=== PATIENT | female | born 1960 | race African-American/Black ===

== ENCOUNTER 2017-01-03 23:47 | Emergency (ER) ==
[2017-01-04] VITALS: BP 180/112; TEMP 98; BMI 29.2
[2017-01-04] MEDS ORDERED: LASIX IM STA (00:23)
[2017-01-04 01:04] LABS: BASOPHILS # (AUTO) 0.1 K/uL (0-0.2); EOSINOPHILS # (AUTO) 0.1 K/ul (0.0-0.7); EOSINOPHILS % (AUTO) 1.6 % (0.0-7.0); HEMATOCRIT 34.7 % (37.0-47.0); HEMOGLOBIN 11.3 g/dl (12.0-16.0); IMMATURE GRANULOCYTE % (AUTO) 0.4 % (0.0-5.0); LYMPHOCYTES % (AUTO) 29.3 (10.0-50.0); MEAN CORPUSCULAR HEMOGLOBIN 29.6 pg (27.0-31.0); MEAN CORPUSCULAR HGB CONC 32.6 (31.8-35.4); MEAN CORPUSCULAR VOLUME 90.8 fl (81.0-99.0); MONOCYTES # (AUTO) 0.6 K/uL (0.4-2.0); MONOCYTES % (AUTO) 8.7 (0-10); PLATELET COUNT 369 10^3/uL (140-440); RED BLOOD COUNT 3.82 10^6/ul (4.20-5.40); WHITE BLOOD COUNT 6.82 K/ul (4.6-10.2)
[2017-01-04 01:28] LABS: ALBUMIN 2.6 g/dL (3.4-5.0); ALBUMIN/GLOBULIN RATIO 0.67; ANION GAP 13.2; BILIRUBIN,TOTAL 0.63 mg/dL (0.00-1.20); BUN/CREATININE RATIO 15.83; CALCIUM 8.5 mg/dL (8.2-10.2); CREATININE 1.2 mg/dL (0.60-1.30); POTASSIUM 3.2 mmol/L (3.5-5.10); TOTAL PROTEIN 6.5 g/dL (6.4-8.2)
[2017-01-04] MEDS ORDERED: K-DUR PO STA (02:24)
--- NOTE | 2017-01-04 02:27 | ED.PDOC ---
General ED Provider: Dr. KAIDEN ABDALLA-ER Chief Complaint: Extremity Swelling/Pain Stated Complaint: my legs are swelling and my weight is up--i have not been taking the lasix like i should Time Seen by Physician: 23:50 Mode of Arrival: Walk-In Information Source: Patient Exam Limitations: No limitations Primary Care Provider: KENNY STARR Nursing and Triage Documentation Reviewed and Agree: Yes Cardiovascular Complaint Exam - Hypertension Complaint/Exam Onset/Duration: 24hrs Symptoms Are: Still present Timing: Constant Aggravating: Reports: None Alleviating: Reports: None Associated Signs and Symptoms: Reports: Swelling. Denies: Chest pain, Vision changes, Anxiety, Recent stress, Headache, Numbness, Tingling, Weakness, Dizziness, Short of air Cardiac Risk Factors: Reports: Hypertension Recent Change in Medications: No A/V [place]: No Papilledema Present: No JVD Present: No Carotid Bruit Present: No Femoral Pulses Bounding: Yes Differential Diagnoses: Other Review of Systems - Review Of Systems Constitutional: Reports: No symptoms Eyes: Reports: No symptoms Ears, Nose, Mouth, Throat: Reports: No symptoms Respiratory: Reports: No symptoms Cardiac: Reports: No symptoms, Other (leg swelling) GI: Reports: No symptoms : Reports: No symptoms Musculoskeletal: Reports: No symptoms Skin: Reports: No symptoms Neurological: Reports: Anxiety Endocrine: Reports: No symptoms Hematologic/Lymphatic: Reports: No symptoms All Other Systems: Reviewed and Negative Past Medical History - Past Medical History Previously Healthy: Yes Endocrine: Reports: DM 2 Cardiovascular: Reports: Hypertension, CHF Respiratory: Reports: Bronchitis Hematological: Reports: None Gastrointestinal: Reports: None Genitourinary: Reports: None Neuro/Psych: Reports: None Musculoskeletal: Reports: Arthritis, Other Cancer: Reports: None Last Menstrual Period: 1984 hyst - Surgical History General Surgical History: Reports: Hysterectomy (1984 Hysterectomy), Orthopedic (no repair of left rotator cuff), Unknown - Family History Family History: Reports: Unknown - Social History Smoking Status: Current every day smoker, Heavy tobacco smoker Hx Substance Use: No Alcohol Screening: None Lives: With family - Immunizations Tetanus Shot up to Date: No (unsure) Physical Exam - Physical Exam Appearance: Well-appearing, No pain distress, Well-nourished Eyes: CHOCO, EOMI, Conjunctiva clear ENT: Ears normal, Nose normal, Oropharynx normal Neck: Supple Respiratory: Airway patent, Breath sounds clear, Breath sounds equal, Respirations nonlabored Cardiovascular: RRR GI/: Soft Musculoskeletal: Edema Skin: Warm, Dry, Normal color Neurological: Sensation intact Psychiatric: Affect appropriate, Mood appropriate Re-Evaluation - Re-Evaluation Time of Re-Evaluation: 02:27 Status: Improved (voided several times--noted improved in leg edema) Vital Signs Stable: Yes Pain Level: 0 Appearance: NAD Lungs: Clear Skin: Warm and Dry Neuro: Alert and Oriented X3 CV: RRR Critical Care Note - Critical Care Note Total Time (mins): 0 Course - Course Hematology/Chemistry: 01/04/17 00:45 01/04/17 00:45 Orders, Labs, Meds: Lab Review 01/04/17 01/04/17 00:45 00:45 WBC 6.82 RBC 3.82 L Hgb 11.3 L Hct 34.7 L MCV 90.8 MCH 29.6 MCHC 32.6 RDW Coeff of [place] 15.6 H Plt Count 369 Immature Gran % (Auto) 0.4 Neut % (Auto) 59.0 Lymph % (Auto) 29.3 [place] % (Auto) 8.7 Eos % (Auto) 1.6 Baso % (Auto) 1.0 Immature Gran # (Auto) 0.0 Neut # 4.0 Lymph # 2.0 [place] # 0.6 Eos # 0.1 Baso # 0.1 Sodium 142 Potassium 3.2 L Chloride 106 Carbon Dioxide 26 Anion Gap 13.2 BUN 19 H Creatinine 1.20 Estimated GFR (MDRD) 56.00 BUN/Creatinine Ratio 15.83 Glucose 232 H Calcium 8.5 Total Bilirubin 0.63 AST 18 ALT 22 Alkaline Phosphatase 117 H Total Protein 6.5 Albumin 2.6 L Globulin 3.9 Albumin/Globulin Ratio 0.67 Orders Category Date Time Status I and O [INTAKE & OUTPUT] Q4HR CARE 01/04/17 01:20 Active CBC W/ AUTO DIFF Stat LAB 01/04/17 00:45 Completed CMP [COMPREHENSIVE METABOLIC PANEL] Stat LAB 01/04/17 00:45 Completed Furosemide [Lasix] MEDS 01/04/17 00:23 Discontinued 80 mg IM ONCE STA Potassium Chloride [K-Dur] MEDS 01/04/17 02:24 Stat 40 meq PO ONCE STA Medications Generic Name Dose Route Start Last Admin Trade Name Freq PRN Reason Stop Dose Admin Potassium Chloride 40 meq 01/04/17 02:24 K-Dur PO 01/04/17 02:25 ONCE STA Discontinued Medications Generic Name Dose Route Start Last Admin Trade Name Maame PRN Reason Stop Dose Admin Furosemide 80 mg 01/04/17 00:23 01/04/17 00:35 Lasix IM 01/04/17 00:24 80 mg ONCE STA Administration Vital Signs: Temp Pulse Resp BP Pulse Ox 01/03/17 23:49 98 F 96 H 18 180/112 H 96 FRANCIS Risk Score FRANCIS Risk Score: Risk Score Odds of by 30D 0 0.1 (0.1-0.2) 1 0.3 (0.2-0.3) 2 0.4 (0.3-0.5) 3 0.7 (0.6-0.9) 4 1.2 (1.0-1.5) 5 2.2 (1.9-2.6) 6 3.0 (2.5-3.6) 7 4.8 (3.8-6.1) Departure - Departure Time of Disposition: :28 Disposition: HOME SELF-CARE Discharge Problem: Acute exacerbation of CHF (congestive heart failure) Qualifiers: Congestive heart failure type: unspecified congestive heart failure type Qualified Code(s): I50.9 - Heart failure, unspecified Instructions: Heart Failure (ED) Condition: Good Pt referred to PMD for follow-up: Yes Additional Instructions: take lasix as prescribed--add k-dur 20meq q daily--come to office next week for bmp and magnesium Allergies/Adverse Reactions: Allergies Penicillins Adverse Reaction (Verified 02/04/16 03:25) Possible reaction, reaction unknown sulfamethoxazole [From Bactrim] Adverse Reaction (Verified 02/04/16 03:25) Dizziness trimethoprim [From Bactrim] Adverse Reaction (Verified 02/04/16 03:25) Dizziness Home Medications: Ambulatory Orders Furosemide [Lasix Tab] 20 mg PO BID 12/21/14 Insulin Lispro [Humalog] 5 unit SUBCUT TIDWM 12/21/14 Hydrocodone Bit/Acetaminophen [[place] 5-325] 1 - 2 tab PO Q6HR PRN #12 tablet Albuterol Sulfate [Proair Hfa] 2 puff IH QID #1 puff 02/07/16 Metoprolol Tartrate [Lopressor] 25 mg PO DAILY #1 02/07/16 Tiotropium [place] [Spiriva] 18 mcg IH DAILY #1 cap.w.dev 02/07/16 Disposition Discussed With: Patient
== END 2017-01-04 02:40 | disposition home or self-care (01) ==
LOC: ED 23:47
DX: I50.9 Heart failure, unspecified (principal); I10 Essential (primary) hypertension; E11.9 Type 2 diabetes mellitus without complications; F17.210 Nicotine dependence, cigarettes, uncomplicated; Z79.899 Other long term (current) drug therapy
CPT/HCPCS: 36415; 80053; 85025; 96372; 99283

== ENCOUNTER 2017-01-24 11:01 | Emergency (ER) ==
[2017-01-24 11:08] VITALS: BP 182/79; TEMP 97.1; BMI 28.4
[2017-01-24] MEDS ORDERED: SOLU-MEDROL 125 MG IVP STA (11:21)
[2017-01-24] MEDS ORDERED: DUONEB NEB STA (11:21)
[2017-01-24 11:40] LABS: ABG BASE EXCESS 1 (-2.0-2.0); ABG HCO3 25.9 (22.0-26.0); ABG PCO2 43.1 mmHg (35-45); ABG PH 7.387 (7.35-7.45); ABG TCO2 27 (22.0-28.0)
[2017-01-24 11:47] LABS: BASOPHILS # (AUTO) 0.1 K/uL (0-0.2); BASOPHILS % (AUTO) 0.8 % (0.0-3.0); EOSINOPHILS # (AUTO) 0.1 K/ul (0.0-0.7); EOSINOPHILS % (AUTO) 1.4 % (0.0-7.0); HEMATOCRIT 35.9 % (37.0-47.0); HEMOGLOBIN 11.6 g/dl (12.0-16.0); IMMATURE GRANULOCYTE % (AUTO) 0.5 % (0.0-5.0); LYMPHOCYTES # (AUTO) 1.7 K/uL (0.60-3.4); LYMPHOCYTES % (AUTO) 28.5 (10.0-50.0); MEAN CORPUSCULAR HEMOGLOBIN 29.4 pg (27.0-31.0); MEAN CORPUSCULAR HGB CONC 32.3 (31.8-35.4); MEAN CORPUSCULAR VOLUME 91.1 fl (81.0-99.0); MONOCYTES # (AUTO) 0.5 K/uL (0.4-2.0); MONOCYTES % (AUTO) 8.6 (0-10); NEUTROPHILS # (AUTO) 3.6 K/ul (2.0-6.9); NEUTROPHILS % (AUTO) 60.2; PLATELET COUNT 392 10^3/uL (140-440); RED BLOOD COUNT 3.94 10^6/ul (4.20-5.40)
[2017-01-24 12:06] LABS: FLU INTERNAL QC INTERNAL QC VALID; RAPID FLU A NEGATIVE (NEGATIVE); RAPID FLU B NEGATIVE (NEGATIVE)
[2017-01-24 12:18] LABS: ALBUMIN 2.6 g/dL (3.4-5.0); ALBUMIN/GLOBULIN RATIO 0.74; ANION GAP 10.8; BILIRUBIN,TOTAL 0.81 mg/dL (0.00-1.20); BUN/CREATININE RATIO 17.14; CREATININE 1.05 mg/dL (0.60-1.30); POTASSIUM 3.8 mmol/L (3.5-5.10); TOTAL PROTEIN 6.1 g/dL (6.4-8.2); TROPONIN I 0.037 ng/ml (0.0000-0.4000)
[2017-01-24] MEDS ORDERED: ZITHROMAX PO STA (13:14)
--- NOTE | 2017-01-24 13:19 | ED.PDOC ---
General ED Provider: Dr. TYRELL DANIELS Chief Complaint: Shortness of Air Stated Complaint: shortness of breath Time Seen by Physician: 11:00 Mode of Arrival: Walk-In Information Source: Patient Exam Limitations: No limitations Primary Care Provider: KENNY STARR Nursing and Triage Documentation Reviewed and Agree: Yes (seen with entire nursing staff at all times no dyspnea noted ) Respiratory Complaint Exam - Shortness of Air Complaint/Exam Onset/Duration: 2 days Symptoms Are: Still present Timing: Intermittent Initial Severity: Moderate Current Severity: Moderate Character: Reports: Dyspnea on exertion Aggravating: Reports: None Alleviating: Reports: Bronchodilators, Upright position Associated Signs and Symptoms: Reports: Cough, Wheezing, Chills, Nasal congestion. Denies: Chest pain with cough, Chest pain, Fever, Diaphoresis, Dizziness, Calf pain, Calf swelling, Edema, Rapid breathing, Labored breathing, Decreased intake History of Healthcare-Acquired Pneumonia: No Pulmonary Embolism Risk Factors: Reports: Smoking Cardiac Risk Factors: Reports: Diabetes, Hypertension Pseudomonas Risk Factors: Reports: Chronic Lung Disease Tuberculosis Risk Factors: Reports: None Home Oxygen Use: No Recent Stress Test: No Recent Echo/LV Function: No Respiratory Distress: None Stridor Present: No Tracheal Deviation: No Subcutaneous Emphysema: No Accessory Muscle Use: No Retractions: Not Present Diminished Breath Sounds: Yes Prolonged Expiratory Phase: No Unable to Speak Full Sentences: No Fatigue: No Leg Swelling: No Jean Paul's Sign Present: No Grunting Respirations: No Kussmaul Respirations: No Differential Diagnoses: COPD Exacerbation, Pneumonia Review of Systems - Review Of Systems Constitutional: Reports: No symptoms Eyes: Reports: No symptoms Ears, Nose, Mouth, Throat: Reports: No symptoms Respiratory: Reports: Cough Cardiac: Reports: No symptoms GI: Reports: No symptoms : Reports: No symptoms Musculoskeletal: Reports: No symptoms Skin: Reports: No symptoms Neurological: Reports: No symptoms Endocrine: Reports: No symptoms Hematologic/Lymphatic: Reports: No symptoms All Other Systems: Reviewed and Negative Past Medical History - Past Medical History Previously Healthy: Yes Endocrine: Reports: DM 2 Cardiovascular: Reports: Hypertension, CHF Respiratory: Reports: Bronchitis Hematological: Reports: None Gastrointestinal: Reports: None Genitourinary: Reports: None Neuro/Psych: Reports: None Musculoskeletal: Reports: Arthritis, Other Cancer: Reports: None Last Menstrual Period: hysterectomy - Surgical History General Surgical History: Reports: Hysterectomy (1985 Hysterectomy), Orthopedic (no repair of left rotator cuff), Unknown - Family History Family History: Reports: Unknown - Social History Smoking Status: Current every day smoker, Heavy tobacco smoker Hx Substance Use: No Alcohol Screening: None Physical Exam - Physical Exam Appearance: Well-appearing, No pain distress, Well-nourished Eyes: CHOCO, EOMI, Conjunctiva clear ENT: Ears normal, Nose normal, Oropharynx normal Respiratory: Airway patent, Breath sounds equal, Respirations nonlabored, Rhonchi, Wheezes Cardiovascular: RRR, Pulses normal, No rub, No murmur GI/: Soft, Nontender, No masses, Bowel sounds normal, No Organomegaly Musculoskeletal: Normal strength, ROM intact, No edema, No calf tenderness Skin: Warm, Dry, Normal color Neurological: Sensation intact, Motor intact, Reflexes intact, Cranial nerves intact, Alert, Oriented Psychiatric: Affect appropriate, Mood appropriate Interpretation - Radiology Interpretation Radiology Interpretation By: Radiologist Critical Care Note - Critical Care Note Total Time (mins): 0 Course - Course Hematology/Chemistry: 01/24/17 11:39 01/24/17 11:39 Orders, Labs, Meds: Lab Review 01/24/17 01/24/17 01/24/17 11:22 11:39 11:39 WBC 5.90 RBC 3.94 L Hgb 11.6 L Hct 35.9 L MCV 91.1 MCH 29.4 MCHC 32.3 RDW Coeff of [place] 15.6 H Plt Count 392 Immature Gran % (Auto) 0.5 Neut % (Auto) 60.2 Lymph % (Auto) 28.5 [place] % (Auto) 8.6 Eos % (Auto) 1.4 Baso % (Auto) 0.8 Immature Gran # (Auto) 0.0 Neut # 3.6 Lymph # 1.7 [place] # 0.5 Eos # 0.1 Baso # 0.1 Puncture Site Rrad O2 Saturation 91.0 L ABG pH 7.387 ABG pCO2 43.1 ABG pO2 62.0 L ABG HCO3 25.9 ABG Total CO2 27 ABG Base Excess 1 Ayad Test + FiO2 % 21.0 Sodium 141 Potassium 3.8 Chloride 106 Carbon Dioxide 28 Anion Gap 10.8 BUN 18 Creatinine 1.05 Estimated GFR (MDRD) 65.00 BUN/Creatinine Ratio 17.14 Glucose 258 H Calcium 9.0 Total Bilirubin 0.81 AST 14 L ALT 12 Alkaline Phosphatase 112 H Total Creatine Kinase 64 Troponin I 0.0370 Total Protein 6.1 L Albumin 2.6 L Globulin 3.5 Albumin/Globulin Ratio 0.74 Influenza A (Rapid) Influenza B (Rapid) 01/24/17 11:40 WBC RBC Hgb Hct MCV MCH MCHC RDW Coeff of [place] Plt Count Immature Gran % (Auto) Neut % (Auto) Lymph % (Auto) [place] % (Auto) Eos % (Auto) Baso % (Auto) Immature Gran # (Auto) Neut # Lymph # [place] # Eos # Baso # Puncture Site O2 Saturation ABG pH ABG pCO2 ABG pO2 ABG HCO3 ABG Total CO2 ABG Base Excess Ayad Test FiO2 % Sodium Potassium Chloride Carbon Dioxide Anion Gap BUN Creatinine Estimated GFR (MDRD) BUN/Creatinine Ratio Glucose Calcium Total Bilirubin AST ALT Alkaline Phosphatase Total Creatine Kinase Troponin I Total Protein Albumin Globulin Albumin/Globulin Ratio Influenza A (Rapid) Negative Influenza B (Rapid) Negative Orders Category Date Time Status ABG DRAW REQUEST Stat CARDIO 01/24/17 11:22 Completed EKG-(ED ONLY) Stat CARDIO 01/24/17 11:20 Completed NEBULIZER TREATMENT Stat CARDIO 01/24/17 11:21 Completed NPO REMINDER: IMAGING ONCE CARE 01/24/17 11:21 Completed ED IV/MEDIPORT/POWERPORT .ONCE EMERGENCY 01/24/17 11:20 Active ABG Stat LAB 01/24/17 11:22 Completed CBC W/ AUTO DIFF Stat LAB 01/24/17 11:39 Completed COMPREHENSIVE METABOLIC PANEL Stat LAB 01/24/17 11:39 Completed CREATINE KINASE Stat LAB 01/24/17 11:39 Completed MOLECULAR GROUP A STREP Stat LAB 01/24/17 11:40 Results RAPID FLU A/B Stat LAB 01/24/17 11:40 Completed STREP SCREEN Stat LAB 01/24/17 11:40 Results TROPONIN I Stat LAB 01/24/17 11:39 Completed 0.9 % Sodium Chloride [Saline Flush] MEDS 01/24/17 11:20 Active 1 syr IVF PRN PRN Azithromycin [Zithromax] MEDS 01/24/17 13:14 Stat 1,000 mg PO ONCE STA Ipratropium/Albuterol Neb [Duoneb] MEDS 01/24/17 11:21 Discontinued 1 vial NEB ONCE STA Methylprednisolone Sod Succ/Pf [Solu-Medrol 125 mg] MEDS 01/24/17 11:21 Discontinued [address] CHEST PE PROTOCOL Stat RADS 01/24/17 11:21 Taken Medications Generic Name Dose Route Start Last Admin Trade Name Frenidhi PRN Reason Stop Dose Admin Sodium Chloride 1 syr 01/24/17 11:20 01/24/17 11:56 Saline Flush IVF 1 syr PRN PRN Administration To flush IV Discontinued Medications Generic Name Dose Route Start Last Admin Trade Name Freq PRN Reason Stop Dose Admin Albuterol/Ipratropium 1 vial 01/24/17 11:21 01/24/17 11:31 Duoneb NEB 01/24/17 11:22 1 vial ONCE STA Administration Azithromycin 1,000 mg 01/24/17 13:14 Zithromax PO 01/24/17 13:15 ONCE STA Methylprednisolone Sodium Succinate 125 mg 01/24/17 11:21 01/24/17 11:55 Solu-Medrol 125 Mg IVP 01/24/17 11:22 125 mg ONCE STA Administration Vital Signs: Temp Pulse Resp BP Pulse Ox 01/24/17 11:01 97.1 F L 93 H 20 182/79 H 96 Departure - Departure Time of Disposition: 13:19 Disposition: HOME SELF-CARE Discharge Problem: Bronchitis Instructions: Acute Bronchitis (ED), Bronchospasm (ED), Wheezing (ED), How Your Lungs Work (ED), How to Stop Smoking (ED) Condition: Good Pt referred to PMD for follow-up: Yes Additional Instructions: Please call your Family Physician as soon as possible to schedule a follow-up appointment. Allergies/Adverse Reactions: Allergies Penicillins Adverse Reaction (Verified 01/24/17 11:10) Possible reaction, reaction unknown sulfamethoxazole [From Bactrim] Adverse Reaction (Verified 01/24/17 11:10) Dizziness trimethoprim [From Bactrim] Adverse Reaction (Verified 01/24/17 11:10) Dizziness Home Medications: Ambulatory Orders Furosemide [Lasix Tab] 20 mg PO BID 12/21/14 Insulin Lispro [Humalog] 5 unit SUBCUT TIDWM 12/21/14 Hydrocodone Bit/Acetaminophen [[place] 5-325] 1 - 2 tab PO Q6HR PRN #12 tablet Albuterol Sulfate [Proair Hfa] 2 puff IH QID #1 puff 02/07/16 Metoprolol Tartrate [Lopressor] 25 mg PO DAILY #1 02/07/16 Tiotropium [place] [Spiriva] 18 mcg IH DAILY #1 cap.w.dev 02/07/16 Disposition Discussed With: Patient
--- NOTE | 2017-01-24 13:19 | CT ---
EXAM: CTA CHEST (PE PROTOCOL) HISTORY: Shortness of breath TECHNIQUE: CTA chest with intravenous contrast. Multiplanar images were provided with 3-D reconstru ctions. 100 mL Omnipaque. COMPARISON: 08/03/2014 FINDINGS: No pulmonary arterial defects identified. Minimal thoracic aortic atherosclerosis. Moderate cardiom egaly is present with a small pericardial effusion. There are bilateral pleural effusions, tiny on the left and a small on the right. Lungs reveal pulmo nary vascular congestion with no definite central interstitial edema. There is opacity in the security officer ior right lower lobe which can be consistent with pneumonia and atelectasis. Mild atelectasis is not ed in the left lung base. No pneumothorax. No acute bony abnormality. There is mild reflux of contrast opacified blood into the hepatic veins c onsistent with a degree of right heart strain. IMPRESSION: 1. No pulmonary arterial thromboembolism. 2. Cardiomegaly with mild pulmonary vascular congestion. 3. Bilateral pleural effusions, tiny on the left and small on the right. Cannot exclude basilar pne umonia at least on the right. Coexisting atelectasis is likely.
== END 2017-01-24 13:33 | disposition home or self-care (01) ==
LOC: ED 11:01
DX: J40 Bronchitis, not specified as acute or chronic (principal); I10 Essential (primary) hypertension; E11.9 Type 2 diabetes mellitus without complications; F17.210 Nicotine dependence, cigarettes, uncomplicated; Z79.899 Other long term (current) drug therapy; R06.02 Shortness of breath
CPT/HCPCS: 36415; 80053; 82550; 82803; 84484; 85025; 87651; 87804; 87880; 93005; 93010; 94640; 96374; 99283

== ENCOUNTER 2017-02-17 20:11 | Emergency (ER) ==
[2017-02-17 20:19] VITALS: BP 187/123; TEMP 98.6; BMI 27.6
[2017-02-17] MEDS ORDERED: TETANUS DIPHTHERIA TOXOIDS IM ONE (20:19)
--- NOTE | 2017-02-17 20:26 | ED.PDOC ---
General ED Provider: Dr. KAIDEN ABDALLA-ER Chief Complaint: Knee Pain/Injury Stated Complaint: i fell and hurt my knee Time Seen by Physician: 20:15 Mode of Arrival: Walk-In Information Source: Patient Exam Limitations: No limitations Primary Care Provider: KENNY STARR Nursing and Triage Documentation Reviewed and Agree: No (she says nothing else hurts but her knee) Musculoskeletal Complaint Exam - Knee Pain Complaint/Exam Mechanism of Injury: Reports: Trauma Onset/Duration: today Symptoms Are: Still present Onset of Pain: Reports: Immediate Initial Severity: Mild Current Severity: Mild Location: Reports: Discrete (right knee) Character: Reports: Dull, Aching Aggravating: Reports: Movement, Weight bearing, Prolonged standing Associated Signs and Symptoms: Reports: Swelling, Bruising, Tingling. Denies: Redness, Fever, Weakness, Numbness Able to Bear Weight: Yes Knee Findings: Present: Swelling, Ecchymosis, Tenderness, Limited range of motion Differential Diagnoses: Contusion, Abrasion, Sprain, Strain Review of Systems - Review Of Systems Constitutional: Reports: No symptoms Eyes: Reports: No symptoms Ears, Nose, Mouth, Throat: Reports: No symptoms Respiratory: Reports: No symptoms Cardiac: Reports: No symptoms GI: Reports: No symptoms : Reports: No symptoms Musculoskeletal: Reports: Joint pain Skin: Reports: No symptoms Neurological: Reports: No symptoms Endocrine: Reports: No symptoms Hematologic/Lymphatic: Reports: No symptoms All Other Systems: Reviewed and Negative Past Medical History - Past Medical History Previously Healthy: Yes Endocrine: Reports: DM 2 Cardiovascular: Reports: Hypertension, CHF Respiratory: Reports: Bronchitis Hematological: Reports: None Gastrointestinal: Reports: None Genitourinary: Reports: None Neuro/Psych: Reports: None Musculoskeletal: Reports: Arthritis, Other Cancer: Reports: None Last Menstrual Period: hysterectomy - Surgical History General Surgical History: Reports: Hysterectomy (1985 Hysterectomy), Orthopedic (no repair of left rotator cuff), Unknown - Family History Family History: Reports: Unknown - Social History Smoking Status: Current every day smoker, Heavy tobacco smoker Hx Substance Use: No Alcohol Screening: None Lives: With family - Immunizations Tetanus Shot up to Date: No Physical Exam - Physical Exam Appearance: Well-appearing, No pain distress, Well-nourished Pain Distress: Mild Eyes: CHOCO, EOMI, Conjunctiva clear ENT: Ears normal, Nose normal, Oropharynx normal Neck: Supple Respiratory: Airway patent, Breath sounds clear, Breath sounds equal, Respirations nonlabored Cardiovascular: RRR, Pulses normal, No rub, No murmur GI/: Soft, Nontender, No masses, Bowel sounds normal, No Organomegaly Musculoskeletal: Limited ROM Skin: Warm, Dry, Normal color Neurological: Sensation intact, Motor intact, Reflexes intact, Cranial nerves intact, Alert, Oriented Psychiatric: Affect appropriate, Mood appropriate Interpretation - Radiology Interpretation Radiology Interpretation By: ED Physician Radiology Results: Negative Critical Care Note - Critical Care Note Total Time (mins): 0 Course - Course Orders, Labs, Meds: Orders Category Date Time Status Tetanus, Diphtheria Tox,Adult [Tetanus Diphtheria MEDS 02/17/17 20:19 Discontinued Toxoids] 0.5 ml IM .ONCE ONE KNEE, RIGHT 4 VIEWS Stat RADS 02/17/17 20:18 Taken Medications Discontinued Medications Generic Name Dose Route Start Last Admin Trade Name Freq PRN Reason Stop Dose Admin Tetanus/Diphtheria Toxoids 0.5 ml 02/17/17 20:19 02/17/17 20:30 Tetanus Diphtheria Toxoids IM 02/17/17 20:20 0.5 ml .ONCE ONE Administration Vital Signs: Temp Pulse Resp BP Pulse Ox 02/17/17 20:13 98.6 F 97 H 20 187/123 H 96 Departure - Departure Time of Disposition: 20:36 Disposition: HOME SELF-CARE Discharge Problem: Injury of knee Instructions: Knee Pain (ED) Condition: Good Pt referred to PMD for follow-up: Yes Additional Instructions: tylenol for pain--wash wound with soap and water and cover with triple antbx ointment till healed Allergies/Adverse Reactions: Allergies Penicillins Adverse Reaction (Verified 02/17/17 20:19) Possible reaction, reaction unknown sulfamethoxazole [From Bactrim] Adverse Reaction (Verified 02/17/17 20:19) Dizziness trimethoprim [From Bactrim] Adverse Reaction (Verified 02/17/17 20:19) Dizziness Home Medications: Ambulatory Orders Furosemide [Lasix Tab] 20 mg PO BID 12/21/14 Insulin Lispro [Humalog] 5 unit SUBCUT TIDWM 12/21/14 Albuterol Sulfate [Proair Hfa] 2 puff IH QID #1 puff 02/07/16 Metoprolol Tartrate [Lopressor] 25 mg PO DAILY #1 02/07/16 Tiotropium [place] [Spiriva] 18 mcg IH DAILY #1 cap.w.dev 02/07/16 Disposition Discussed With: Patient
[2017-02-17] MEDS ORDERED: NORCO 7.5-325 PO STA (20:37)
--- NOTE | 2017-02-18 07:46 | DI ---
EXAM: Four views of the right knee. History: Right knee trauma. Findings: No acute fracture or dislocation. Vascular calcifications. Joint spaces are relatively p reserved. Minimal superior patellar enthesiopathy Impression: No acute osseous abnormality
== END 2017-02-17 20:53 | disposition home or self-care (01) ==
LOC: ED 20:11
DX: S80.01XA Contusion of right knee, initial encounter (principal); F17.210 Nicotine dependence, cigarettes, uncomplicated; W19.XXXA Unspecified fall, initial encounter
CPT/HCPCS: 90471; 90714; 99283

== ENCOUNTER 2017-02-28 18:27 | Emergency (ER) ==
[2017-02-28 18:31] VITALS: BP 183/101; TEMP 101.6; BMI 27.4
[2017-02-28] MEDS ORDERED: LASIX IVP STA ×2 (18:46→19:57)
[2017-02-28 19:00] LABS: ABG BASE EXCESS 0 (-2.0-2.0); ABG HCO3 21.8 (22.0-26.0); ABG PCO2 23.3 mmHg (35-45); ABG PH 7.579 (7.35-7.45); ABG TCO2 23 (22.0-28.0)
[2017-02-28] MEDS ORDERED: URO-JET MUCOUSMEMB STA (19:06)
[2017-02-28] MEDS ORDERED: AZACTAM 1 GM in SODIUM CHLORIDE 50 ML IV STA (19:06)
[2017-02-28] MEDS ORDERED: AZACTAM ONE (19:08)
[2017-02-28] MEDS ORDERED: SODIUM CHLORIDE 1,000 ML IV STA (19:12)
[2017-02-28 19:21] LABS: BASOPHILS % (AUTO) 0.5 % (0.0-3.0); HEMATOCRIT 40.5 % (37.0-47.0); HEMOGLOBIN 13.3 g/dl (12.0-16.0); IMMATURE GRANULOCYTE % (AUTO) 0.9 % (0.0-5.0); LYMPHOCYTES # (AUTO) 0.5 K/uL (0.60-3.4); LYMPHOCYTES % (AUTO) 6.4 (10.0-50.0); MEAN CORPUSCULAR HEMOGLOBIN 29.2 pg (27.0-31.0); MEAN CORPUSCULAR HGB CONC 32.8 (31.8-35.4); MONOCYTES # (AUTO) 0.5 K/uL (0.4-2.0); MONOCYTES % (AUTO) 6.5 (0-10); NEUTROPHILS # (AUTO) 6.6 K/ul (2.0-6.9); NEUTROPHILS % (AUTO) 85.7; PLATELET COUNT 349 10^3/uL (140-440); RED BLOOD COUNT 4.55 10^6/ul (4.20-5.40); WHITE BLOOD COUNT 7.71 K/ul (4.6-10.2)
[2017-02-28 19:31] LABS: ALBUMIN 2.6 g/dL (3.4-5.0); ALBUMIN/GLOBULIN RATIO 0.55; ANION GAP 21.7; BILIRUBIN,TOTAL 1.28 mg/dL (0.00-1.20); BUN/CREATININE RATIO 15.94; CALCIUM 9.2 mg/dL (8.2-10.2); CREATININE 1.38 mg/dL (0.60-1.30); POTASSIUM 3.7 mmol/L (3.5-5.10); TOTAL PROTEIN 7.3 g/dL (6.4-8.2)
[2017-02-28 19:47] LABS: TROPONIN I 0.118 ng/ml (0.0000-0.4000)
[2017-02-28 19:48] LABS: CREATINE KINASE MB 0.3 ng/ml (0.0-3.6)
[2017-02-28 19:52] LABS: BILIRUBIN,URINE 2+ (NEGATIVE); KETONES,URINE 1+ (NEGATIVE); LEUKOCYTE ESTERASE ,URINE Negative (NEGATIVE); NITRITE,URINE Negative (NEGATIVE); PH,URINE 5.5 (5-9); PROTEIN,URINE 3+ (NEGATIVE); URINE, BLOOD 3+ (NEGATIVE)
--- NOTE | 2017-02-28 19:52 | CT ---
EXAM: CT chest without contrast. HISTORY: Dyspnea. Congestive heart failure. Comparison: CTA chest from 01/24/2017. Technique: CT chest was performed without contrast. Axial, coronal and sagittal reconstructions wer e obtained. Findings: Lung window evaluation demonstrates patchy ground-glass opacities throughout the bilateral lower lung s. There is moderate right pleural effusion and a mild left pleural effusion seen.. Thoracic soft tissue evaluation demonstrates no definite pathologically enlarged axillary lymphadenop athy identified. There is an enlarged anterior paratracheal mediastinal lymph node present measuring 2.1 x 1.6 cm in diameter at axial image number 24. There is a enlarge subcarinal mediastinal lymph node present measuring 1.6 x 2.1 cm in diameter at axial image number 32.. Hilar lymphadenopathy is not well assessed in the absence of IV contrast; however, soft tissue prominence of the bilateral hil ar regions may represent an element of hilar lymphadenopathy.. There is cardiomegaly present. Athero sclerotic arterial vascular calcifications are present including within the coronary artery distribut ion Bone window evaluation demonstrates thoracic spine degenerative changes. Impression: 1. Cardiomegaly and bilateral pleural effusions which suggest heart failure. 2. Ground-glass opacities at the bilateral lower lungs which can be seen with dependent pulmonary ed gera or lower lung pneumonia infiltrates. 3. Mediastinal lymphadenopathy. Recommend clinical evaluation for the cause of the patient's lympha denopathy. Soft tissue prominence at the bilateral melchor may represent hilar lymphadenopathy but is no t well assessed on noncontrast CT. 4. Atherosclerotic arterial vascular calcifications present including within the coronary artery dis tribution.
[2017-02-28 19:55] LABS: ADD URINE MICROSCOPIC YES
[2017-02-28] MEDS ORDERED: LEVAQUIN 500 MG in PREMIX 100 ML D5W 1 BAG IV STA (19:56)
[2017-02-28 19:57] LABS: FLU INTERNAL QC INTERNAL QC VALID; RAPID FLU A NEGATIVE (NEGATIVE); RAPID FLU B NEGATIVE (NEGATIVE)
--- NOTE | 2017-02-28 20:01 | CT ---
EXAM: Noncontrast CT head. HISTORY: Mental status changes COMPARISON: None available at the time of dictation. TECHNIQUE: Noncontrast CT head was performed with axial, coronal and sagittal reconstructions. Findings: There is preservation of the garcia-white differential without evidence of definitive large vessel acut e cortical infarct identified. No acute intracranial hemorrhage is identified. No midline shift is i dentified. No definitive intracranial mass lesion is identified within technical limitations of nonco ntrast CT. The basal cisterns are patent. The ventricles are normal in size and configuration. There is trace periventricular white matter hypodensity present. Limited evaluation of the skull demonstra tiffany no visualized lucent skull acute fractures or destructive osseous lesions identified within the v isualized portions of the skull. Partially visualized paranasal sinuses and mastoid air cells appear relatively clear in the visualized regions. Impression: 1. No acute intracranial hemorrhage or definitive large vessel acute cortical infarct identified. 2. Trace periventricular white matter hypodensity which is not specific but can be seen with chronic microvascular ischemic disease
--- NOTE | 2017-02-28 20:03 | ED.PDOC ---
General ED Provider: Dr. KAIDEN ABDALLA-ER Chief Complaint: Shortness of Air Stated Complaint: im sob with cough and congestion Time Seen by Physician: 18:30 Mode of Arrival: Wheelchair Information Source: Patient, Family Exam Limitations: No limitations Primary Care Provider: KENNY STARR Nursing and Triage Documentation Reviewed and Agree: Yes Respiratory Complaint Exam - Shortness of Air Complaint/Exam Onset/Duration: 2 days Symptoms Are: Still present Timing: Intermittent Initial Severity: Mild Current Severity: Moderate Character: Reports: Dyspnea at rest Aggravating: Reports: None Associated Signs and Symptoms: Reports: Cough, Fever, Chills, Decreased intake. Denies: Wheezing, Chest pain with cough, Chest pain, Diaphoresis, Nasal congestion, Dizziness, Calf pain, Calf swelling, Edema, Rapid breathing, Labored breathing History of Healthcare-Acquired Pneumonia: No Pulmonary Embolism Risk Factors: Reports: None Cardiac Risk Factors: Reports: CAD, Hypertension, CHF Home Oxygen Use: No Recent Stress Test: No Recent Echo/LV Function: Yes Stridor Present: No Tracheal Deviation: No Subcutaneous Emphysema: No Accessory Muscle Use: No Retractions: Not Present Diminished Breath Sounds: No Prolonged Expiratory Phase: No Unable to Speak Full Sentences: No Fatigue: No Leg Swelling: No Jean Paul's Sign Present: No Grunting Respirations: No Kussmaul Respirations: No Differential Diagnoses: CHF, Pulmonary Edema, Pneumonia Quality Indicator For Non-Traumatic Chest Pain/Syncope: EKG Performed Review of Systems - Review Of Systems Constitutional: Reports: Chills, Fever, Weakness Eyes: Reports: No symptoms Ears, Nose, Mouth, Throat: Reports: No symptoms Respiratory: Reports: Cough, Short of air Cardiac: Reports: No symptoms GI: Reports: No symptoms : Reports: No symptoms Musculoskeletal: Reports: No symptoms Skin: Reports: No symptoms Neurological: Reports: No symptoms Endocrine: Reports: No symptoms Hematologic/Lymphatic: Reports: No symptoms All Other Systems: Reviewed and Negative Past Medical History - Past Medical History Previously Healthy: Yes Endocrine: Reports: DM 2 Cardiovascular: Reports: Hypertension, CHF Respiratory: Reports: Bronchitis Hematological: Reports: None Gastrointestinal: Reports: None Genitourinary: Reports: None Neuro/Psych: Reports: None Musculoskeletal: Reports: Arthritis, Other Cancer: Reports: None Last Menstrual Period: none - Surgical History General Surgical History: Reports: Hysterectomy (1985 Hysterectomy), Orthopedic (no repair of left rotator cuff), Unknown - Family History Family History: Reports: Unknown - Social History Smoking Status: Current every day smoker, Heavy tobacco smoker Hx Substance Use: No Alcohol Screening: None Physical Exam - Physical Exam Appearance: Well-appearing, No pain distress, Well-nourished Eyes: CHOCO ENT: Ears normal, Nose normal, Oropharynx normal Neck: Supple Respiratory: Crackles, Rhonchi Cardiovascular: RRR, Pulses normal, No rub, No murmur GI/: Soft, Nontender, No masses, Bowel sounds normal, No Organomegaly Musculoskeletal: Normal strength, ROM intact, No edema, No calf tenderness Skin: Warm, Dry, Normal color Neurological: Sensation intact, Motor intact, Reflexes intact, Cranial nerves intact, Alert, Oriented Psychiatric: Affect appropriate, Mood appropriate Interpretation - Radiology Interpretation Radiology Interpretation By: Radiologist Radiology Results: Positive Exam Interpreted: CT Scan Critical Care Note - Critical Care Note Total Time (mins): 15 Course - Course Hematology/Chemistry: 02/28/17 19:06 02/28/17 19:06 Orders, Labs, Meds: Lab Review 02/28/17 02/28/17 02/28/17 18:44 19:06 19:06 WBC 7.71 RBC 4.55 Hgb 13.3 Hct 40.5 MCV 89.0 MCH 29.2 MCHC 32.8 RDW Coeff of Hol[place] 15.6 H Plt Count 349 Immature Gran % (Auto) 0.9 Neut % (Auto) 85.7 Lymph % (Auto) 6.4 L [place] % (Auto) 6.5 Eos % (Auto) 0.0 Baso % (Auto) 0.5 Immature Gran # (Auto) 0.1 Neut # 6.6 Lymph # 0.5 L [place] # 0.5 Eos # 0.0 Baso # 0.0 Puncture Site L brachial O2 Saturation 96.0 ABG pH 7.579 H* ABG pCO2 23.3 L ABG pO2 64.0 L ABG HCO3 21.8 L ABG Total CO2 23 ABG Base Excess 0 Ayad Test + FiO2 % 21.0 Sodium 143 Potassium 3.7 Chloride 103 Carbon Dioxide 22 Anion Gap 21.7 BUN 22 H Creatinine 1.38 H Estimated GFR (MDRD) 48.00 BUN/Creatinine Ratio 15.94 Glucose 234 H Lactic Acid Calcium 9.2 Total Bilirubin 1.28 H AST 27 ALT 14 Alkaline Phosphatase 124 H Total Creatine Kinase CK-MB (CK-2) CK-MB (CK-2) % Troponin I B-Natriuretic Peptide Total Protein 7.3 Albumin 2.6 L Globulin 4.7 Albumin/Globulin Ratio 0.55 Procalcitonin TSH Urine Color Urine Clarity Urine pH Ur Specific Ucon Urine Protein Urine Glucose (UA) Urine Ketones Urine Blood Urine Nitrite Urine Bilirubin Urine Urobilinogen Ur Leukocyte Esterase Urine Microscopic RBC Ur Squamous Epith Cells Amorphous Sediment Influenza A (Rapid) Influenza B (Rapid) 02/28/17 02/28/17 02/28/17 19:06 19:06 19:06 WBC RBC Hgb Hct MCV MCH MCHC RDW Coeff of [place] Plt Count Immature Gran % (Auto) Neut % (Auto) Lymph % (Auto) [place] % (Auto) Eos % (Auto) Baso % (Auto) Immature Gran # (Auto) Neut # Lymph # [place] # Eos # Baso # Puncture Site O2 Saturation ABG pH ABG pCO2 ABG pO2 ABG HCO3 ABG Total CO2 ABG Base Excess Ayad Test FiO2 % Sodium Potassium Chloride Carbon Dioxide Anion Gap BUN Creatinine Estimated GFR (MDRD) BUN/Creatinine Ratio Glucose Lactic Acid 26.0 H Calcium Total Bilirubin AST ALT Alkaline Phosphatase Total Creatine Kinase 155 CK-MB (CK-2) 0.3 CK-MB (CK-2) % 0.24246 Troponin I 0.1180 B-Natriuretic Peptide 3436 H Total Protein Albumin Globulin Albumin/Globulin Ratio Procalcitonin TSH Urine Color Urine Clarity Urine pH Ur Specific Ucon Urine Protein Urine Glucose (UA) Urine Ketones Urine Blood Urine Nitrite Urine Bilirubin Urine Urobilinogen Ur Leukocyte Esterase Urine Microscopic RBC Ur Squamous Epith Cells Amorphous Sediment Influenza A (Rapid) Influenza B (Rapid) 02/28/17 02/28/17 02/28/17 19:06 19:06 19:30 WBC RBC Hgb Hct MCV MCH MCHC RDW Coeff of [place] Plt Count Immature Gran % (Auto) Neut % (Auto) Lymph % (Auto) [place] % (Auto) Eos % (Auto) Baso % (Auto) Immature Gran # (Auto) Neut # Lymph # [place] # Eos # Baso # Puncture Site O2 Saturation ABG pH ABG pCO2 ABG pO2 ABG HCO3 ABG Total CO2 ABG Base Excess Ayad Test FiO2 % Sodium Potassium Chloride Carbon Dioxide Anion Gap BUN Creatinine Estimated GFR (MDRD) BUN/Creatinine Ratio Glucose Lactic Acid Calcium Total Bilirubin AST ALT Alkaline Phosphatase Total Creatine Kinase CK-MB (CK-2) CK-MB (CK-2) % Troponin I B-Natriuretic Peptide Total Protein Albumin Globulin Albumin/Globulin Ratio Procalcitonin 0.08 TSH 1.333 Urine Color Yellow Urine Clarity Slightly Urine pH 5.5 Ur Specific Ucon 1.020 Urine Protein 3+ Urine Glucose (UA) Trace Urine Ketones 1+ Urine Blood 3+ Urine Nitrite Negative Urine Bilirubin 2+ Urine Urobilinogen 2.0 Ur Leukocyte Esterase Negative Urine Microscopic RBC 5-10 Ur Squamous Epith Cells 2-5 Amorphous Sediment 1+ Influenza A (Rapid) Influenza B (Rapid) 02/28/17 19:30 WBC RBC Hgb Hct MCV MCH MCHC RDW Coeff of [place] Plt Count Immature Gran % (Auto) Neut % (Auto) Lymph % (Auto) [place] % (Auto) Eos % (Auto) Baso % (Auto) Immature Gran # (Auto) Neut # Lymph # [place] # Eos # Baso # Puncture Site O2 Saturation ABG pH ABG pCO2 ABG pO2 ABG HCO3 ABG Total CO2 ABG Base Excess Ayad Test FiO2 % Sodium Potassium Chloride Carbon Dioxide Anion Gap BUN Creatinine Estimated GFR (MDRD) BUN/Creatinine Ratio Glucose Lactic Acid Calcium Total Bilirubin AST ALT Alkaline Phosphatase Total Creatine Kinase CK-MB (CK-2) CK-MB (CK-2) % Troponin I B-Natriuretic Peptide Total Protein Albumin Globulin Albumin/Globulin Ratio Procalcitonin TSH Urine Color Urine Clarity Urine pH Ur Specific Ucon Urine Protein Urine Glucose (UA) Urine Ketones Urine Blood Urine Nitrite Urine Bilirubin Urine Urobilinogen Ur Leukocyte Esterase Urine Microscopic RBC Ur Squamous Epith Cells Amorphous Sediment Influenza A (Rapid) Negative Influenza B (Rapid) Negative Orders Category Date Time Status ABG DRAW REQUEST Stat CARDIO 02/28/17 18:44 Completed EKG-(ED ONLY) Stat CARDIO 02/28/17 18:44 Completed Line Up Machine Operator [ED WEB PRESS OPERATOR APPLIED] .ONCE EMERGENCY 02/28/17 18:45 Active Catheter [ED CATHETER INSERTION AND CARE] .ONCE EMERGENCY 02/28/17 19:06 Active IV [ED IV/MEDIPORT/POWERPORT] .ONCE EMERGENCY 02/28/17 18:45 Active OXYGEN [ED APPLY O2] .ONCE EMERGENCY 02/28/17 20:04 Active ABG Stat LAB 02/28/17 18:44 Completed BLOOD CULTURE (ED ONLY) Stat LAB 02/28/17 19:06 Received BNP [B-TYPE NATRIURETIC PEPTIDE] Stat LAB 02/28/17 19:06 Completed CBC W/ AUTO DIFF Stat LAB 02/28/17 19:06 Completed COMPREHENSIVE METABOLIC PANEL Stat LAB 02/28/17 19:06 Completed CREATINE KINASE Stat LAB 02/28/17 19:06 Completed LACTIC ACID Stat LAB 02/28/17 19:06 Completed MOLECULAR GROUP A STREP Stat LAB 02/28/17 19:30 Results PROCALCITONIN Stat LAB 02/28/17 19:06 Completed RAPID FLU A/B Stat LAB 02/28/17 19:30 Completed STREP SCREEN Stat LAB 02/28/17 19:30 Results TROPONIN I Stat LAB 02/28/17 19:06 Completed TSH [THYROID STIMULATING HORMONE] Stat LAB 02/28/17 19:06 Completed URINALYSIS C & S IF INDICATED Stat LAB 02/28/17 19:30 Completed 0.9 % Sodium Chloride [Saline Flush] MEDS 02/28/17 18:45 Ordered 1 syr IVF PRN PRN Aztreonam [Azactam] MEDS 02/28/17 19:08 Discontinued 1 gm .ROUTE .STK-MED ONE Aztreonam [Azactam] 1 gm MEDS 02/28/17 19:06 Discontinued 0.9 % Sodium Chloride [Sodium Chloride] 50 ml IV ONCE Furosemide [Lasix] MEDS 02/28/17 19:57 Discontinued 40 mg IVP ONCE STA Levofloxacin/D5w [Levaquin] 500 mg MEDS 02/28/17 19:56 Active Premix 100 ml D5w 1 bag IV ONCE Lidocaine HCl [Uro-Jet] MEDS 02/28/17 19:06 Discontinued 10 ml [id number] ONCE STA Sodium Chloride 0.9% [Sodium Chloride] 1,000 ml MEDS 02/28/17 19:12 Active IV 30 mls/hr CT CHEST W/O CONTRAST Stat RADS 02/28/17 18:[address] HEAD W/O CONTRAST Stat RADS 02/28/17 19:05 Completed Medications Generic Name Dose Route Start Last Admin Trade Name Freq PRN Reason Stop Dose Admin Sodium Chloride 1,000 mls @ 30 mls/hr 02/28/17 19:12 02/28/17 19:36 Sodium Chloride IV 03/02/17 04:31 30 mls/hr .[id number] STA Administration Levofloxacin/Dextrose 500 mg/ 100 mls @ 100 mls/hr 02/28/17 19:56 Dextrose IV 02/28/17 20:55 ONCE STA Sodium Chloride 1 syr 02/28/17 18:45 02/28/17 20:07 Saline Flush IVF 1 syr PRN PRN Administration To flush IV Discontinued Medications Generic Name Dose Route Start Last Admin Trade Name Freq PRN Reason Stop Dose Admin Furosemide 40 mg 02/28/17 19:57 02/28/17 20:08 Lasix IVP 02/28/17 19:58 40 mg ONCE STA Administration Aztreonam 1 gm/ Sodium 50 mls @ 75 mls/hr 02/28/17 19:06 02/28/17 19:36 Chloride IV 02/28/17 19:45 75 mls/hr ONCE STA Administration Lidocaine HCl 10 ml 02/28/17 19:06 02/28/17 19:40 Uro-Jet [id number] 02/28/17 19:07 Not Given ONCE STA Vital Signs: Temp Pulse Resp BP Pulse Ox 02/28/17 18:27 101.6 F H 112 H 24 183/101 H 90 L Departure - Departure Time of Disposition: 20:10 Disposition: TSF SHORT-TRM HOSP Discharge Problem: Acute exacerbation of CHF (congestive heart failure) Qualifiers: Congestive heart failure type: unspecified congestive heart failure type Qualified Code(s): I50.9 - Heart failure, unspecified Pneumonia Qualifiers: Pneumonia type: due to unspecified organism Laterality: bilateral Lung location : unspecified part of lung Qualified Code(s): J18.9 - Pneumonia, unspecified organism Condition: Stable Pt referred to PMD for follow-up: Yes Allergies/Adverse Reactions: Allergies Penicillins Adverse Reaction (Verified 02/28/17 18:32) Possible reaction, reaction unknown sulfamethoxazole [From Bactrim] Adverse Reaction (Verified 02/28/17 18:32) Dizziness trimethoprim [From Bactrim] Adverse Reaction (Verified 02/28/17 18:32) Dizziness Home Medications: Ambulatory Orders Furosemide [Lasix Tab] 20 mg PO BID 12/21/14 Insulin Lispro [Humalog] 5 unit SUBCUT TIDWM 12/21/14 Albuterol Sulfate [Proair Hfa] 2 puff IH QID #1 puff 11/23/16 Metoprolol Tartrate [Lopressor] 25 mg PO DAILY #1 02/07/16 Tiotropium Adolphus [Spiriva] 18 mcg IH DAILY #1 cap.w.dev 02/07/16 Transfer Form Completed: Yes Disposition Discussed With: Patient, Family
== END 2017-02-28 20:35 | disposition short-term general hospital (02) ==
LOC: ED 18:27
DX: I50.9 Heart failure, unspecified (principal); J18.9 Pneumonia, unspecified organism; I25.10 Atherosclerotic heart disease of native coronary artery without angina pectoris; I10 Essential (primary) hypertension; E11.9 Type 2 diabetes mellitus without complications; F17.210 Nicotine dependence, cigarettes, uncomplicated; Z79.899 Other long term (current) drug therapy
CPT/HCPCS: 36415; 80053; 81001; 82550; 82553; 82803; 83605; 83880; 84145; 84443; 84484; 85025; 87040; 87651; 87804; 87880; 93005; 93010; 96365; 96375; 99285

== ENCOUNTER 2017-04-06 21:58 | Emergency (ER) ==
[2017-04-06 22:20] VITALS: TEMP 98; BMI 28.0
[2017-04-06] MEDS ORDERED: COZAAR PO STA (22:22)
[2017-04-06] MEDS ORDERED: COZAAR ONE ×2 (22:30→22:39)
--- NOTE | 2017-04-06 22:33 | ED.PDOC ---
General ED Provider: Dr. KAIDEN ABDALLA-ER Chief Complaint: Hypertension Stated Complaint: my bp is up--i am not taking my cozaar(patient somewhat mixed up with what meds she is supposed to be taking) Time Seen by Physician: 22:10 Mode of Arrival: Walk-In Information Source: Patient Exam Limitations: No limitations Primary Care Provider: KENNY STARR Nursing and Triage Documentation Reviewed and Agree: Yes Reviewed sepsis parameters & appropriate labs ordered?: Yes System Inflammatory Response Syndrome: Not Applicable Sepsis Protocol: For patient's 13 years and over: Temp is 96.8 and below OR 101 and greater Pulse >90 BPM Resp >20/minute Acutely Altered Mental Status Are patient's symptoms suggestive of a new infection, such as: -Pneumonia -Skin, Soft Tissue -Endocarditis -UTI -Bone, Joint Infection -Implantable Device -Acute Abdominal Infection -Wound Infection -Meningitis -Blood Stream Catheter Infection -Unknown Cardiovascular Complaint Exam - Hypertension Complaint/Exam Onset/Duration: today Symptoms Are: Still present Timing: Constant Reported B/P Prior to Arrival: 170/90 Aggravating: Reports: None Alleviating: Reports: None Associated Signs and Symptoms: Denies: Chest pain, Vision changes, Anxiety, Recent stress, Headache, Numbness, Tingling, Weakness, Dizziness, Short of air, Swelling Related History: Reports: Current ARBs, Current Beta Eddi Related Surgical History: Reports: Cardiac Cath Cardiac Risk Factors: Reports: Hypertension Recent Change in Medications: Yes A/V [place]: No Papilledema Present: No JVD Present: No Carotid Bruit Present: No Differential Diagnoses: Hypertension Review of Systems - Review Of Systems Constitutional: Reports: No symptoms Eyes: Reports: No symptoms Ears, Nose, Mouth, Throat: Reports: No symptoms Respiratory: Reports: No symptoms Cardiac: Reports: No symptoms GI: Reports: No symptoms : Reports: No symptoms Musculoskeletal: Reports: No symptoms Skin: Reports: No symptoms Neurological: Reports: No symptoms Endocrine: Reports: No symptoms Hematologic/Lymphatic: Reports: No symptoms All Other Systems: Reviewed and Negative Past Medical History - Past Medical History Previously Healthy: Yes Endocrine: Reports: DM 2 Cardiovascular: Reports: Hypertension, CHF Respiratory: Reports: Bronchitis Hematological: Reports: None Gastrointestinal: Reports: None Genitourinary: Reports: None Neuro/Psych: Reports: None Musculoskeletal: Reports: Arthritis, Other Cancer: Reports: None Last Menstrual Period: 1984 hyst - Surgical History General Surgical History: Reports: Hysterectomy (1985 Hysterectomy), Orthopedic (no repair of left rotator cuff), Unknown - Family History Family History: Reports: Unknown - Social History Smoking Status: Current every day smoker, Light tobacco smoker Hx Substance Use: No Alcohol Screening: None - Immunizations Tetanus Shot up to Date: Yes Physical Exam - Physical Exam Appearance: Well-appearing, No pain distress, Well-nourished Eyes: CHOCO, EOMI, Conjunctiva clear ENT: Ears normal, Nose normal, Oropharynx normal Neck: Supple Respiratory: Airway patent Cardiovascular: RRR, Pulses normal, No rub, No murmur GI/: Soft, Nontender, No masses, Bowel sounds normal, No Organomegaly Musculoskeletal: Normal strength, ROM intact, No edema, No calf tenderness Skin: Warm, Dry, Normal color Neurological: Sensation intact, Motor intact, Reflexes intact, Cranial nerves intact, Alert, Oriented Psychiatric: Affect appropriate, Mood appropriate Re-Evaluation - Re-Evaluation Time of Re-Evaluation: 23:19 Status: Improved (bp 140/90) Vital Signs Stable: Yes Pain Level: 0 Appearance: NAD Lungs: Clear Skin: Warm and Dry Neuro: Alert and Oriented X3 CV: RRR Critical Care Note - Critical Care Note Total Time (mins): 0 Course - Course Hematology/Chemistry: 04/06/17 22:40 Orders, Labs, Meds: Lab Review 04/06/17 22:40 Sodium 142 Potassium 3.7 Chloride 104 Carbon Dioxide 27 Anion Gap 14.7 BUN 19 H Creatinine 1.08 Estimated GFR (MDRD) 63.00 BUN/Creatinine Ratio 17.59 Glucose 285 H Calcium 9.3 Orders Category Date Time Status BMP [BASIC METABOLIC PANEL] Stat LAB 04/06/17 22:40 Completed Losartan Potassium [Cozaar] MEDS 04/06/17 22:30 Discontinued 50 mg .ROUTE .STK-MED ONE Losartan Potassium [Cozaar] MEDS 04/06/17 22:39 Discontinued 50 mg .ROUTE .STK-MED ONE Losartan Potassium [Cozaar] MEDS 04/06/17 22:22 Discontinued 50 mg PO ONCE STA Medications Discontinued Medications Generic Name Dose Route Start Last Admin Trade Name Freq PRN Reason Stop Dose Admin Losartan Potassium 50 mg 04/06/17 22:22 04/06/17 22:30 Cozaar PO 04/06/17 22:23 50 mg ONCE STA Administration Vital Signs: Temp Pulse Resp BP Pulse Ox 04/06/17 23:18 140/82 04/06/17 22:05 98 F 81 20 175/99 H 94 L FRANCIS Risk Score FRANCIS Risk Score: Risk Score Odds of by 30D 0 0.1 (0.1-0.2) 1 0.3 (0.2-0.3) 2 0.4 (0.3-0.5) 3 0.7 (0.6-0.9) 4 1.2 (1.0-1.5) 5 2.2 (1.9-2.6) 6 3.0 (2.5-3.6) 7 4.8 (3.8-6.1) Departure - Departure Time of Disposition: 23:20 Disposition: HOME SELF-CARE Discharge Problem: HTN (hypertension) Qualifiers: Hypertension type: unspecified Qualified Code(s): I10 - Essential (primary) hypertension Instructions: Chronic Hypertension (ED) Condition: Good Pt referred to PMD for follow-up: Yes IPMP verified?: No Additional Instructions: restart the losartan ---come to dr ley office tomorrow for bp check Allergies/Adverse Reactions: Allergies Penicillins Adverse Reaction (Verified 02/28/17 18:32) Possible reaction, reaction unknown sulfamethoxazole [From Bactrim] Adverse Reaction (Verified 02/28/17 18:32) Dizziness trimethoprim [From Bactrim] Adverse Reaction (Verified 02/28/17 18:32) Dizziness Home Medications: Ambulatory Orders Furosemide [Lasix Tab] 20 mg PO TID 12/21/14 Insulin Lispro [Humalog] 5 unit SUBCUT TIDWM 12/21/14 Albuterol Sulfate [Proair Hfa] 2 puff IH QID #1 puff 02/07/16 Tiotropium [place] [Spiriva] 18 mcg IH DAILY #1 cap.w.dev 02/07/16 Carvedilol [Coreg] 3.125 mg PO BID 04/06/17 Losartan Potassium [Cozaar] 25 mg PO DAILY 04/06/17 Disposition Discussed With: Patient
[2017-04-06 23:18] VITALS: BP 140/82
== END 2017-04-06 23:20 | disposition home or self-care (01) ==
LOC: ED 21:58
DX: I10 Essential (primary) hypertension (principal); F17.210 Nicotine dependence, cigarettes, uncomplicated; Z79.899 Other long term (current) drug therapy
CPT/HCPCS: 36415; 80048; 99283

== ENCOUNTER 2017-12-29 18:24 | Emergency (ER) | payer OTHER ==
[2017-12-29 18:38] VITALS: BP 191/107; TEMP 96.9; BMI 29.6
[2017-12-29] MEDS ORDERED: LASIX IVP STA (18:44)
--- NOTE | 2017-12-29 19:29 | CT ---
EXAM: Noncontrast CT of the chest HISTORY: Dyspnea COMPARISON: None available. TECHNIQUE: Axial noncontrast CT of the chest with sagittal and coronal reformats. FINDINGS: There is stable-appearing enlargement of the cardiac silhouette. Atherosclerotic calcifications are present including coronary arteries. There is an aberrant right subclavian artery. A 1.6 cm pretrache al lymph node is seen, unchanged. There is limited evaluation the melchor without IV contrast. There are small bilateral pleural effusions, right greater than left. Mild bilateral interlobular sep willard thickening is seen. No focal consolidation or pneumothorax is identified. Lumbar dextrocurvature is noted. IMPRESSION: Cardiomegaly. Small right greater than left pleural effusions. Mild interstitial prominence suggesting interstitial edema. Stable enlarged mediastinal lymph node. Atherosclerosis including coronary arteries.
--- NOTE | 2017-12-29 19:35 | ED.PDOC ---
General ED Provider: Dr. KAIDEN ABDALLA-ER Chief Complaint: Shortness of Air Stated Complaint: im holding fluid--im gaining weight and my legs are swollen Time Seen by Physician: 18:30 Mode of Arrival: Walk-In Information Source: Patient Exam Limitations: No limitations Primary Care Provider: KENNY STARR Nursing and Triage Documentation Reviewed and Agree: Yes Does patient meet sepsis criteria?: No System Inflammatory Response Syndrome: Not Applicable Sepsis Protocol: For patient's 13 years and over: Temp is 96.8 and below OR 101 and greater Pulse >90 BPM Resp >20/minute Acutely Altered Mental Status Are patient's symptoms suggestive of a new infection, such as: -Pneumonia -Skin, Soft Tissue -Endocarditis -UTI -Bone, Joint Infection -Implantable Device -Acute Abdominal Infection -Wound Infection -Meningitis -Blood Stream Catheter Infection -Unknown Respiratory Complaint Exam - Shortness of Air Complaint/Exam Onset/Duration: 4 days Symptoms Are: Still present Initial Severity: Mild Current Severity: Mild Character: Reports: Dyspnea at rest, Dyspnea on exertion, Orthopnea Associated Signs and Symptoms: Reports: Calf swelling, Edema Related History: Reports: Similar episode History of Healthcare-Acquired Pneumonia: No Cardiac Risk Factors: Reports: CAD, Diabetes, Hypertension Tuberculosis Risk Factors: Reports: Diabetes Home Oxygen Use: No Recent Stress Test: No Recent Echo/LV Function: No Respiratory Distress: None Stridor Present: No Tracheal Deviation: No Subcutaneous Emphysema: No Accessory Muscle Use: No Retractions: Not Present Diminished Breath Sounds: No Prolonged Expiratory Phase: No Unable to Speak Full Sentences: No Fatigue: Yes Leg Swelling: Yes Jean Paul's Sign Present: No Grunting Respirations: No Kussmaul Respirations: No Differential Diagnoses: CHF, Pulmonary Edema Quality Indicator For Non-Traumatic Chest Pain/Syncope: EKG Performed Review of Systems - Review Of Systems Constitutional: Reports: No symptoms Eyes: Reports: No symptoms Ears, Nose, Mouth, Throat: Reports: No symptoms Respiratory: Reports: Orthopnea, Short of air Cardiac: Reports: Edema GI: Reports: No symptoms : Reports: No symptoms Musculoskeletal: Reports: No symptoms Skin: Reports: No symptoms Neurological: Reports: No symptoms Endocrine: Reports: No symptoms Hematologic/Lymphatic: Reports: No symptoms All Other Systems: Reviewed and Negative Past Medical History - Past Medical History Previously Healthy: Yes Endocrine: Reports: DM 2 Cardiovascular: Reports: Hypertension, CHF Respiratory: Reports: Bronchitis Hematological: Reports: None Gastrointestinal: Reports: None Genitourinary: Reports: None Neuro/Psych: Reports: None Musculoskeletal: Reports: Arthritis, Other Cancer: Reports: None Last Menstrual Period: unknown - Surgical History General Surgical History: Reports: Hysterectomy (1985 Hysterectomy), Orthopedic (no repair of left rotator cuff), Unknown - Family History Family History: Reports: Unknown - Social History Smoking Status: Current every day smoker, Light tobacco smoker Hx Substance Use: No Alcohol Screening: None Lives: With family - Immunizations Tetanus Shot up to Date: Yes (2016) Physical Exam - Physical Exam Appearance: Well-appearing, No pain distress, Well-nourished Eyes: CHOCO, EOMI, Conjunctiva clear ENT: Ears normal, Nose normal, Oropharynx normal Neck: Supple Respiratory: Crackles Cardiovascular: RRR, Pulses normal, No rub, No murmur GI/: Soft, Nontender, No masses, Bowel sounds normal, No Organomegaly Musculoskeletal: Normal strength, ROM intact, No edema, No calf tenderness Skin: Warm, Dry, Normal color Neurological: Sensation intact, Motor intact, Reflexes intact, Cranial nerves intact, Alert, Oriented Psychiatric: Affect appropriate, Mood appropriate Interpretation - Radiology Interpretation Radiology Interpretation By: Radiologist Radiology Results: Positive Exam Interpreted: CT Scan - EKG Interpretation Time of EKG #1: 19:37 Rate: Normal Rhythm: Sinus Ectopy: None [place]: NL ST Segment: Normal Interpretation: nsr Critical Care Note - Critical Care Note Total Time (mins): 0 Course - Course Hematology/Chemistry: 12/29/17 18:59 12/29/17 18:59 Orders, Labs, Meds: Lab Review 12/29/17 12/29/17 12/29/17 18:43 18:59 18:59 WBC 6.41 RBC 3.98 L Hgb 12.4 Hct 38.2 MCV 96.0 MCH 31.2 H MCHC 32.5 RDW Coeff of Holley 14.3 Plt Count 348 Immature Gran % (Auto) 0.3 Neut % (Auto) 57.3 Lymph % (Auto) 30.4 [place] % (Auto) 10.3 H Eos % (Auto) 1.1 Baso % (Auto) 0.6 Immature Gran # (Auto) 0.0 Neut # (Auto) 3.7 Lymph # (Auto) 2.0 [place] # (Auto) 0.7 Eos # (Auto) 0.1 Baso # (Auto) 0.0 Puncture Site Rrad O2 Saturation 93.0 L ABG pH 7.412 ABG pCO2 36.4 ABG pO2 65.0 L ABG HCO3 23.2 ABG Total CO2 24 ABG Base Excess -1 Ayad Test + FiO2 % 21.0 Sodium 137.7 Potassium 3.55 Chloride 106.6 Carbon Dioxide 29.2 Anion Gap 5.45 BUN 18.0 H Creatinine 1.11 Estimated GFR (MDRD) 61.00 BUN/Creatinine Ratio 16.21 Glucose 235.4 H Calcium 8.64 Total Bilirubin 0.99 AST 22.0 ALT 14.7 Alkaline Phosphatase 122.7 NT-Pro-B Natriuret Pep Total Protein 6.81 Albumin 3.35 L Globulin 3.46 Albumin/Globulin Ratio 0.96 12/29/17 18:59 WBC RBC Hgb Hct MCV MCH MCHC RDW Coeff of Holley Plt Count Immature Gran % (Auto) Neut % (Auto) Lymph % (Auto) [place] % (Auto) Eos % (Auto) Baso % (Auto) Immature Gran # (Auto) Neut # (Auto) Lymph # (Auto) [place] # (Auto) Eos # (Auto) Baso # (Auto) Puncture Site O2 Saturation ABG pH ABG pCO2 ABG pO2 ABG HCO3 ABG Total CO2 ABG Base Excess Ayad Test FiO2 % Sodium Potassium Chloride Carbon Dioxide Anion Gap BUN Creatinine Estimated GFR (MDRD) BUN/Creatinine Ratio Glucose Calcium Total Bilirubin AST ALT Alkaline Phosphatase NT-Pro-B Natriuret Pep 32421.000 H Total Protein Albumin Globulin Albumin/Globulin Ratio Orders Category Date Time Status ABG DRAW REQUEST Stat CARDIO 12/29/17 18:43 Completed EKG-(ED ONLY) Stat CARDIO 12/29/17 18:43 Completed Copyright Manager [ED REPLANTING MACHINE CREWMAN APPLIED] .ONCE EMERGENCY 12/29/17 18:44 Active ED IV/MEDIPORT/POWERPORT .ONCE EMERGENCY 12/29/17 18:44 Active ABG Stat LAB 12/29/17 18:43 Completed CBC W/ AUTO DIFF Stat LAB 12/29/17 18:59 Completed COMPREHENSIVE METABOLIC PANEL Stat LAB 12/29/17 18:59 Completed PRO-BNP [NT-PROBNP] Stat LAB 12/29/17 18:59 Completed 0.9 % Sodium Chloride [Saline Flush] MEDS 12/29/17 18:44 Ordered 1 syr IVF PRN PRN Furosemide [Lasix] MEDS 12/29/17 18:44 Discontinued 80 mg IVP ONCE STA CT CHEST W/O CONTRAST Stat RADS 12/29/17 18:44 Completed Medications Generic Name Dose Route Start Last Admin Trade Name Freq PRN Reason Stop Dose Admin Sodium Chloride 1 syr 12/29/17 18:44 12/29/17 19:24 Saline Flush IVF 1 syr PRN PRN Administration To flush IV Discontinued Medications Generic Name Dose Route Start Last Admin Trade Name Freq PRN Reason Stop Dose Admin Furosemide 80 mg 12/29/17 18:44 12/29/17 19:25 Lasix IVP 12/29/17 18:45 80 mg ONCE STA Administration Vital Signs: Temp Pulse Resp BP Pulse Ox 12/29/17 18:28 96.9 F L 95 H 20 191/107 H 92 L Departure - Departure Time of Disposition: 20:29 Disposition: TSF SHORT-TRM HOSP Discharge Problem: Acute exacerbation of CHF (congestive heart failure) Qualifiers: Heart failure type: unspecified Qualified Code(s): I50.9 - Heart failure, unspecified Instructions: Heart Failure (ED), Pulmonary Edema (ED) Condition: Fair Pt referred to PMD for follow-up: Yes IPMP verified?: No Allergies/Adverse Reactions: Allergies Penicillins Adverse Reaction (Verified 11/18/17 15:43) Possible reaction, reaction unknown sulfamethoxazole [From Bactrim] Adverse Reaction (Verified 11/18/17 15:43) Dizziness trimethoprim [From Bactrim] Adverse Reaction (Verified 11/18/17 15:43) Dizziness Home Medications: Ambulatory Orders Furosemide [Lasix Tab] 20 mg PO BID 12/21/14 Insulin Lispro [Humalog] 5 unit SUBCUT TIDWM 12/21/14 Tiotropium [place] [Spiriva] 18 mcg IH DAILY #1 cap.w.dev 02/07/16 Carvedilol [Coreg] 3.125 mg PO BID 04/06/17 Potassium Chloride [K-Dur] 20 meq PO DAILY 11/18/17 Albuterol Sulfate [Proair Hfa] 2 puff IH QID PRN 12/29/17 Transfer Form Completed: Yes Disposition Discussed With: Patient, Family
== END 2017-12-29 21:03 | disposition short-term general hospital (02) ==
LOC: ED 18:24
DX: I50.9 Heart failure, unspecified (principal); R06.02 Shortness of breath; I25.810 Atherosclerosis of coronary artery bypass graft(s) without angina pectoris; E11.9 Type 2 diabetes mellitus without complications; I10 Essential (primary) hypertension; R60.9 Edema, unspecified; F17.210 Nicotine dependence, cigarettes, uncomplicated; Z79.899 Other long term (current) drug therapy; Z79.4 Long term (current) use of insulin; R63.5 Abnormal weight gain; Z91.14 Patient's other noncompliance with medication regimen; I49.3 Ventricular premature depolarization
CPT/HCPCS: 36415; 80053; 82803; 83880; 85025; 93005; 93010; 96375; 99285

== ENCOUNTER 2018-05-12 08:50 | Outpatient (CLI) | payer OTHER | END 2018-05-12 09:10 | disposition short-term general hospital (02) | LOC: AMBL 08:50 | PROVIDERS: ATTEND Emergency Medicine | DX: R53.1 Weakness (principal); R29.810 Facial weakness; R47.81 Slurred speech; M54.5 Low back pain; R73.9 Hyperglycemia, unspecified ==

== ENCOUNTER 2018-09-08 22:51 | Emergency (ER) ==
[2018-09-08 23:02] VITALS: TEMP 98.1
[2018-09-08] MEDS ORDERED: CATAPRES PO STA (23:19)
[2018-09-08] MEDS ORDERED: NORVASC PO STA (23:19)
[2018-09-08] MEDS ORDERED: MORPHINE 2 MG/ML SYRINGE IM STA (23:20)
[2018-09-08] MEDS ORDERED: TRANDATE IVP STA (23:57)
[2018-09-08] MEDS ORDERED: VASOTEC IV IVP STA (23:57)
[2018-09-09] MEDS ORDERED: TRANDATE ONE (00:25)
--- NOTE | 2018-09-09 02:14 | ED.PDOC ---
General ED Provider: Dr. KAIDEN ABDALLA-ER Chief Complaint: Nosebleed Stated Complaint: my bp is up and my nose is bleeding Time Seen by Physician: 22:55 Mode of Arrival: Walk-In Information Source: Patient Exam Limitations: No limitations Primary Care Provider: KENNY STARR Nursing and Triage Documentation Reviewed and Agree: Yes Does patient meet sepsis criteria?: No System Inflammatory Response Syndrome: Not Applicable Sepsis Protocol: For patient's 13 years and over: Temp is 96.8 and below OR 101 and greater Pulse >90 BPM Resp >20/minute Acutely Altered Mental Status Are patient's symptoms suggestive of a new infection, such as: -Pneumonia -Skin, Soft Tissue -Endocarditis -UTI -Bone, Joint Infection -Implantable Device -Acute Abdominal Infection -Wound Infection -Meningitis -Blood Stream Catheter Infection -Unknown EENT Complaint Exam - Nasal Complaint/Exam Onset/Duration: tonight Symptoms Are: Still present Timing: Constant Initial Severity: Mild Current Severity: Mild Location: Left Character: Light bleeding Aggravating: Reports: Hypertension Alleviating: Reports: Pressure Associated Signs and Symptoms: Denies: Nasal congestion, Bruising, Hematuria, Hematochezia, Sinus pain, Nasal discharge, Foreign body, Abnormal coags Related History: Reports: Aspirin, Platelet inhibitors Bleeding Present At: Left nostril Foreign Body Present: No Oropharynx Findings: Active bleeding Septal Hematoma: No Differential Diagnoses: Epistaxis, Hypertension Review of Systems - Review Of Systems Constitutional: Reports: No symptoms Eyes: Reports: No symptoms Ears, Nose, Mouth, Throat: Reports: Epistaxis Respiratory: Reports: No symptoms Cardiac: Reports: No symptoms GI: Reports: No symptoms : Reports: No symptoms Musculoskeletal: Reports: No symptoms Skin: Reports: No symptoms Neurological: Reports: No symptoms Endocrine: Reports: No symptoms Hematologic/Lymphatic: Reports: No symptoms All Other Systems: Reviewed and Negative Past Medical History - Past Medical History Previously Healthy: Yes Endocrine: Reports: DM 2 Cardiovascular: Reports: Hypertension, CHF Respiratory: Reports: Bronchitis Hematological: Reports: None Gastrointestinal: Reports: None Genitourinary: Reports: None Neuro/Psych: Reports: None Musculoskeletal: Reports: Arthritis, Other Cancer: Reports: None Last Menstrual Period: PT HAS HAD A HYSTERECTOMY - Surgical History General Surgical History: Reports: Hysterectomy (1985 Hysterectomy), Orthopedic (no repair of left rotator cuff), Unknown - Family History Family History: Reports: Unknown - Social History Smoking Status: Former smoker Hx Substance Use: No Alcohol Screening: None Physical Exam - Physical Exam Appearance: Well-appearing Eyes: CHOCO ENT: Epistaxis Neck: Supple Respiratory: Airway patent Cardiovascular: RRR GI/: Soft Musculoskeletal: Normal strength Skin: Warm, Dry, Normal color Neurological: Sensation intact, Motor intact, Reflexes intact, Cranial nerves intact, Alert, Oriented Psychiatric: Affect appropriate, Mood appropriate, Anxious Re-Evaluation - Re-Evaluation Time of Re-Evaluation: 02:14 Status: Improved Vital Signs Stable: Yes (bp 126/70--no epistaxis) Pain Level: 0 Appearance: NAD Lungs: Clear Skin: Warm and Dry Neuro: Alert and Oriented X3 CV: RRR Critical Care Note - Critical Care Note Total Time (mins): 30 Course - Course Orders, Labs, Meds: Orders Category Date Time Status Mushroom Growing Supervisor [ED STABILIZER OPERATOR APPLIED] .ONCE EMERGENCY 09/08/18 23:40 Active ED IV/MEDIPORT/POWERPORT .ONCE EMERGENCY 09/08/18 23:57 Active 0.9 % Sodium Chloride [Saline Flush] MEDS 09/08/18 23:57 Ordered 1 syr IVF PRN PRN Amlodipine Besylate [Norvasc] MEDS 09/08/18 23:19 Discontinued 5 mg PO ONCE STA Clonidine HCl [Catapres] MEDS 09/08/18 23:19 Discontinued 0.1 mg PO ONCE STA Enalaprilat Dihydrate [Vasotec IV] MEDS 09/08/18 23:57 Discontinued 5 mg IVP ONCE STA Labetalol HCl [Trandate] MEDS 09/08/18 23:57 Discontinued 20 mg IVP ONCE STA Labetalol HCl [Trandate] MEDS 09/09/18 00:25 Discontinued 5 mg .ROUTE .STK-MED ONE Morphine Sulfate [Morphine 2 mg/ml Syringe] MEDS 09/08/18 23:20 Discontinued 2 mg IM ONCE STA Medications Generic Name Dose Route Start Last Admin Trade Name Freq PRN Reason Stop Dose Admin Sodium Chloride 1 syr 09/08/18 23:57 09/09/18 00:37 Saline Flush IVF 1 syr PRN PRN Administration To flush IV Discontinued Medications Generic Name Dose Route Start Last Admin Trade Name Freq PRN Reason Stop Dose Admin Amlodipine Besylate 5 mg 09/08/18 23:19 09/08/18 23:35 Norvasc PO 09/08/18 23:20 5 mg ONCE STA Administration Clonidine 0.1 mg 09/08/18 23:19 09/08/18 23:34 Catapres PO 09/08/18 23:20 0.1 mg ONCE STA Administration Enalaprilat 5 mg 09/08/18 23:57 09/09/18 00:41 Vasotec Iv IVP 09/08/18 23:58 5 mg ONCE STA Administration Labetalol HCl 20 mg 09/08/18 23:57 09/09/18 00:46 Trandate IVP 09/08/18 23:58 Not Given ONCE STA Morphine Sulfate 2 mg 09/08/18 23:20 09/08/18 23:45 Morphine 2 Mg/Ml Syringe IM 09/08/18 23:21 2 mg ONCE STA Administration Vital Signs: Temp Pulse Resp BP Pulse Ox 09/08/18 22:51 98.1 F 90 18 176/84 H 98 Departure - Departure Time of Disposition: 02:14 Disposition: HOME SELF-CARE Discharge Problem: Epistaxis Hypertension Qualifiers: Hypertension type: essential hypertension Qualified Code(s): I10 - Essential ( primary) hypertension Instructions: Chronic Hypertension (ED) Condition: Good Pt referred to PMD for follow-up: Yes IPMP verified?: No Additional Instructions: increase norvasc to 5mg daily --monitor bp and f/u with pcp Allergies/Adverse Reactions: Allergies Penicillins Adverse Reaction (Verified 09/08/18 23:02) Possible reaction, reaction unknown sulfamethoxazole [From Bactrim] Adverse Reaction (Verified 09/08/18 23:02) Dizziness trimethoprim [From Bactrim] Adverse Reaction (Verified 09/08/18 23:02) Dizziness Home Medications: Ambulatory Orders Furosemide [Lasix Tab] 20 mg PO DAILY 12/21/14 Insulin Lispro [Humalog] 5 unit SUBCUT TIDWM 12/21/14 Tiotropium [place] [Spiriva] 18 mcg IH DAILY #1 cap.w.dev 02/07/16 Carvedilol [Coreg] 3.125 mg PO BID 04/06/17 Albuterol Sulfate [Proair Hfa] 2 puff IH QID PRN 12/29/17 Amlodipine Besylate [Norvasc] 2.5 mg PO DAILY 09/08/18 Aspirin [Aspirin EC] 81 mg PO DAILY 09/08/18 Clonidine HCl 0.1 mg PO TID 09/08/18 Clopidogrel Bisulfate [Plavix] 75 mg PO DAILY 09/08/18 Cyanocobalamin (Vitamin B-12) [Vitamin B-12] 1,000 mcg PO DAILY 09/08/18 Losartan Potassium [Cozaar] 25 mg PO DAILY 09/08/18 Spironolactone [Aldactone] 25 mg PO DAILY PRN 09/08/18 Disposition Discussed With: Patient
[2018-09-09 02:35] VITALS: BP 125/71
== END 2018-09-09 02:27 | disposition home or self-care (01) ==
LOC: ED 22:51
DX: R04.0 Epistaxis (principal); I10 Essential (primary) hypertension; Z79.899 Other long term (current) drug therapy
CPT/HCPCS: 96372; 96374; 96375; 99283

== ENCOUNTER 2021-05-31 01:51 | Inpatient (IN) ==
[2021-05-31] MEDS ORDERED: SOLU-MEDROL 125 MG IVP STA ×2 (01:53→02:04)
[2021-05-31] MEDS ORDERED: LASIX ONE (01:54)
[2021-05-31] MEDS ORDERED: URO-JET MUCOUSMEMB STA (02:04)
[2021-05-31] MEDS ORDERED: LASIX IVP ONE ×2 (02:04→02:42)
[2021-05-31] MEDS ORDERED: DUONEB NEB STA (02:04)
[2021-05-31 02:24] LABS: BORDETELLA PARAPERTUSSIS (PCR) NOT DETECTED (NOT DETECT); BORDETELLA PERTUSSIS (PCR) NOT DETECTED (NOT DETECT); CHLAMYDIA PNEUMONIAE (PCR) NOT DETECTED (NOT DETECT); CORONAVIRUS 229E (PCR) NOT DETECTED (NOT DETECT); CORONAVIRUS HKU1 (PCR) NOT DETECTED (NOT DETECT); CORONAVIRUS NL63 (PCR) NOT DETECTED (NOT DETECT); CORONAVIRUS OC43 (PCR) NOT DETECTED (NOT DETECT); HUMAN METAPNEUMOVIRUS (PCR) NOT DETECTED (NOT DETECT); HUMAN RHINOVIRUS/ENTEROV (PCR) NOT DETECTED (NOT DETECT); INFLUENZA B (PCR) NOT DETECTED (NOT DETECT); MYCOPLASMA PNEUMONIAE (PCR) NOT DETECTED (NOT DETECT); PARAINFLUENZA VIRUS 1 (PCR) NOT DETECTED (NOT DETECT); PARAINFLUENZA VIRUS 2 (PCR) NOT DETECTED (NOT DETECT); PARAINFLUENZA VIRUS 3 (PCR) NOT DETECTED (NOT DETECT); PARAINFLUENZA VIRUS 4 (PCR) NOT DETECTED (NOT DETECT); RESPIRATORY SYNCYTIAL V (PCR) NOT DETECTED (NOT DETECT)
--- NOTE | 2021-05-31 02:26 | ED.PDOC ---
General ED Provider: Dr. DEDRA WILKERSON Chief Complaint: Respiratory Complaint Stated Complaint: Patient woke up short of breath called EMS. when EMS got there she was talking but wheezing. Then she became apneic and needed to be bagged while in the ambulance . She was started on a breathing treatment en route. She then started waking up and feeling better. Time Seen by Provider: 05/31/21 02:03 Mode of Arrival: Ambulance Information Source: Patient and EMT Primary Care Provider: KENNY LINDER Nursing and Triage Documentation Reviewed and Agree: Yes Does patient meet sepsis criteria?: No System Inflammatory Response Syndrome: Pulse >90 BPM Sepsis Protocol: For patient's 13 years and over: Temp is 96.8 and below OR 101 and greater Pulse >90 BPM Resp >20/minute Acutely Altered Mental Status Are patient's symptoms suggestive of a new infection, such as: -Pneumonia -Skin, Soft Tissue -Endocarditis -UTI -Bone, Joint Infection -Implantable Device -Acute Abdominal Infection -Wound Infection -Meningitis -Blood Stream Catheter Infection -Unknown Review of Systems Review Of Systems Constitutional: Reports No symptoms Eyes: Reports No symptoms Ears, Nose, Mouth, Throat: Reports No symptoms Respiratory: Reports Cough, Short of air and Wheezing Cardiac: Reports Edema; Denies Chest pain GI: Reports No symptoms : Reports No symptoms Musculoskeletal: Reports No symptoms Skin: Reports No symptoms Neurological: Reports Anxiety Endocrine: Reports No symptoms Hematologic/Lymphatic: Reports No symptoms All Other Systems: Reviewed and Negative [facility] Medical History (Updated 05/31/21 @ 03:36 by DEDRA WILKERSON MD) Chronic renal failure, stage 4 (severe) Diabetes mellitus Family History Mother Type 1 diabetes mellitus, Onset Age: 50 Social History Smoking and tobacco status: Current every day smoker Surgical History History of section Status post hysterectomy Female Reproductive History Menstrual Hx Hysterectomy: Yes Hx Tubal Ligation: No Physical Exam Physical Exam Appearance: Reports Ill-appearing Ill-appearing: Severe Pain Distress: None Eyes: Reports Conjunctiva clear ENT: Reports Nose normal and Oropharynx normal Neck: Supple Respiratory: Reports Airway patent, Rhonchi, Wheezes and Retractions Cardiovascular: Reports RRR and Pulses normal GI/: Reports Soft Musculoskeletal: Reports Normal strength and ROM intact Skin: Reports Warm and Dry Neurological: Reports Motor intact, Alert and Oriented Psychiatric: Reports Anxious Interpretation Radiology Interpretation Radiology Interpretation By: Radiologist (Bilateral infiltrates consistent with infection versus edema. 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 Time of Notification: 03:03 (no telemetery bed available, No ICU either.) Admit To: Inpatient Comments: Call Dr Linder back as the patient would not want to be transported anywhere else. Dr Linder states patient to be admitted to Hospitalist. Critical Care Note Critical Care Note Total Critical Care Time (mins): 55 Course Course Hematology/Chemistry: 05/31/21 02:22 03 02:22 Orders, Labs, Meds: Lab Review 05/31/21 05/31/21 05/31/21 02:04 02:22 02:22 WBC 14.04 H RBC 3.59 L Hgb 10.4 L Hct 33.3 L MCV 92.8 MCH 29.0 MCHC 31.2 L RDW Coeff of Holley 13.6 Plt Count 437 Immature Gran % (Auto) 1.2 Neut % (Auto) 38.2 L Lymph % (Auto) 48.1 [place] % (Auto) 9.9 Eos % (Auto) 1.7 Baso % (Auto) 0.9 Neut # (Auto) 5.4 Lymph # (Auto) 6.8 H [place] # (Auto) 1.4 Eos # (Auto) 0.2 Baso # (Auto) 0.1 Immature Gran # (Auto) 0.2 Puncture Site Lbrach Base Excess -4.8 L O2 Saturation 85.7 L ABG pH 7.33 L ABG pCO2 40.0 ABG pO2 55.0 L* ABG HCO3 21.1 ABG Total CO2 22.3 Ayad Test + Hemoglobin 1.5 Oxyhemoglobin 85.3 L Carboxyhemoglobin 1.8 H Total Hemoglobin 10.5 L O2 Delivery Device nc Oxygen Liter Flow 4.50 Sodium Potassium Chloride Carbon Dioxide Anion Gap BUN Creatinine Estimated GFR (MDRD) BUN/Creatinine Ratio Glucose Lactic Acid Calcium Total Bilirubin AST ALT Alkaline Phosphatase Total Creatine Kinase Troponin I NT-Pro-B Natriuret Pep Total Protein Albumin Globulin Albumin/Globulin Ratio Procalcitonin Adenovirus (PCR) Not detected B. pertussis DNA (PCR) Not detected B.parapertussis DNA PCR Not detected C. pneumoniae DNA (PCR) Not detected Coronavirus OC43 (PCR) Not detected Coronavirus HKU1 (PCR) Not detected Coronavirus 229E (PCR) Not detected Coronavirus NL63 (PCR) Not detected Human Metapneumovir PCR Not detected Influenza Type A (PCR) Not detected Influenza B (RT-PCR) Not detected M. pneumoniae (PCR) Not detected Parainfluenza 1 (PCR) Not detected Parainfluenza 2 (PCR) Not detected Parainfluenza 3 (PCR) Not detected Parainfluenza 4 (PCR) Not detected RSV (PCR) Not detected Entero/Rhino (PCR) Not detected SARS-CoV-2 (PCR) Detected H 05/31/21 05/31/21 05/31/21 02:22 02:22 02:22 WBC RBC Hgb Hct MCV MCH MCHC RDW Coeff of Holley Plt Count Immature Gran % (Auto) Neut % (Auto) Lymph % (Auto) [place] % (Auto) Eos % (Auto) Baso % (Auto) Neut # (Auto) Lymph # (Auto) [place] # (Auto) Eos # (Auto) Baso # (Auto) Immature Gran # (Auto) Puncture Site Base Excess O2 Saturation ABG pH ABG pCO2 ABG pO2 ABG HCO3 ABG Total CO2 Ayad Test Hemoglobin Oxyhemoglobin Carboxyhemoglobin Total Hemoglobin O2 Delivery Device Oxygen Liter Flow Sodium 136.6 Potassium 3.63 Chloride 106.2 Carbon Dioxide 19.5 L Anion Gap 14.53 BUN 43.5 H Creatinine 3.08 H Estimated GFR (MDRD) 19.00 BUN/Creatinine Ratio 14.12 Glucose 499.3 H Lactic Acid 2.62 H Calcium 8.69 Total Bilirubin 0.60 AST 26.6 ALT 16.2 Alkaline Phosphatase 110.0 Total Creatine Kinase 73.4 Troponin I 0.027 NT-Pro-B Natriuret Pep Total Protein 7.48 Albumin 4.08 Globulin 3.40 Albumin/Globulin Ratio 1.20 Procalcitonin < 0.05 Adenovirus (PCR) B. pertussis DNA (PCR) B.parapertussis DNA PCR C. pneumoniae DNA (PCR) Coronavirus OC43 (PCR) Coronavirus HKU1 (PCR) Coronavirus 229E (PCR) Coronavirus NL63 (PCR) Human Metapneumovir PCR Influenza Type A (PCR) Influenza B (RT-PCR) M. pneumoniae (PCR) Parainfluenza 1 (PCR) Parainfluenza 2 (PCR) Parainfluenza 3 (PCR) Parainfluenza 4 (PCR) RSV (PCR) Entero/Rhino (PCR) SARS-CoV-2 (PCR) 05/31/21 02:22 WBC RBC Hgb Hct MCV MCH MCHC RDW Coeff of Holley Plt Count Immature Gran % (Auto) Neut % (Auto) Lymph % (Auto) [place] % (Auto) Eos % (Auto) Baso % (Auto) Neut # (Auto) Lymph # (Auto) [place] # (Auto) Eos # (Auto) Baso # (Auto) Immature Gran # (Auto) Puncture Site Base Excess O2 Saturation ABG pH ABG pCO2 ABG pO2 ABG HCO3 ABG Total CO2 Ayad Test Hemoglobin Oxyhemoglobin Carboxyhemoglobin Total Hemoglobin O2 Delivery Device Oxygen Liter Flow Sodium Potassium Chloride Carbon Dioxide Anion Gap BUN Creatinine Estimated GFR (MDRD) BUN/Creatinine Ratio Glucose Lactic Acid Calcium Total Bilirubin AST ALT Alkaline Phosphatase Total Creatine Kinase Troponin I NT-Pro-B Natriuret Pep 4330.000 H Total Protein Albumin Globulin Albumin/Globulin Ratio Procalcitonin Adenovirus (PCR) B. pertussis DNA (PCR) B.parapertussis DNA PCR C. pneumoniae DNA (PCR) Coronavirus OC43 (PCR) Coronavirus HKU1 (PCR) Coronavirus 229E (PCR) Coronavirus NL63 (PCR) Human Metapneumovir PCR Influenza Type A (PCR) Influenza B (RT-PCR) M. pneumoniae (PCR) Parainfluenza 1 (PCR) Parainfluenza 2 (PCR) Parainfluenza 3 (PCR) Parainfluenza 4 (PCR) RSV (PCR) Entero/Rhino (PCR) SARS-CoV-2 (PCR) Orders Category Date Time Status ABG DRAW REQUEST Stat CARDIO 05/31/21 02:04 Completed EKG-(ED ONLY) Stat CARDIO 05/31/21 02:04 Completed NEBULIZER TREATMENT Stat CARDIO 05/31/21 02:05 Completed ACTIVITY .Up in Chair CARE 05/31/21 03:11 Active BLOOD GLUCOSE MONITORING (MED/SURG) 0630,1100,1700,2100 CARE 05/31/21 03:16 Active GIVE HS SNACK 2100 CARE 05/31/21 03:14 Active INTAKE & OUTPUT Q8HR CARE 05/31/21 03:12 Active VITAL SIGNS Q4HR CARE 05/31/21 03:14 Active 2 GRAM SODIUM DIET DIETARY 05/31/21 Breakfast Ordered ADA 1800 LOWELL. DIET DIETARY 05/31/21 Breakfast Ordered HS SNACK DIETARY 05/31/21 Dinner Ordered ED DATA SERVICES DEVELOPER APPLIED .ONCE EMERGENCY 05/31/21 02:04 Active ED IV/MEDIPORT/POWERPORT .ONCE EMERGENCY 05/31/21 02:04 Active Pederson [ED CATHETER INSERTION AND CARE] .ONCE EMERGENCY 05/31/21 02:04 Active ABG COOX Stat LAB 05/31/21 02:04 Completed BASIC METABOLIC PANEL DAILY@0600 LAB 05/31/21 06:00 Ordered BASIC METABOLIC PANEL DAILY@0600 LAB 06/01/21 06:00 Ordered BLOOD CULTURE (ED ONLY) Stat LAB 05/31/21 Ordered BNP [NT-PROBNP] Stat LAB 05/31/21 02:22 Completed CBC W/ AUTO DIFF DAILY@0600 LAB 05/31/21 06:00 Ordered CBC W/ AUTO DIFF DAILY@0600 LAB 06/01/21 06:00 Ordered CBC W/ AUTO DIFF Stat LAB 05/31/21 02:22 Completed COMPREHENSIVE METABOLIC PANEL Stat LAB 05/31/21 02:22 Completed CREATINE KINASE Q8H LAB 05/31/21 09:15 Ordered CREATINE KINASE Q8H LAB 05/31/21 17:15 Ordered CREATINE KINASE Stat LAB 05/31/21 02:22 Completed LACTIC ACID Stat LAB 05/31/21 02:22 Completed PROCALCITONIN Stat LAB 05/31/21 02:22 Completed RESPIRATORY PANEL 2.1 (PCR) Stat LAB 05/31/21 02:22 Completed TROPONIN I Q8H LAB 05/31/21 09:15 Ordered TROPONIN I Q8H LAB 05/31/21 17:15 Ordered TROPONIN I Stat LAB 05/31/21 02:22 Completed 0.9 % Sodium Chloride [Saline Flush] MEDS 05/31/21 02:04 Active 1 syr IVF PRN PRN Azithromycin [Zithromax] MEDS 05/31/21 03:17 Discontinued 500 mg PO ONCE STA Ceftriaxone/D5w 1 gm Premix [Rocephin 1 gm/50 ml D5w] MEDS 05/31/21 09:00 Ordered 1 gm in 50 ml IV DAILY Ceftriaxone/D5w 1 gm Premix [Rocephin 1 gm/50 ml D5w] MEDS 05/31/21 02:42 Discontinued 1 gm in 50 ml IV ONCE Furosemide [Lasix] MEDS 05/31/21 01:54 Discontinued 20 mg .ROUTE .STK-MED ONE Furosemide [Lasix] MEDS 05/31/21 02:04 Discontinued 20 mg IVP ONCE ONE Furosemide [Lasix] MEDS 05/31/21 02:42 Discontinued 20 mg IVP ONCE ONE Insulin Regular, Human [Humulin R] MEDS 05/31/21 02:36 Discontinued 10 unit SUBCUT ONCE STA Ipratropium/Albuterol Neb [Duoneb] MEDS 05/31/21 02:04 Discontinued 3 ml NEB ONCE STA Ipratropium/Albuterol Neb [Duoneb] MEDS 05/31/21 06:00 Ordered 3 ml NEB RTQID Lidocaine (Uro-Jet) [Uro-Jet] MEDS 05/31/21 02:04 Discontinued 10 ml MUCOUSMEMB ONCE STA Methylprednisolone Sod Succ/Pf [Solu-Medrol 125 mg] MEDS 05/31/21 01:53 Discontinued 125 mg IVP ONCE STA Ondansetron HCl/Pf [Zofran 4 mg/2 ml] MEDS 05/31/21 03:11 Ordered 4 mg IVP Q6H PRN RESUSCITATION STATUS Routine OTHERS 05/31/21 03:11 Ordered CHEST, 1V AP ONLY Stat RADS 05/31/21 02:03 Completed Medications Generic Name Dose Route Start Last Admin Trade Name Freq PRN Reason Stop Dose Admin Hydrocodone Bitart/Acetaminophen 1 tab 05/31/21 03:20 Hydrocodone Bit/Acetaminophen 5/325 Mg Tablet PO Q6H PRN Severe Pain Albuterol/Ipratropium 3 ml 05/31/21 06:00 Ipratropium/Albuterol Vial.Neb NEB RTQID [facility] Amlodipine Besylate 2.5 mg 05/31/21 09:00 Amlodipine Besylate 5 Mg Tablet PO DAILY [facility] Apixaban 5 mg 05/31/21 09:00 Apixaban 5 Mg Tab PO BID [facility] Aspirin 81 mg 05/31/21 09:00 Aspirin 81 Mg Tablet.Dr PO DAILY [facility] Carvedilol 3.125 mg 05/31/21 09:00 Carvedilol 3.125 Mg Tablet PO BID [facility] Cholecalciferol unit 05/31/21 09:00 Cholecalciferol (Vitamin D3) 1,000 Unit (25 Mcg) Tablet PO DAILY [facility] Clonidine 0.1 mg 05/31/21 09:00 Clonidine Hcl 0.1 Mg Tablet PO BID [facility] Furosemide 20 mg 05/31/21 06:30 Furosemide Inj 20 Mg/2 Ml Vial IVP BIDAC [facility] CEFTRIAXONE/D5W 1 GM PREMIX 1 gm in 50 mls @ 75 mls/hr 05/31/21 09:00 Rocephin 1 Gm/50 Ml D5w IV 06/03/21 08:59 DAILY [facility] Insulin Glargine 24 unit 05/31/21 09:00 Insulin Glargine,Hum.Rec.Anlog 100 Units/Ml SUBCUT DAILY [facility] Insulin Human Lispro 1 unit 05/31/21 08:30 Insulin Lispro 100 Unit/Ml (3 Ml) Vial SUBCUT TIDWM [facility] Insulin Human Regular 0 unit 05/31/21 03:25 Insulin Regular, Human 100 Unit/Ml (3ml) Vial SUBCUT PRN PRN Hyperglycemia Protocol Linagliptin 5 mg 05/31/21 09:00 Linagliptin 5 Mg Tablet PO DAILY [facility] Losartan Potassium 25 mg 05/31/21 09:00 Losartan Potassium 25 Mg Tablet PO DAILY [facility] Ondansetron HCl 4 mg 05/31/21 03:11 Ondansetron Hcl/Pf 4 Mg/2 Ml Sdv IVP Q6H PRN Nausea / Vomiting Pravastatin Sodium 10 mg 05/31/21 09:00 Pravastatin Sodium 20 Mg Tablet PO DAILY [facility] Sodium Chloride 1 syr 05/31/21 02:04 0.9% Sodium Chloride 10 Ml Disp.Syrin IVF PRN PRN To flush IV Discontinued Medications Generic Name Dose Route Start Last Admin Trade Name Freq PRN Reason Stop Dose Admin Albuterol/Ipratropium 3 ml 05/31/21 02:04 05/31/21 02:00 Ipratropium/Albuterol Vial.Neb NEB 05/31/21 02:05 3 ml ONCE STA Administration Azithromycin 500 mg 05/31/21 03:17 Azithromycin 250 Mg Tablet PO 05/31/21 03:18 ONCE STA Furosemide 20 mg 05/31/21 02:04 05/31/21 02:08 Furosemide Inj 20 Mg/2 Ml Vial IVP 05/31/21 02:05 Not Given ONCE ONE Furosemide 20 mg 05/31/21 02:42 05/31/21 02:55 Furosemide Inj 20 Mg/2 Ml Vial IVP 05/31/21 02:43 20 mg ONCE ONE Administration CEFTRIAXONE/D5W 1 GM PREMIX 1 gm in 50 mls @ 75 mls/hr 05/31/21 02:42 05/31/21 03:12 Rocephin 1 Gm/50 Ml D5w IV 05/31/21 03:21 75 mls/hr ONCE STA Administration Insulin Human Regular 10 unit 05/31/21 02:36 05/31/21 02:42 Insulin Regular, Human 100 Unit/Ml (3ml) Vial SUBCUT 05/31/21 02:37 10 unit ONCE STA Administration Lidocaine HCl 10 ml 05/31/21 02:04 05/31/21 02:08 Lidocaine 10 Ml Jel.Pf.Janette (Urojet) MUCOUSMEMB 05/31/21 02:05 Not Given ONCE STA Methylprednisolone Sodium Succinate 125 mg 05/31/21 01:53 05/31/21 01:53 Methylprednisolone Sod Succ/Pf 125 Mg/2 Ml Vial IVP 05/31/21 01:54 125 mg ONCE STA Administration Vital Signs: Temp Pulse Resp BP Pulse Ox 05/31/21 01:50 98.0 F 96 H 28 H 215/100 H 93 L Discharge Plan Discharge Patient Disposition: TSF SHORT-TRM HOSP Discharge Problem: Acute exacerbation of CHF (congestive heart failure), Hypoxemia, Chronic progressive renal failure, stage 4 (severe), Community acquired bacterial pneumonia ED Provider: DEDRA WILKERSON Condition: Fair Physician Progress Note: []
[2021-05-31 02:28] LABS: ALANINE AMINOTRANSFERASE 16.2 U/L (0-35); ALBUMIN 4.08 g/dL (3.5-5.0); ASPARTATE AMINO TRANSFERASE 26.6 U/L (14-36); BILIRUBIN,TOTAL 0.6 mg/dL (0.2-1.3); BLOOD UREA NITROGEN 43.5 mg/dL (7-17); CALCIUM 8.69 mg/dL (8.4-10.2); CARBON DIOXIDE 19.5 mmol/L (22-30.0); CHLORIDE 106.2 mmol/L (98-107); CREATINE KINASE 73.4 U/L (30-135); CREATININE 3.08 mg/dL (0.60-1.30); GLUCOSE 499.3 mg/dL (74-106); POTASSIUM 3.63 mmol/L (3.5-5.1); SODIUM 136.6 mmol/L (134.5-145); TOTAL PROTEIN 7.48 g/dL (6.3-8.2)
--- NOTE | 2021-05-31 02:31 | DI ---
EXAM: AP chest. HISTORY: Shortness of breath. FINDINGS: Comparison made with Chest x-ray of 12/05/2018. The bones are unremarkable. The cardiac s ilhouette is enlarged. There are bilateral infiltrates. There is minimal right lower lobe consolida tion. There is skin fold artifact projecting over the lung bases. Impression: Bilateral infiltrates consistent with infection versus edema. Minimal right lower lobe consolidation consistent with atelectasis and/or pneumonia. Cardiomegaly.
[2021-05-31] MEDS ORDERED: HUMULIN R SUBCUT STA (02:36)
[2021-05-31 02:39] LABS: BASOPHILS # (AUTO) 0.1 K/uL (0-0.2); BASOPHILS % (AUTO) 0.9 % (0.0-3.0); EOSINOPHILS # (AUTO) 0.2 K/ul (0.0-0.7); EOSINOPHILS % (AUTO) 1.7 % (0.0-7.0); HEMATOCRIT 33.3 % (37.0-47.0); HEMOGLOBIN 10.4 g/dl (12.0-16.0); IMMATURE GRANULOCYTE # (AUTO) 0.2 (0.0-1.0); IMMATURE GRANULOCYTE % (AUTO) 1.2 % (0.0-5.0); LYMPHOCYTES # (AUTO) 6.8 K/uL (0.60-3.4); LYMPHOCYTES % (AUTO) 48.1 (10.0-50.0); MEAN CORPUSCULAR HGB CONC 31.2 (31.8-35.4); MEAN CORPUSCULAR VOLUME 92.8 fl (81.0-99.0); MONOCYTES # (AUTO) 1.4 K/uL (0.4-2.0); MONOCYTES % (AUTO) 9.9 (0-10); NEUTROPHILS # (AUTO) 5.4 K/ul (2.0-6.9); NEUTROPHILS % (AUTO) 38.2 % (42.2-75.2); PLATELET COUNT 437 10^3/uL (140-440); RDW COEFFICIENT OF VARIATION 13.6 % (11.6-14.8); RED BLOOD COUNT 3.59 10^6/ul (4.20-5.40); WHITE BLOOD COUNT 14.04 K/ul (4.6-10.2)
[2021-05-31 02:40] LABS: TROPONIN I 0.027 ng/ml (0.0000-0.120)
[2021-05-31] MEDS ORDERED: ROCEPHIN 1 GM/50 ML D5W 1 GM/50 ML BAG IV STA (02:42)
[2021-05-31 03:02] LABS: ADENOVIRUS (PCR) NOT DETECTED (NOT DETECT); SARS_COV_2 (PCR) DETECTED (NOT DETECT)
[2021-05-31 03:10] LABS: ABG PH 7.33 (7.35-7.45)
[2021-05-31 03:11] LABS: BEecf -4.8 (-2.0-3.0); COHb 1.8 (0.5-1.5); HCO3 21.1 (21-28); MetHb 1.5 (0-1.5); TCO2 22.3 (19-24); sO2 85.7 % (94-98)
[2021-05-31] MEDS ORDERED: ZOFRAN 4 MG/2 ML IVP PRN (03:11)
[2021-05-31 03:12] LABS: ABG O2 HGB 85.3 % (95-100); tHb 10.5 g/dl (11.7-17.4)
[2021-05-31] MEDS ORDERED: ZITHROMAX PO STA (03:17)
[2021-05-31] MEDS ORDERED: NORCO 5-325 PO PRN (03:20)
[2021-05-31 04:11] VITALS: BMI 31.5
[2021-05-31 05:37] LABS: BASOPHILS # (AUTO) 0.1 K/uL (0-0.2); BASOPHILS % (AUTO) 0.4 % (0.0-3.0); EOSINOPHILS % (AUTO) 0.1 % (0.0-7.0); HEMATOCRIT 32.7 % (37.0-47.0); HEMOGLOBIN 10.4 g/dl (12.0-16.0); IMMATURE GRANULOCYTE # (AUTO) 0.1 (0.0-1.0); IMMATURE GRANULOCYTE % (AUTO) 0.9 % (0.0-5.0); LYMPHOCYTES # (AUTO) 0.9 K/uL (0.60-3.4); LYMPHOCYTES % (AUTO) 7.6 (10.0-50.0); MEAN CORPUSCULAR HGB CONC 31.8 (31.8-35.4); MEAN CORPUSCULAR VOLUME 91.1 fl (81.0-99.0); MONOCYTES # (AUTO) 0.2 K/uL (0.4-2.0); MONOCYTES % (AUTO) 1.5 (0-10); NEUTROPHILS # (AUTO) 10.4 K/ul (2.0-6.9); NEUTROPHILS % (AUTO) 89.5 % (42.2-75.2); PLATELET COUNT 380 10^3/uL (140-440); RDW COEFFICIENT OF VARIATION 13.4 % (11.6-14.8); RED BLOOD COUNT 3.59 10^6/ul (4.20-5.40); WHITE BLOOD COUNT 11.63 K/ul (4.6-10.2)
[2021-05-31] MEDS: DUONEB NEB SCH ×4 (05:40→20:10)
[2021-05-31] MEDS: LASIX IVP SCH ×2 (05:50→16:30)
[2021-05-31 06:01] LABS: BLOOD UREA NITROGEN 44.9 mg/dL (7-17); CALCIUM 8.73 mg/dL (8.4-10.2); CARBON DIOXIDE 21.4 mmol/L (22-30.0); CHLORIDE 104.1 mmol/L (98-107); CREATININE 3.05 mg/dL (0.60-1.30); GLUCOSE 439.2 mg/dL (74-106); POTASSIUM 4.18 mmol/L (3.5-5.1); SODIUM 136.4 mmol/L (134.5-145)
[2021-05-31] MEDS: HUMULIN R SUBCUT PRN ×3 (06:26→18:16)
[2021-05-31] MEDS: NORVASC PO SCH (08:13)
[2021-05-31] MEDS: VITAMIN D PO SCH (08:13)
[2021-05-31] MEDS: CATAPRES PO SCH ×2 (08:13→20:48)
[2021-05-31] MEDS: COZAAR PO SCH (08:13)
[2021-05-31] MEDS: TRADJENTA PO SCH (08:13)
[2021-05-31] MEDS: PRAVACHOL PO SCH (08:14)
[2021-05-31] MEDS: ELIQUIS PO SCH ×2 (08:16→20:46)
[2021-05-31] MEDS: LANTUS SUBCUT SCH ×3 (08:18→20:44)
[2021-05-31] MEDS ORDERED: HUMALOG SUBCUT SCH (08:30)
[2021-05-31] MEDS ORDERED: COREG PO SCH (09:00)
[2021-05-31] MEDS ORDERED: ASPIRIN EC PO SCH (09:00)
[2021-05-31 09:45] LABS: TROPONIN I 0.099 ng/ml (0.0000-0.120)
[2021-05-31] MEDS: HUMALOG SUBCUT SCH ×2 (11:53→18:17)
[2021-05-31] MEDS: COREG PO SCH ×2 (16:30→16:47)
[2021-05-31 17:14] LABS: CREATINE KINASE 52.8 U/L (30-135)
[2021-05-31 17:27] LABS: TROPONIN I 0.105 ng/ml (0.0000-0.120)
--- NOTE | 2021-05-31 20:41 | PCM.PROG ---
Date Seen by Provider: 05/31/21 Time Seen by Provider: 09:00 Subjective: Date of admit - 05/30/21 She is better, still with some YOUNG, no pain. Objective: Vitals: T=98.4 F, P=74, R=22, JF=779/84, SPO2=96 HEENT: [wnl] Neck: [wnl] Lungs: [clear] CVS: [RRR] Abdomen: [soft] Extremities: [intact] Neurological: [intact] Skin: []wnl Lab/Tests/Diagnostic Imaging: [charted] (1) Community acquired bacterial pneumonia: Status: Acute Code(s): J15.9 - Unspecified bacterial pneumonia SNOMED Code(s): 276303099 Assessment: Minor, on abx, low dose O2 (2) Chronic progressive renal failure, stage 4 (severe): Status: Acute Code(s): N18.4 - Chronic kidney disease, stage 4 (severe) SNOMED Code(s): 890146623 Assessment: Minor change from baseline. (3) Acute exacerbation of CHF (congestive heart failure): Status: Acute Code(s): I50.9 - Heart failure, unspecified SNOMED Code(s): 828242455 Assessment: Improved with lasix. Plan: Continue same tx, try and wean off O2.
[2021-05-31] MEDS: ROCEPHIN 1 GM/50 ML D5W 1 GM/50 ML BAG IV SCH (20:44)
[2021-06-01] MEDS: DUONEB NEB SCH ×4 (04:57→20:09)
[2021-06-01 05:44] LABS: BASOPHILS % (AUTO) 0.1 % (0.0-3.0); EOSINOPHILS % (AUTO) 0.1 % (0.0-7.0); HEMATOCRIT 28.9 % (37.0-47.0); HEMOGLOBIN 9.1 g/dl (12.0-16.0); IMMATURE GRANULOCYTE # (AUTO) 0.2 (0.0-1.0); IMMATURE GRANULOCYTE % (AUTO) 1.1 % (0.0-5.0); LYMPHOCYTES # (AUTO) 2.1 K/uL (0.60-3.4); LYMPHOCYTES % (AUTO) 15.4 (10.0-50.0); MEAN CORPUSCULAR HEMOGLOBIN 28.8 pg (27.0-31.0); MEAN CORPUSCULAR HGB CONC 31.5 (31.8-35.4); MEAN CORPUSCULAR VOLUME 91.5 fl (81.0-99.0); MONOCYTES # (AUTO) 1.1 K/uL (0.4-2.0); MONOCYTES % (AUTO) 8.2 (0-10); NEUTROPHILS % (AUTO) 75.1 % (42.2-75.2); PLATELET COUNT 359 10^3/uL (140-440); RDW COEFFICIENT OF VARIATION 13.5 % (11.6-14.8); RED BLOOD COUNT 3.16 10^6/ul (4.20-5.40); WHITE BLOOD COUNT 13.36 K/ul (4.6-10.2)
[2021-06-01 05:58] LABS: BLOOD UREA NITROGEN 57.7 mg/dL (7-17); CALCIUM 8.55 mg/dL (8.4-10.2); CARBON DIOXIDE 23.8 mmol/L (22-30.0); CHLORIDE 106.6 mmol/L (98-107); CREATININE 2.71 mg/dL (0.60-1.30); POTASSIUM 4.01 mmol/L (3.5-5.1); SODIUM 136.3 mmol/L (134.5-145)
[2021-06-01] MEDS: HUMULIN R SUBCUT PRN (06:12)
[2021-06-01] MEDS: LASIX IVP SCH ×2 (08:54→17:24)
[2021-06-01] MEDS: HUMALOG SUBCUT SCH ×3 (09:31→17:21)
[2021-06-01] MEDS: ELIQUIS PO SCH ×2 (09:32→20:38)
[2021-06-01] MEDS: PRAVACHOL PO SCH (09:38)
[2021-06-01] MEDS: VITAMIN D PO SCH (09:38)
[2021-06-01] MEDS: TRADJENTA PO SCH (09:38)
[2021-06-01] MEDS: ZITHROMAX PO SCH (09:38)
[2021-06-01] MEDS: ASPIRIN EC PO SCH (09:38)
[2021-06-01] MEDS: CATAPRES PO SCH (09:39)
[2021-06-01] MEDS: NORVASC PO SCH (09:39)
[2021-06-01] MEDS: COREG PO SCH (09:40)
[2021-06-01] MEDS: COZAAR PO SCH (09:40)
[2021-06-01] MEDS: TOPROL XL PO SCH ×2 (14:07→20:38)
[2021-06-01 14:29] LABS: TROPONIN I 0.079 ng/ml (0.0000-0.120)
[2021-06-01] MEDS: LANTUS SUBCUT SCH (20:38)
[2021-06-01] MEDS: ROCEPHIN 1 GM/50 ML D5W 1 GM/50 ML BAG IV SCH (20:41)
--- NOTE | 2021-06-01 23:17 | PCM.PROG ---
Date Seen by Provider: 06/01/21 Time Seen by Provider: 15:00 Subjective: Feels better, less SOA, would like to stay one more day. Objective: Vitals: T=98.2 F, P=81, R=16, GF=558/78, SPO2=96 HEENT: [WNL] Neck: [supple] Lungs: [decreased breath sounds] CVS: [rrr, no m] Abdomen: [soft] Extremities: [intact] Neurological: [intact] Skin: [wnl] Lab/Tests/Diagnostic Imaging: see chart[] (1) Community acquired bacterial pneumonia: Status: Acute Code(s): J15.9 - Unspecified bacterial pneumonia SNOMED Code(s): 893974484 Assessment: A mild pneumonia, clinically improving, on rocephin and zithromax. Sat. OK, titrating to room air. (2) Chronic progressive renal failure, stage 4 (severe): Status: Acute Code(s): N18.4 - Chronic kidney disease, stage 4 (severe) SNOMED Code(s): 883969067 Assessment: CKD without sig change, stable (3) Acute exacerbation of CHF (congestive heart failure): Status: Acute Code(s): I50.9 - Heart failure, unspecified SNOMED Code(s): 279443334 Assessment: Mild CHF, gentle diuresis due to underlying CKD, probably can cut back on lasix. Plan: Considering d/c, patient had a brief spell of sinus tach without chest pain, she has not been getting her beta lindsey here, restarted, can probably go tomorrow, will need to complete abx, perhaps levaquin at 250 mg daily due to CKD. Will need to decide on diuretic dose, currently on bumex. Will follow-up with PCP after d/c.
[2021-06-02] MEDS: DUONEB NEB SCH ×4 (04:45→20:15)
[2021-06-02] MEDS: LASIX IVP SCH ×2 (05:38→16:57)
[2021-06-02] MEDS ORDERED: CATAPRES PO ONE (06:30)
[2021-06-02] MEDS ORDERED: CATAPRES ONE (06:35)
[2021-06-02] MEDS: ZITHROMAX PO SCH (09:26)
[2021-06-02] MEDS: VITAMIN D PO SCH (09:27)
[2021-06-02] MEDS: TRADJENTA PO SCH (09:27)
[2021-06-02] MEDS: ASPIRIN EC PO SCH (09:27)
[2021-06-02] MEDS: NORVASC PO SCH (09:27)
[2021-06-02] MEDS: TOPROL XL PO SCH ×2 (09:27→20:37)
[2021-06-02] MEDS: PRAVACHOL PO SCH (09:28)
[2021-06-02] MEDS: ELIQUIS PO SCH ×2 (09:28→20:37)
[2021-06-02] MEDS: COZAAR PO SCH (09:28)
[2021-06-02] MEDS: HUMALOG SUBCUT SCH ×3 (09:28→17:29)
[2021-06-02] MEDS ORDERED: MILK OF MAGNESIA PO ONE (10:52)
[2021-06-02] MEDS ORDERED: SODIUM CHLORIDE 500 ML IV STA (12:04)
[2021-06-02] MEDS ORDERED: SODIUM CHLORIDE 1,000 ML IV SCH (12:30)
--- NOTE | 2021-06-02 13:30 | PCM.PROG ---
Date Seen by Provider: 06/02/21 Time Seen by Provider: 11:30 Subjective: no acute chest pain, SOB or fever today. Objective: Vitals: T=97.3 F, P=76, R=20, OA=931/86, SPO2=99 HEENT: []wnl Neck: []supple Lungs: []minimal occ rhonchi generalized CVS: []rrr Abdomen: []benign Extremities: []no acute abnormality Neurological: []non-focal Skin: []wnl Lab/Tests/Diagnostic Imaging: [] (1) Community acquired bacterial pneumonia: Status: Acute Code(s): J15.9 - Unspecified bacterial pneumonia SNOMED Code(s): 376935001 (2) Chronic progressive renal failure, stage 4 (severe): Status: Acute Code(s): N18.4 - Chronic kidney disease, stage 4 (severe) SNOMED Code(s): 981081775 (3) Acute exacerbation of CHF (congestive heart failure): Status: Acute Code(s): I50.9 - Heart failure, unspecified SNOMED Code(s): 675148967 Plan: 1. Pt to sit out of bed. 2. Add Milk of Mag. and anti-hypertensive Rx. 3. Consider discharge on 06/03/2021.
[2021-06-02] MEDS: CATAPRES PO SCH (20:37)
[2021-06-02] MEDS: HUMULIN R SUBCUT PRN (20:39)
[2021-06-02] MEDS: LANTUS SUBCUT SCH (20:40)
[2021-06-02] MEDS: ROCEPHIN 1 GM/50 ML D5W 1 GM/50 ML BAG IV SCH (20:42)
[2021-06-02] MEDS ORDERED: MILK OF MAGNESIA PO SCH (21:00)
[2021-06-03] MEDS: DUONEB NEB SCH ×3 (04:45→14:00)
[2021-06-03] MEDS: LASIX IVP SCH (05:58)
[2021-06-03 05:59] LABS: BASOPHILS # (AUTO) 0.1 K/uL (0-0.2); BASOPHILS % (AUTO) 1.1 % (0.0-3.0); EOSINOPHILS # (AUTO) 0.4 K/ul (0.0-0.7); EOSINOPHILS % (AUTO) 5.2 % (0.0-7.0); HEMATOCRIT 28.4 % (37.0-47.0); HEMOGLOBIN 8.9 g/dl (12.0-16.0); IMMATURE GRANULOCYTE % (AUTO) 0.6 % (0.0-5.0); LYMPHOCYTES # (AUTO) 2.4 K/uL (0.60-3.4); LYMPHOCYTES % (AUTO) 33.8 (10.0-50.0); MEAN CORPUSCULAR HEMOGLOBIN 29.3 pg (27.0-31.0); MEAN CORPUSCULAR HGB CONC 31.3 (31.8-35.4); MEAN CORPUSCULAR VOLUME 93.4 fl (81.0-99.0); MONOCYTES # (AUTO) 0.7 K/uL (0.4-2.0); MONOCYTES % (AUTO) 10.3 (0-10); NEUTROPHILS # (AUTO) 3.5 K/ul (2.0-6.9); PLATELET COUNT 347 10^3/uL (140-440); RDW COEFFICIENT OF VARIATION 13.9 % (11.6-14.8); RED BLOOD COUNT 3.04 10^6/ul (4.20-5.40); WHITE BLOOD COUNT 7.18 K/ul (4.6-10.2)
[2021-06-03 06:17] LABS: ALANINE AMINOTRANSFERASE 10.5 U/L (0-35); ALBUMIN 3.25 g/dL (3.5-5.0); ALKALINE PHOSPHATASE 63.7 U/L (53-141); BILIRUBIN,TOTAL 0.36 mg/dL (0.2-1.3); BLOOD UREA NITROGEN 56.2 mg/dL (7-17); CALCIUM 8.2 mg/dL (8.4-10.2); CARBON DIOXIDE 26.9 mmol/L (22-30.0); CHLORIDE 108.9 mmol/L (98-107); CREATININE 2.41 mg/dL (0.60-1.30); GLUCOSE 102.6 mg/dL (74-106); POTASSIUM 4.1 mmol/L (3.5-5.1); SODIUM 138.3 mmol/L (134.5-145); TOTAL PROTEIN 6.26 g/dL (6.3-8.2)
[2021-06-03] MEDS: ASPIRIN EC PO SCH (09:19)
[2021-06-03] MEDS: CATAPRES PO SCH (09:20)
[2021-06-03] MEDS: NORVASC PO SCH (09:20)
[2021-06-03] MEDS: PRAVACHOL PO SCH (09:20)
[2021-06-03] MEDS: TRADJENTA PO SCH (09:20)
[2021-06-03] MEDS: ZITHROMAX PO SCH (09:21)
[2021-06-03] MEDS: TOPROL XL PO SCH (09:21)
[2021-06-03] MEDS: COZAAR PO SCH (09:21)
[2021-06-03] MEDS: VITAMIN D PO SCH (09:21)
[2021-06-03] MEDS: ELIQUIS PO SCH (09:22)
[2021-06-03] MEDS: HUMALOG SUBCUT SCH ×2 (09:24→12:07)
--- NOTE | 2021-06-03 09:28 | DI ---
EXAM: Single, portable AP view(s) chest. HISTORY: Improving pneumonia. COMPARISON: 05/31/2021 TECHNIQUE: Single, portable AP view(s) of the chest. FINDINGS: Lungs: The lung voulmes are normal.Minimal airspace opacities in the right base are significantly imp roved in comparison to the prior study. The left lung base is clear. Interstitial prominence is dec reased. There are no suspicious nodules. There is no pneumothorax. Cardiovascular: The heart is enlarged. The pulmonary vasculature is within normal limits.. The aort a is unremarkable. Bella/Mediastinum: Normal. Osseous structures. Normal for age. IMPRESSION: 1. Minimal residual airspace disease in the right base has appearance of a new resolving pneumonia. 2. Improved interstitial prominence. 3. Cardiomegaly.
[2021-06-03 15:20] VITALS: BP 135/70; TEMP 96.8
--- NOTE | 2021-06-03 16:22 | PCM.DC ---
Final Diagnosis: 1. Pneumonia. 2. Uncontrolled HTN. 3. Chronic renal failure. Physical Exam Appearance: Well-appearing, No pain distress and Well-nourished Eyes: CHOCO, EOMI and Conjunctiva clear ENT: Ears normal, Nose normal and Oropharynx normal Neck: Supple Respiratory: Airway patent and Breath sounds clear Cardiovascular: RRR and Pulses normal GI/: Soft, Nontender, No masses and Bowel sounds normal Musculoskeletal: Normal strength, ROM intact, No edema and No calf tenderness Skin: Warm, Dry and Normal color Neurological: Sensation intact, Motor intact, Reflexes intact, Cranial nerves intact and Alert Psychiatric: Affect appropriate (1) Community acquired bacterial pneumonia: Status: Acute Code(s): J15.9 - Unspecified bacterial pneumonia SNOMED Code(s): 943683441 (2) Chronic progressive renal failure, stage 4 (severe): Status: Acute Code(s): N18.4 - Chronic kidney disease, stage 4 (severe) SNOMED Code(s): 781066353 (3) Acute exacerbation of CHF (congestive heart failure): Status: Acute Code(s): I50.9 - Heart failure, unspecified SNOMED Code(s): 638922231 Qualifiers: Heart failure type: unspecified Qualified Code(s): I50.9 - Heart failure, unspecified Reason for Hospitalization: Increased SOB and fever Prognosis/Condition at Discharge: Good. Medications at Discharge: Ambulatory Orders Medication Instructions Recorded insulin lispro 100 unit/mL 5 - 8 unit SUBCUT TIDWM 12/21/14 subcutaneous solution (Humalog U-100 Insulin) aspirin 81 mg tablet,delayed 81 mg PO DAILY 09/08/18 release cholecalciferol (vitamin D3) 25 25 mcg PO DAILY 01/28/19 mcg (1,000 unit) tablet (Vitamin D3) insulin glargine 100 unit/mL (3 25 unit SUBCUT BEDTIME 12/26/20 mL) subcutaneous pen (Lantus Solostar U-100 Insulin) linagliptin 5 mg tablet (Tradjenta) 5 mg PO DAILY 12/26/20 apixaban 2.5 mg tablet (Eliquis) 5 mg PO Q12HR 05/31/21 bumetanide 1 mg tablet 1 mg PO DAILY 05/31/21 nitroglycerin 0.4 mg sublingual 0.4 mg SUBLINGUAL Q5M PRN 05/31/21 tablet pravastatin 40 mg tablet 10 mg PO BEDTIME 05/31/21 acetaminophen 325 mg tablet 650 mg PO Q6HR PRN 06/01/21 metoprolol tartrate 50 mg tablet 50 mg PO Q12HR 06/01/21 azithromycin 500 mg tablet 500 mg PO DAILY 2 Days #2 tab 06/03/21 (Zithromax) cephalexin 500 mg capsule 500 mg PO QID #28 cap 06/03/21 clonidine HCl 0.1 mg tablet 0.1 mg PO BID tab 06/03/21 dextromethorphan-guaifenesin 30 1 tab PO Q12H PRN #20 tab 06/03/21 mg-600 mg tablet extended doocxyw14 hr (Mucinex DM) magnesium hydroxide 400 mg/5 mL 10 ml PO BID 5 Days #100 ml 06/03/21 oral suspension (Milk of Magnesia) Lab/Diagnostics: See report. Education Provided to Patient and Family: See discharge instructions. Follow-ups: PMD in 1-2 days. Discharge Disposition: Home Hospital Course: Pt was stable and ambulatory by 3rd day. She wanted to go home. Plan: Continue home meds. PMD in 1-2 days. May RTC prn.
--- NOTE | 2021-06-03 16:29 | PCM.PROG ---
Date Seen by Provider: 06/03/21 Time Seen by Provider: 15:32 Subjective: Pt is comfortable and wants to go home. Objective: Vitals: T=96.8 F, P=70, R=16, DW=117/70, SPO2=99 HEENT: []wnl Neck: []supple. Lungs: []chest was clear CVS: []rrr Abdomen: []benign Extremities: []wnl Neurological: []non-focal Skin: []wnl Lab/Tests/Diagnostic Imaging: []See the reports. (1) Community acquired bacterial pneumonia: Status: Acute Code(s): J15.9 - Unspecified bacterial pneumonia SNOMED Code(s): 359180014 (2) Chronic progressive renal failure, stage 4 (severe): Status: Acute Code(s): N18.4 - Chronic kidney disease, stage 4 (severe) SNOMED Code(s): 152999073 (3) Acute exacerbation of CHF (congestive heart failure): Status: Acute Code(s): I50.9 - Heart failure, unspecified SNOMED Code(s): 703715844 Plan: For home today. See discharge summary.
== END 2021-06-03 16:55 | disposition home or self-care (01) | DRG 194 ==
LOC: ED 01:51 → MEDSURG A 03:17
PROVIDERS: ADMIT Internal Medicine Geriatric Medicine; ATTEND Emergency Medicine
DX: Z79.899 Other long term (current) drug therapy; Z20.822 Contact with and (suspected) exposure to COVID-19; N18.4 Chronic kidney disease, stage 4 (severe); J15.9 Unspecified bacterial pneumonia; R09.02 Hypoxemia; Z51.81 Encounter for therapeutic drug level monitoring; Z79.4 Long term (current) use of insulin; R06.02 Shortness of breath; I10 Essential (primary) hypertension; R50.9 Fever, unspecified; I50.9 Heart failure, unspecified; E11.9 Type 2 diabetes mellitus without complications

== ENCOUNTER 2021-09-17 18:20 | Observation (INO) ==
[2021-09-17] MEDS ORDERED: CATAPRES PO ONE (18:45)
[2021-09-17] MEDS ORDERED: TYLENOL PO STA (18:45)
--- NOTE | 2021-09-17 18:45 | ED.PDOC ---
General <BUNNY JIMENEZ MD - Last Filed: 09/17/21 18:45> ED Provider: Dr. BUNNY JIMENEZ MD Chief Complaint: Hypertension Stated Complaint: mod elevated blood pressure today with right side headache and right eye visual blurring, no injury, no emesis, +life stressors (her brother today), pt hx htn tia dm, recently changed coreg dosing to qday for bid, hx eliquis, hx carotid surgery Time Seen by Provider: 09/17/21 18:26 Mode of Arrival: Walk-In Information Source: Patient Primary Care Provider: KENNY STARR Sepsis Protocol: For patient's 13 years and over: Temp is 96.8 and below OR 101 and greater Pulse >90 BPM Resp >20/minute Acutely Altered Mental Status Are patient's symptoms suggestive of a new infection, such as: -Pneumonia -Skin, Soft Tissue -Endocarditis -UTI -Bone, Joint Infection -Implantable Device -Acute Abdominal Infection -Wound Infection -Meningitis -Blood Stream Catheter Infection -Unknown <PAYAM LYON - Last Filed: 09/18/21 02:10> Nursing and Triage Documentation Reviewed and Agree: Yes Does patient meet sepsis criteria?: No System Inflammatory Response Syndrome: Not Applicable Review of Systems <BUNNY JIMENEZ MD - Last Filed: 09/17/21 18:45> Review Of Systems Constitutional: Denies Fever Eyes: Reports Blurred vision Ears, Nose, Mouth, Throat: Denies Throat pain Respiratory: Denies Short of air Cardiac: Denies Chest pain GI: Denies Abdominal pain : Denies Dysuria Musculoskeletal: Denies Neck pain Skin: Denies Cyanosis Neurological: Denies Cognitive dysfunction All Other Systems: Other PFSH <BUNNY JIMENEZ MD - Last Filed: 09/17/21 18:45> Medical History Chronic renal failure, stage 4 (severe) Diabetes mellitus Family History Mother Type 1 diabetes mellitus, Onset Age: 50 Social History Smoking and tobacco status: Current every day smoker Surgical History History of section Status post hysterectomy Female Reproductive History Menstrual Hx Hysterectomy: Yes Hx Tubal Ligation: No Physical Exam <BUNNY JIMENEZ MD - Last Filed: 09/17/21 18:45> Physical Exam Appearance: Denies Ill-appearing Ill-appearing: None Pain Distress: Mild Eyes: Reports CHOCO, EOMI and Conjunctiva clear ENT: Reports Oropharynx normal Neck: Supple Respiratory: Reports Airway patent, Breath sounds clear and Breath sounds equal Cardiovascular: Reports RRR GI/: Reports Soft and Nontender Musculoskeletal: Reports ROM intact (auto damage trainee equal) Skin: Reports Warm and Dry Neurological: Reports Alert, Oriented and Other (gcs 15) Psychiatric: Reports Depressed <PAYAM LYON - Last Filed: 09/18/21 02:10> Radiology Interpretation Radiology Interpretation By: Radiologist Radiology Results: No acute changes Exam Interpreted: Portable CXR EKG Interpretation Time of EKG #1: 19:11 Rate: Normal Rhythm: Sinus [place]: Left Interpretation: LVH / <PAYAM LYON - Last Filed: 09/18/21 02:10> Critical Care Note Total Critical Care Time (mins): 20 Comments: medication review, charts review / detailed bedside history, bedside reassessments , medication administration Course <BUNNY JIMENEZ MD - Last Filed: 09/17/21 18:45> Course Hematology/Chemistry: 09/17/21 19:02 09/17/21 19:02 Orders, Labs, Meds: Lab Review 09/17/21 09/17/21 09/17/21 19:02 19:02 19:02 WBC 7.31 RBC 3.24 L Hgb 9.4 L Hct 29.3 L MCV 90.4 MCH 29.0 MCHC 32.1 RDW Coeff of [place] 14.9 H Plt Count 369 Immature Gran % (Auto) 0.4 Neut % (Auto) 60.0 Lymph % (Auto) 27.5 [place] % (Auto) 8.9 Eos % (Auto) 2.5 Baso % (Auto) 0.7 Neut # (Auto) 4.4 Lymph # (Auto) 2.0 [place] # (Auto) 0.7 Eos # (Auto) 0.2 Baso # (Auto) 0.1 Immature Gran # (Auto) 0.0 ESR 72 H PT 9.9 INR 0.95 Sodium 139.6 Potassium 4.10 Chloride 109.6 H Carbon Dioxide 19.4 L Anion Gap 14.70 BUN 52.0 H Creatinine 3.05 H Estimated GFR (MDRD) 19.00 BUN/Creatinine Ratio 17.04 Glucose 223.1 H Hemoglobin A1c Calcium 8.85 Phosphorus Magnesium Total Bilirubin 0.20 AST 21.9 ALT 10.6 Alkaline Phosphatase 82.1 Troponin I 0.023 Total Protein 7.64 Albumin 3.89 Globulin 3.75 Albumin/Globulin Ratio 1.03 SARS CoV-2 RNA Rapid ALICJA 09/17/21 09/17/21 09/17/21 19:02 19:02 20:30 WBC RBC Hgb Hct MCV MCH MCHC RDW Coeff of [place] Plt Count Immature Gran % (Auto) Neut % (Auto) Lymph % (Auto) [place] % (Auto) Eos % (Auto) Baso % (Auto) Neut # (Auto) Lymph # (Auto) [place] # (Auto) Eos # (Auto) Baso # (Auto) Immature Gran # (Auto) ESR PT INR Sodium Potassium Chloride Carbon Dioxide Anion Gap BUN Creatinine Estimated GFR (MDRD) BUN/Creatinine Ratio Glucose Hemoglobin A1c 9.10 H D Calcium Phosphorus 4.50 Magnesium 2.22 Total Bilirubin AST ALT Alkaline Phosphatase Troponin I Total Protein Albumin Globulin Albumin/Globulin Ratio SARS CoV-2 RNA Rapid ALICJA Negative Orders Category Date Time Status EKG-(ED ONLY) Stat CARDIO 09/17/21 18:45 Completed EKG-(IP & OP ONLY) Routine CARDIO 09/18/21 07:00 Ordered ACTIVITY .BR with BRP CARE 09/17/21 20:43 Active BLOOD GLUCOSE MONITORING (MED/SURG) 0630,1100,1700,2100 CARE 09/17/21 21:01 Active GIVE HS SNACK 2100 CARE 09/17/21 20:48 Active INTAKE & OUTPUT Q8HR CARE 09/17/21 20:44 Active IP: INSERT SALINE LOCK ONCE CARE 09/17/21 20:44 Active REMINDER: Call Provider if K < 3.3 meq/L PRN CARE 09/17/21 21:01 Active REMINDER: Give Insulin if Needed 0630,1100,1700,2100 CARE 09/17/21 20:48 Active TELEMETRY MONITORING TELE CARE 09/17/21 21:01 Active TREATMENT ORDER:NURSING ONCE CARE 09/17/21 18:45 Active VITAL SIGNS Q4HR CARE 09/17/21 20:46 Active ADA 1800 LOWELL. DIET DIETARY 09/17/21 Breakfast Ordered CBC W/ AUTO DIFF Routine LAB 09/18/21 06:00 Ordered CBC W/ AUTO DIFF Stat LAB 09/17/21 19:02 Completed CMP [COMPREHENSIVE METABOLIC PANEL] Stat LAB 09/17/21 19:02 Completed COMPREHENSIVE METABOLIC PANEL Stat LAB 09/18/21 06:00 Ordered COVID [SARS COV-2 RNA RAPID ALICJA] Stat LAB 09/17/21 20:30 Completed DRUG SCREEN, URINE, RAPID Stat LAB 09/17/21 22:06 Completed ESR Stat LAB 09/17/21 19:02 Completed HEMOGLOBIN A1C Stat LAB 09/17/21 19:02 Completed MAGNESIUM Stat LAB 09/17/21 19:02 Completed PHOSPHORUS Stat LAB 09/17/21 19:02 Completed PT WITH INR Stat LAB 09/17/21 19:02 Completed TROPONIN I Stat LAB 09/17/21 19:02 Completed URINALYSIS C & S IF INDICATED Stat LAB 09/17/21 22:06 Completed Acetaminophen [Tylenol] MEDS 09/17/21 18:45 Discontinued 650 mg PO ONCE STA Acetaminophen [Tylenol] MEDS 09/17/21 21:16 Active 650 mg PO Q6HR PRN Apixaban [Eliquis] MEDS 09/17/21 21:30 Active 5 mg PO Q12HR Aspirin [Aspirin EC] MEDS 09/18/21 09:00 Active 81 mg PO DAILY Carvedilol [Coreg] MEDS 09/18/21 09:00 Active 25 mg PO BID Clonidine HCl [Catapres] MEDS 09/17/21 18:45 Discontinued 0.2 mg PO ONCE ONE Dextrose 50 % in Water [Dextrose 50%-Water Abboject] MEDS 09/17/21 20:48 Active 50 ml IVP ONCE PRN Furosemide [Lasix Tab] MEDS 09/18/21 09:00 Active 40 mg PO DAILY Insulin Glargine,Hum.rec.anlog [Lantus] MEDS 09/17/21 21:30 Active 25 unit SUBCUT BEDTIME Insulin Regular, Human [Humulin R] MEDS 09/17/21 21:00 Active See Protocol SUBCUT PRN PRN Isosorbide Mononitrate [Imdur] MEDS 09/18/21 09:00 Active 30 mg PO DAILY Losartan Potassium [Cozaar] MEDS 09/18/21 09:00 Active 50 mg PO BID Nitroglycerin [Nitrostat] MEDS 09/17/21 21:16 Active 0.4 mg SL Q5M PRN Sodium Chloride 0.9% [Sodium Chloride] 1,000 ml MEDS 09/17/21 21:00 Active IV 50 mls/hr RESUSCITATION STATUS Routine OTHERS 09/17/21 20:43 Ordered CHEST, 1V AP ONLY Stat RADS 09/17/21 18:[address] HEAD W/O CONTRAST Stat RADS 09/17/21 18:45 Completed Medications Generic Name Dose Route Start Last Admin Trade Name Maame PRN Reason Stop Dose Admin Acetaminophen 650 mg 09/17/21 21:16 Acetaminophen 325 Mg Tablet PO Q6HR PRN Pain Apixaban 5 mg 09/17/21 21:30 09/17/21 22:53 Apixaban 5 Mg Tab PO 5 mg Q12HR DWAYNE Administration Aspirin 81 mg 09/18/21 09:00 Aspirin 81 Mg Tablet.Dr PO DAILY [facility] Carvedilol 25 mg 09/18/21 09:00 Carvedilol 12.5 Mg Tablet PO BID [facility] Dextrose 50 ml 09/17/21 20:48 Dextrose 50 % In Water 50 Ml Disp.Syrin IVP ONCE PRN Unconscious Hypoglycemia , Protocol Furosemide 40 mg 09/18/21 09:00 Furosemide 40 Mg Tablet PO DAILY [facility] Hydroxyzine Pamoate 25 mg 09/17/21 21:50 Hydroxyzine Pamoate 25 Mg Capsule PO 09/18/21 21:49 ONCE PRN Insomnia Sodium Chloride 1,000 mls @ 50 mls/hr 09/17/21 21:00 09/17/21 22:06 Sodium Chloride IV 50 mls/hr .Q20H DWAYNE Administration Insulin Glargine 25 unit 09/17/21 21:30 09/17/21 22:53 Insulin Glargine,Hum.Rec.Anlog 100 Units/Ml SUBCUT 25 unit BEDTIME DWAYNE Administration Insulin Human Regular 0 unit 09/17/21 21:00 Insulin Regular, Human 100 Unit/Ml (3ml) Vial SUBCUT PRN PRN Hyperglycemia Protocol Isosorbide Mononitrate 30 mg 09/18/21 09:00 Isosorbide Mononitrate 30 Mg Tab.Er.24h PO DAILY [facility] Losartan Potassium 50 mg 09/18/21 09:00 Losartan Potassium 25 Mg Tablet PO BID [facility] Nitroglycerin 0.4 mg 09/17/21 21:16 Nitroglycerin 0.4 Mg Tab.Subl SL Q5M PRN Chest Pain Discontinued Medications Generic Name Dose Route Start Last Admin Trade Name Maame PRN Reason Stop Dose Admin Acetaminophen 650 mg 09/17/21 18:45 09/17/21 18:59 Acetaminophen 325 Mg Tablet PO 09/17/21 18:46 650 mg ONCE STA Administration Clonidine 0.2 mg 09/17/21 18:45 09/17/21 18:59 Clonidine Hcl 0.1 Mg Tablet PO 09/17/21 18:46 0.2 mg ONCE ONE Administration Vital Signs: Temp Pulse Resp BP Pulse Ox 09/17/21 20:29 184/108 H 09/17/21 18:20 98.6 F 91 H 18 210/95 H 95 <PAYAM LYON - Last Filed: 09/18/21 02:10> Course Orders, Labs, Meds: Lab Review 09/17/21 09/17/21 09/17/21 19:02 19:02 19:02 WBC 7.31 RBC 3.24 L Hgb 9.4 L Hct 29.3 L MCV 90.4 MCH 29.0 MCHC 32.1 RDW Coeff of [place] 14.9 H Plt Count 369 Immature Gran % (Auto) 0.4 Neut % (Auto) 60.0 Lymph % (Auto) 27.5 [place] % (Auto) 8.9 Eos % (Auto) 2.5 Baso % (Auto) 0.7 Neut # (Auto) 4.4 Lymph # (Auto) 2.0 [place] # (Auto) 0.7 Eos # (Auto) 0.2 Baso # (Auto) 0.1 Immature Gran # (Auto) 0.0 ESR 72 H PT 9.9 INR 0.95 Sodium 139.6 Potassium 4.10 Chloride 109.6 H Carbon Dioxide 19.4 L Anion Gap 14.70 BUN 52.0 H Creatinine 3.05 H Estimated GFR (MDRD) 19.00 BUN/Creatinine Ratio 17.04 Glucose 223.1 H Hemoglobin A1c Calcium 8.85 Phosphorus Magnesium Total Bilirubin 0.20 AST 21.9 ALT 10.6 Alkaline Phosphatase 82.1 Troponin I 0.023 Total Protein 7.64 Albumin 3.89 Globulin 3.75 Albumin/Globulin Ratio 1.03 SARS CoV-2 RNA Rapid ALICJA 09/17/21 09/17/21 09/17/21 19:02 19:02 20:30 WBC RBC Hgb Hct MCV MCH MCHC RDW Coeff of [place] Plt Count Immature Gran % (Auto) Neut % (Auto) Lymph % (Auto) [place] % (Auto) Eos % (Auto) Baso % (Auto) Neut # (Auto) Lymph # (Auto) [place] # (Auto) Eos # (Auto) Baso # (Auto) Immature Gran # (Auto) ESR PT INR Sodium Potassium Chloride Carbon Dioxide Anion Gap BUN Creatinine Estimated GFR (MDRD) BUN/Creatinine Ratio Glucose Hemoglobin A1c 9.10 H D Calcium Phosphorus 4.50 Magnesium 2.22 Total Bilirubin AST ALT Alkaline Phosphatase Troponin I Total Protein Albumin Globulin Albumin/Globulin Ratio SARS CoV-2 RNA Rapid ALICJA Negative Orders Category Date Time Status EKG-(ED ONLY) Stat CARDIO 09/17/21 18:45 Completed EKG-(IP & OP ONLY) Routine CARDIO 09/18/21 07:00 Ordered ACTIVITY .BR with BRP CARE 09/17/21 20:43 Active BLOOD GLUCOSE MONITORING (MED/SURG) 0630,1100,1700,2100 CARE 09/17/21 21:01 Active GIVE HS SNACK 2100 CARE 09/17/21 20:48 Active INTAKE & OUTPUT Q8HR CARE 09/17/21 20:44 Active IP: INSERT SALINE LOCK ONCE CARE 09/17/21 20:44 Active REMINDER: Call Provider if K < 3.3 meq/L PRN CARE 09/17/21 21:01 Active REMINDER: Give Insulin if Needed 0630,1100,1700,2100 CARE 09/17/21 20:48 Active TELEMETRY MONITORING TELE CARE 09/17/21 21:01 Active TREATMENT ORDER:NURSING ONCE CARE 09/17/21 18:45 Active VITAL SIGNS Q4HR CARE 09/17/21 20:46 Active ADA 1800 LOWELL. DIET DIETARY 09/17/21 Breakfast Ordered CBC W/ AUTO DIFF Routine LAB 09/18/21 06:00 Ordered CBC W/ AUTO DIFF Stat LAB 09/17/21 19:02 Completed CMP [COMPREHENSIVE METABOLIC PANEL] Stat LAB 09/17/21 19:02 Completed COMPREHENSIVE METABOLIC PANEL Stat LAB 09/18/21 06:00 Ordered COVID [SARS COV-2 RNA RAPID ALICJA] Stat LAB 09/17/21 20:30 Completed DRUG SCREEN, URINE, RAPID Stat LAB 09/17/21 22:06 Completed ESR Stat LAB 09/17/21 19:02 Completed HEMOGLOBIN A1C Stat LAB 09/17/21 19:02 Completed MAGNESIUM Stat LAB 09/17/21 19:02 Completed PHOSPHORUS Stat LAB 09/17/21 19:02 Completed PT WITH INR Stat LAB 09/17/21 19:02 Completed TROPONIN I Stat LAB 09/17/21 19:02 Completed URINALYSIS C & S IF INDICATED Stat LAB 09/17/21 22:06 Completed Acetaminophen [Tylenol] MEDS 09/17/21 18:45 Discontinued 650 mg PO ONCE STA Acetaminophen [Tylenol] MEDS 09/17/21 21:16 Active 650 mg PO Q6HR PRN Apixaban [Eliquis] MEDS 09/17/21 21:30 Active 5 mg PO Q12HR Aspirin [Aspirin EC] MEDS 09/18/21 09:00 Active 81 mg PO DAILY Carvedilol [Coreg] MEDS 09/18/21 09:00 Active 25 mg PO BID Clonidine HCl [Catapres] MEDS 09/17/21 18:45 Discontinued 0.2 mg PO ONCE ONE Dextrose 50 % in Water [Dextrose 50%-Water Abboject] MEDS 09/17/21 20:48 Active 50 ml IVP ONCE PRN Furosemide [Lasix Tab] MEDS 09/18/21 09:00 Active 40 mg PO DAILY Insulin Glargine,Hum.rec.anlog [Lantus] MEDS 09/17/21 21:30 Active 25 unit SUBCUT BEDTIME Insulin Regular, Human [Humulin R] MEDS 09/17/21 21:00 Active See Protocol SUBCUT PRN PRN Isosorbide Mononitrate [Imdur] MEDS 09/18/21 09:00 Active 30 mg PO DAILY Losartan Potassium [Cozaar] MEDS 09/18/21 09:00 Active 50 mg PO BID Nitroglycerin [Nitrostat] MEDS 09/17/21 21:16 Active 0.4 mg SL Q5M PRN Sodium Chloride 0.9% [Sodium Chloride] 1,000 ml MEDS 09/17/21 21:00 Active IV 50 mls/hr RESUSCITATION STATUS Routine OTHERS 09/17/21 20:43 Ordered CHEST, 1V AP ONLY Stat RADS 09/17/21 18:[address] HEAD W/O CONTRAST Stat RADS 09/17/21 18:45 Completed Medications Generic Name Dose Route Start Last Admin Trade Name Maame PRN Reason Stop Dose Admin Acetaminophen 650 mg 09/17/21 21:16 Acetaminophen 325 Mg Tablet PO Q6HR PRN Pain Apixaban 5 mg 09/17/21 21:30 09/17/21 22:53 Apixaban 5 Mg Tab PO 5 mg Q12HR DWAYNE Administration Aspirin 81 mg 09/18/21 09:00 Aspirin 81 Mg Tablet.Dr PO DAILY [facility] Carvedilol 25 mg 09/18/21 09:00 Carvedilol 12.5 Mg Tablet PO BID [facility] Dextrose 50 ml 09/17/21 20:48 Dextrose 50 % In Water 50 Ml Disp.Syrin IVP ONCE PRN Unconscious Hypoglycemia , Protocol Furosemide 40 mg 09/18/21 09:00 Furosemide 40 Mg Tablet PO DAILY [facility] Hydroxyzine Pamoate 25 mg 09/17/21 21:50 Hydroxyzine Pamoate 25 Mg Capsule PO 09/18/21 21:49 ONCE PRN Insomnia Sodium Chloride 1,000 mls @ 50 mls/hr 09/17/21 21:00 09/17/21 22:06 Sodium Chloride IV 50 mls/hr .Q20H DWAYNE Administration Insulin Glargine 25 unit 09/17/21 21:30 09/17/21 22:53 Insulin Glargine,Hum.Rec.Anlog 100 Units/Ml SUBCUT 25 unit BEDTIME DWAYNE Administration Insulin Human Regular 0 unit 09/17/21 21:00 Insulin Regular, Human 100 Unit/Ml (3ml) Vial SUBCUT PRN PRN Hyperglycemia Protocol Isosorbide Mononitrate 30 mg 09/18/21 09:00 Isosorbide Mononitrate 30 Mg Tab.Er.24h PO DAILY [facility] Losartan Potassium 50 mg 09/18/21 09:00 Losartan Potassium 25 Mg Tablet PO BID DWAYNE Nitroglycerin 0.4 mg 09/17/21 21:16 Nitroglycerin 0.4 Mg Tab.Subl SL Q5M PRN Chest Pain Discontinued Medications Generic Name Dose Route Start Last Admin Trade Name Maame PRN Reason Stop Dose Admin Acetaminophen 650 mg 09/17/21 18:45 09/17/21 18:59 Acetaminophen 325 Mg Tablet PO 09/17/21 18:46 650 mg ONCE STA Administration Clonidine 0.2 mg 09/17/21 18:45 09/17/21 18:59 Clonidine Hcl 0.1 Mg Tablet PO 09/17/21 18:46 0.2 mg ONCE ONE Administration Vital Signs: Temp Pulse Resp BP Pulse Ox 09/17/21 20:29 184/108 H 09/17/21 18:20 98.6 F 91 H 18 210/95 H [address] Jimenez at shift change Pt chart reviewed, pt interviewed and examined . Evening meds resumed Losartan 50 mg , P t states she was admitted in [facility] last Feb for covid and her meds were adjusted. Since that time she has not had normal BP readings . Hoever , she stopped taking her trajenta 5 mg , imdur She did not take any regular insulin today / didn t eat evening meal She has had intermittent decreased / blurred vision right eye since having covid. She has a cataract right eye no corrective lenses here vision is a baseline for her She said her pressures were better while taking hydralazine q 8 hrs and clonidine - she is off those He brother passed today in [place]. Her granddaughter is at home taking care of pts son who has a heart condition. Pt drove self to ED 1999 hrs - I discussed a 23 hr observation . Since she has been off some meds for some time we need to get her back on schedule and lower by 20-30% using IV hydralazine. She may not agree to staying . She has a nephrology appt tomorrow am which if her pressures are better she needs to keep due to both her pressures and Creatinine clearance 2031 pt bp 184/ 108. She checked with family - she will stay - Nephro appt 10:45 am tomorrow so she will need plenty of time to arrive if medically improved Add rolf FRANCIS Risk Score <BUNNY JIMENEZ MD - Last Filed: 09/17/21 18:45> FRANCIS Risk Score: Risk Score Odds of by 30D 0 0.1 (0.1-0.2) 1 0.3 (0.2-0.3) 2 0.4 (0.3-0.5) 3 0.7 (0.6-0.9) 4 1.2 (1.0-1.5) 5 2.2 (1.9-2.6) 6 3.0 (2.5-3.6) 7 4.8 (3.8-6.1) Discharge Plan Discharge Patient Disposition: PLACED OBSERVATION Discharge Problem: Hypertensive urgency, Chronic progressive renal failure, stage 4 (severe), Personal history of noncompliance with medical treatment and regimen Did you review [place] 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
[2021-09-17 19:10] LABS: BASOPHILS # (AUTO) 0.1 K/uL (0-0.2); BASOPHILS % (AUTO) 0.7 % (0.0-3.0); EOSINOPHILS # (AUTO) 0.2 K/ul (0.0-0.7); EOSINOPHILS % (AUTO) 2.5 % (0.0-7.0); HEMATOCRIT 29.3 % (37.0-47.0); HEMOGLOBIN 9.4 g/dl (12.0-16.0); IMMATURE GRANULOCYTE % (AUTO) 0.4 % (0.0-5.0); LYMPHOCYTES % (AUTO) 27.5 (10.0-50.0); MEAN CORPUSCULAR HGB CONC 32.1 (31.8-35.4); MEAN CORPUSCULAR VOLUME 90.4 fl (81.0-99.0); MONOCYTES # (AUTO) 0.7 K/uL (0.4-2.0); MONOCYTES % (AUTO) 8.9 (0-10); NEUTROPHILS # (AUTO) 4.4 K/ul (2.0-6.9); PLATELET COUNT 369 10^3/uL (140-440); RDW COEFFICIENT OF VARIATION 14.9 % (11.6-14.8); RED BLOOD COUNT 3.24 10^6/ul (4.20-5.40); WHITE BLOOD COUNT 7.31 K/ul (4.6-10.2)
--- NOTE | 2021-09-17 19:12 | DI ---
EXAMINATION: AP chest radiograph. HISTORY: Dizziness COMPARISON: 06/03/2021 FINDINGS: There is stable enlargement of the cardiac silhouette. The central pulmonary vasculature is prominen t.No consolidation, pleural effusion or pneumothorax is seen. Minimal right basilar atelectasis. IMPRESSION: Cardiomegaly and possible pulmonary vascular congestion.
--- NOTE | 2021-09-17 19:16 | CT ---
EXAM: CT scan brain without contrast HISTORY: Headache, blurred vision COMPARISON: CT scan brain 06/18/2020 FINDINGS: Contiguous axial images obtained from skull base to the convexities without contrast utili zing 5-mm collimation. Sagittal and coronal reconstructions were imaged and reviewed. The ventricles and CSF spaces are prominent compatible with age appropriate atrophy. There is mild periventricular hypodensity noted compatible with chronic microvascular disease. There is no acute intracranial fin dings. Atherosclerotic changes are seen involving cavernous internal carotid arteries. The visualiz ed paranasal sinuses and mastoid air cells are clear. The calvarium is intact. IMPRESSION: No acute intracranial findings. All CT scans are performed using dose optimization techniques as appropriate to the performed exam an d include at least one of the following: Automated exposure control, adjustment of the mA and/or kV according t o size, and the use of iterative reconstruction technique.
[2021-09-17 19:20] LABS: PROTHROMBIN TIME 9.9 SEC (9.3-11.0)
[2021-09-17 19:22] LABS: ALANINE AMINOTRANSFERASE 10.6 U/L (0-35); ALBUMIN 3.89 g/dL (3.5-5.0); ALKALINE PHOSPHATASE 82.1 U/L (53-141); ASPARTATE AMINO TRANSFERASE 21.9 U/L (14-36); BILIRUBIN,TOTAL 0.2 mg/dL (0.2-1.3); CALCIUM 8.85 mg/dL (8.4-10.2); CARBON DIOXIDE 19.4 mmol/L (22-30.0); CHLORIDE 109.6 mmol/L (98-107); CREATININE 3.05 mg/dL (0.60-1.30); GLUCOSE 223.1 mg/dL (74-106); POTASSIUM 4.1 mmol/L (3.5-5.1); SODIUM 139.6 mmol/L (134.5-145); TOTAL PROTEIN 7.64 g/dL (6.3-8.2)
[2021-09-17 19:33] LABS: TROPONIN I 0.023 ng/ml (0.0000-0.120)
[2021-09-17 19:47] LABS: ERYTHROCYTE SEDIMENTATION RATE 72 mm/hr (0-20)
[2021-09-17] MEDS ORDERED: DEXTROSE 50%-WATER ABBOJECT IVP PRN (20:48)
[2021-09-17] MEDS ORDERED: SODIUM CHLORIDE 1,000 ML IV SCH (21:00)
[2021-09-17] MEDS ORDERED: NITROSTAT SL PRN (21:16)
[2021-09-17] MEDS ORDERED: TYLENOL PO PRN (21:16)
[2021-09-17 21:34] LABS: MAGNESIUM 2.22 mg/dL (1.6-2.3); PHOSPHORUS 4.5 mg/dL (2.5-4.5)
[2021-09-17] MEDS ORDERED: VISTARIL PO PRN (21:50)
[2021-09-17 22:17] VITALS: BMI 31.3
[2021-09-17 22:27] LABS: BILIRUBIN,URINE Negative (NEGATIVE); CLARITY,URINE Clear (CLEAR); COLOR,URINE Yellow (YELLOW); GLUCOSE, URINE (UA) Trace (NEGATIVE); KETONES,URINE Negative (NEGATIVE); LEUKOCYTE ESTERASE ,URINE Negative (NEGATIVE); NITRITE,URINE Negative (NEGATIVE); PROTEIN,URINE 2+ (NEGATIVE); URINE, BLOOD Negative (NEGATIVE); UROBILINOGEN,URINE 0.2 (0.2)
[2021-09-17 22:31] LABS: MUCUS,URINE 2+ (NOT PRESENT); URINE RBC, MICROSCOPIC 0-2 (0-2); URINE WBC, MICROSCOPIC 20-30 (0-2)
[2021-09-17 22:35] LABS: AMPHETAMINE SCREEN,URINE NEGATIVE (NEGATIVE); BARBITURATE SCREEN,URINE NEGATIVE (NEGATIVE); BENZODIAZEPINES SCREEN,URINE NEGATIVE (NEGATIVE); CANNABINOID SCREEN,URINE NEGATIVE (NEGATIVE); COCAIN SCREEN,URINE NEGATIVE (NEGATIVE); METHADONE URINE SCREEN NEGATIVE (NEGATIVE); METHAMPHETAMINES SCREEN,URINE NEGATIVE (NEGATIVE); OPIATE SCREEN,URINE NEGATIVE (NEGATIVE); OXYCODONE URINE SCREEN NEGATIVE (NEGATIVE); PHENCYCLIDINE SCREEN,URINE NEGATIVE (NEGATIVE); PROPOXYPHENE URINE SCREEN NEGATIVE (NEGATIVE); TRICYCLIC ANTIDEPRESSANTS URIN NEGATIVE (NEGATIVE)
[2021-09-17] MEDS: LANTUS SUBCUT SCH (22:53)
[2021-09-17] MEDS: ELIQUIS PO SCH (22:53)
--- NOTE | 2021-09-18 02:09 | PCM ---
Chief Complaint Chief Complaint: elevated blood pressure History of Present Illness History of Present Illness: she quit taking some of her bp meds. He brother today. On evaluation her creatinine was elevated to 3 and her Cr Cl was lowered at 22. She has CKD and diabetes. She also quit taking her oral diabetic med. Review of Systems Constitutional: Reports No symptoms Eyes: Reports Blurred vision (hx of same OD , possible cataract , also exacerbation with BP elevations ) Ears: Reports No symptoms Nose: Reports No symptoms Throat: Reports No symptoms Mouth: Reports No symptoms Respiratory: Reports No symptoms Cardiovascular: Reports No symptoms Gastrointestinal: Reports No symptoms Genitourinary: Reports No symptoms Neurological: Reports Headache (not worse ever ) Musculoskeletal: Reports No symptoms Skin: Reports No symptoms Immunology: Reports No symptoms Hematology: Reports No symptoms Endocrine: Reports No symptoms Psychiatric: Reports No symptoms Habits: Denies Tobacco use, Substance use, Alcohol use or Other Allergies Allergies Allergy/AdvReac Type Severity Reaction Status Date / Time Penicillins AdvReac Unknown Verified 09/17/21 18:24 sulfamethoxazole AdvReac Dizziness Verified 09/17/21 18:24 [From Bactrim] trimethoprim [From Bactrim] AdvReac Dizziness Verified 09/17/21 18:24 PFSH Medical History Chronic renal failure, stage 4 (severe) Diabetes mellitus Surgical History History of section Status post hysterectomy Family History Mother Type 1 diabetes mellitus, Onset Age: 50 Social History Smoking and tobacco status: Current every day smoker Medications Medications: Medications Generic Name Dose Route Start Last Admin Trade Name Freq PRN Reason Stop Dose Admin Acetaminophen 650 mg 09/17/21 21:16 Acetaminophen 325 Mg Tablet PO Q6HR PRN Pain Apixaban 5 mg 09/17/21 21:30 09/17/21 22:53 Apixaban 5 Mg Tab PO 5 mg Q12HR DWAYNE Administration Aspirin 81 mg 09/18/21 09:00 Aspirin 81 Mg Tablet. PO DAILY [facility] Carvedilol 25 mg 09/18/21 09:00 Carvedilol 12.5 Mg Tablet PO BID DWAYNE Dextrose 50 ml 09/17/21 20:48 Dextrose 50 % In Water 50 Ml Disp.Syrin IVP ONCE PRN Unconscious Hypoglycemia , Protocol Furosemide 40 mg 09/18/21 09:00 Furosemide 40 Mg Tablet PO DAILY DWAYNE Hydroxyzine Pamoate 25 mg 09/17/21 21:50 Hydroxyzine Pamoate 25 Mg Capsule PO 09/18/21 21:49 ONCE PRN Insomnia Sodium Chloride 1,000 mls @ 50 mls/hr 09/17/21 21:00 09/17/21 22:06 Sodium Chloride IV 50 mls/hr .Q20H DWAYNE Administration Insulin Glargine 25 unit 09/17/21 21:30 09/17/21 22:53 Insulin Glargine,Hum.Rec.Anlog 100 Units/Ml SUBCUT 25 unit BEDTIME DWAYNE Administration Insulin Human Regular 0 unit 09/17/21 21:00 Insulin Regular, Human 100 Unit/Ml (3ml) Vial SUBCUT PRN PRN Hyperglycemia Protocol Isosorbide Mononitrate 30 mg 09/18/21 09:00 Isosorbide Mononitrate 30 Mg Tab.Er.24h PO DAILY [facility] Losartan Potassium 50 mg 09/18/21 09:00 Losartan Potassium 25 Mg Tablet PO BID DWAYNE Nitroglycerin 0.4 mg 09/17/21 21:16 Nitroglycerin 0.4 Mg Tab.Subl SL Q5M PRN Chest Pain Body Composition Height: 5 ft 3 in Weight: 177 lb Body Mass Index (BMI): 31.3 Vital Signs Temperature: 98.2 F Pulse Rate: 74 Respiratory Rate: 16 Blood Pressure: 148/78 O2 Sat by Pulse Oximetry: 99 Physical Examination Appearance: Reports Well-appearing Ill-appearing: None Pain Distress: None Eyes: Reports CHOCO, EOMI and Conjunctiva clear ENT: Reports Ears normal, Nose normal and Oropharynx normal Neck: Supple Respiratory: Reports Airway patent and Breath sounds clear Cardiovascular: Reports RRR, Pulses normal and No murmur GI/: Reports Soft and Nontender Musculoskeletal: Reports Normal strength and ROM intact Skin: Reports Warm, Dry and Normal color Neurological: Reports Sensation intact, Motor intact, Reflexes intact, Alert and Oriented Psychiatric: Reports Affect appropriate Lab/Tests/Diagnostic Imaging Lab/Tests/Diagnostic Imaging: Lab Review 09/17/21 09/17/21 09/17/21 19:02 19:02 19:02 WBC 7.31 RBC 3.24 L Hgb 9.4 L Hct 29.3 L MCV 90.4 MCH 29.0 MCHC 32.1 RDW Coeff of [place] 14.9 H Plt Count 369 Immature Gran % (Auto) 0.4 Neut % (Auto) 60.0 Lymph % (Auto) 27.5 [place] % (Auto) 8.9 Eos % (Auto) 2.5 Baso % (Auto) 0.7 Neut # (Auto) 4.4 Lymph # (Auto) 2.0 [place] # (Auto) 0.7 Eos # (Auto) 0.2 Baso # (Auto) 0.1 Immature Gran # (Auto) 0.0 ESR 72 H PT 9.9 INR 0.95 Sodium 139.6 Potassium 4.10 Chloride 109.6 H Carbon Dioxide 19.4 L Anion Gap 14.70 BUN 52.0 H Creatinine 3.05 H Estimated GFR (MDRD) 19.00 BUN/Creatinine Ratio 17.04 Glucose 223.1 H Hemoglobin A1c Calcium 8.85 Phosphorus Magnesium Total Bilirubin 0.20 AST 21.9 ALT 10.6 Alkaline Phosphatase 82.1 Troponin I 0.023 Total Protein 7.64 Albumin 3.89 Globulin 3.75 Albumin/Globulin Ratio 1.03 Urine Color Urine Clarity Urine pH Ur Specific [place] Urine Protein Urine Glucose (UA) Urine Ketones Urine Blood Urine Nitrite Urine Bilirubin Urine Urobilinogen Ur Leukocyte Esterase Urine Microscopic RBC Urine Microscopic WBC Ur Squamous Epith Cells Urine Mucus Urine Opiates Screen Ur Oxycodone Screen Urine Methadone Screen Ur Propoxyphene Screen Ur Barbiturates Screen U Tricyclic Antidepress Ur Phencyclidine Scrn Ur Amphetamine Screen U Methamphetamines Scrn U Benzodiazepines Scrn Urine Cocaine Screen U Cannabinoids Screen SARS CoV-2 RNA Rapid ALICJA 09/17/21 09/17/21 09/17/21 19:02 19:02 20:30 WBC RBC Hgb Hct MCV MCH MCHC RDW Coeff of [place] Plt Count Immature Gran % (Auto) Neut % (Auto) Lymph % (Auto) [place] % (Auto) Eos % (Auto) Baso % (Auto) Neut # (Auto) Lymph # (Auto) [place] # (Auto) Eos # (Auto) Baso # (Auto) Immature Gran # (Auto) ESR PT INR Sodium Potassium Chloride Carbon Dioxide Anion Gap BUN Creatinine Estimated GFR (MDRD) BUN/Creatinine Ratio Glucose Hemoglobin A1c 9.10 H D Calcium Phosphorus 4.50 Magnesium 2.22 Total Bilirubin AST ALT Alkaline Phosphatase Troponin I Total Protein Albumin Globulin Albumin/Globulin Ratio Urine Color Urine Clarity Urine pH Ur Specific [place] Urine Protein Urine Glucose (UA) Urine Ketones Urine Blood Urine Nitrite Urine Bilirubin Urine Urobilinogen Ur Leukocyte Esterase Urine Microscopic RBC Urine Microscopic WBC Ur Squamous Epith Cells Urine Mucus Urine Opiates Screen Ur Oxycodone Screen Urine Methadone Screen Ur Propoxyphene Screen Ur Barbiturates Screen U Tricyclic Antidepress Ur Phencyclidine Scrn Ur Amphetamine Screen U Methamphetamines Scrn U Benzodiazepines Scrn Urine Cocaine Screen U Cannabinoids Screen SARS CoV-2 RNA Rapid ALICJA Negative 09/17/21 09/17/21 22:06 22:06 WBC RBC Hgb Hct MCV MCH MCHC RDW Coeff of [place] Plt Count Immature Gran % (Auto) Neut % (Auto) Lymph % (Auto) [place] % (Auto) Eos % (Auto) Baso % (Auto) Neut # (Auto) Lymph # (Auto) [place] # (Auto) Eos # (Auto) Baso # (Auto) Immature Gran # (Auto) ESR PT INR Sodium Potassium Chloride Carbon Dioxide Anion Gap BUN Creatinine Estimated GFR (MDRD) BUN/Creatinine Ratio Glucose Hemoglobin A1c Calcium Phosphorus Magnesium Total Bilirubin AST ALT Alkaline Phosphatase Troponin I Total Protein Albumin Globulin Albumin/Globulin Ratio Urine Color Yellow Urine Clarity Clear Urine pH 5.0 Ur Specific [place] 1.020 Urine Protein 2+ H Urine Glucose (UA) Trace H Urine Ketones Negative Urine Blood Negative Urine Nitrite Negative Urine Bilirubin Negative Urine Urobilinogen 0.2 Ur Leukocyte Esterase Negative Urine Microscopic RBC 0-2 Urine Microscopic WBC 20-30 Ur Squamous Epith Cells 2-5 Urine Mucus 2+ Urine Opiates Screen Negative Ur Oxycodone Screen Negative Urine Methadone Screen Negative Ur Propoxyphene Screen Negative Ur Barbiturates Screen Negative U Tricyclic Antidepress Negative Ur Phencyclidine Scrn Negative Ur Amphetamine Screen Negative U Methamphetamines Scrn Negative U Benzodiazepines Scrn Negative Urine Cocaine Screen Negative U Cannabinoids Screen Negative SARS CoV-2 RNA Rapid ALICJA Orders Category Date Time Status ADMIT OBSERVATION [PLACE PATIENT OBSERVATION] .TO ADMISSION 09/17/21 21:25 Active MEDSURG (MONITORED BED) EKG-(ED ONLY) Stat CARDIO 09/17/21 18:45 Completed EKG-(IP & OP ONLY) Routine CARDIO 09/18/21 07:00 Ordered ACTIVITY .BR with BRP CARE 09/17/21 20:43 Active BLOOD GLUCOSE MONITORING (MED/SURG) 0630,1100,1700,2100 CARE 09/17/21 21:01 Active GIVE HS SNACK 2100 CARE 09/17/21 20:48 Active INTAKE & OUTPUT Q8HR CARE 09/17/21 20:44 Active IP: INSERT SALINE LOCK ONCE CARE 09/17/21 20:44 Active REMINDER: Call Provider if K < 3.3 meq/L PRN CARE 09/17/21 21:01 Active REMINDER: Give Insulin if Needed 0630,1100,1700,2100 CARE 09/17/21 20:48 Active TELEMETRY MONITORING TELE CARE 09/17/21 21:01 Active TREATMENT ORDER:NURSING ONCE CARE 09/17/21 18:45 Active VITAL SIGNS Q4HR CARE 09/17/21 20:46 Active ADA 1800 LOWELL. DIET DIETARY 09/17/21 Breakfast Ordered CBC W/ AUTO DIFF Routine LAB 09/18/21 06:00 Ordered CBC W/ AUTO DIFF Stat LAB 09/17/21 19:02 Completed CMP [COMPREHENSIVE METABOLIC PANEL] Stat LAB 09/17/21 19:02 Completed COMPREHENSIVE METABOLIC PANEL Stat LAB 09/18/21 06:00 Ordered COVID [SARS COV-2 RNA RAPID ALICJA] Stat LAB 09/17/21 20:30 Completed DRUG SCREEN, URINE, RAPID Stat LAB 09/17/21 22:06 Completed ESR Stat LAB 09/17/21 19:02 Completed HEMOGLOBIN A1C Stat LAB 09/17/21 19:02 Completed MAGNESIUM Stat LAB 09/17/21 19:02 Completed NT-PROBNP Stat LAB 09/18/21 06:00 Ordered PHOSPHORUS Stat LAB 09/17/21 19:02 Completed PT WITH INR Stat LAB 09/17/21 19:02 Completed TROPONIN I Stat LAB 09/17/21 19:02 Completed TROPONIN I Stat LAB 09/18/21 06:00 Ordered URINALYSIS C & S IF INDICATED Stat LAB 09/17/21 22:06 Completed URINE CULTURE Stat LAB 09/17/21 22:06 Received Acetaminophen [Tylenol] MEDS 09/17/21 18:45 Discontinued 650 mg PO ONCE STA Acetaminophen [Tylenol] MEDS 09/17/21 21:16 Active 650 mg PO Q6HR PRN Apixaban [Eliquis] MEDS 09/17/21 21:30 Active 5 mg PO Q12HR Aspirin [Aspirin EC] MEDS 09/18/21 09:00 Active 81 mg PO DAILY Carvedilol [Coreg] MEDS 09/18/21 09:00 Active 25 mg PO BID Clonidine HCl [Catapres] MEDS 09/17/21 18:45 Discontinued 0.2 mg PO ONCE ONE Dextrose 50 % in Water [Dextrose 50%-Water Abboject] MEDS 09/17/21 20:48 Active 50 ml IVP ONCE PRN Furosemide [Lasix Tab] MEDS 09/18/21 09:00 Active 40 mg PO DAILY Hydroxyzine Pamoate [Vistaril] MEDS 09/17/21 21:50 Active 25 mg PO ONCE PRN Insulin Glargine,Hum.rec.anlog [Lantus] MEDS 09/17/21 21:30 Active 25 unit SUBCUT BEDTIME Insulin Regular, Human [Humulin R] MEDS 09/17/21 21:00 Active See Protocol SUBCUT PRN PRN Isosorbide Mononitrate [Imdur] MEDS 09/18/21 09:00 Active 30 mg PO DAILY Losartan Potassium [Cozaar] MEDS 09/18/21 09:00 Active 50 mg PO BID Nitroglycerin [Nitrostat] MEDS 09/17/21 21:16 Active 0.4 mg SL Q5M PRN Sodium Chloride 0.9% [Sodium Chloride] 1,000 ml MEDS 09/17/21 21:00 Active IV 50 mls/hr RESUSCITATION STATUS Routine OTHERS 09/17/21 20:43 Ordered CHEST, 1V AP ONLY Stat RADS 09/17/21 18:[address] HEAD W/O CONTRAST Stat RADS 09/17/21 18:45 Completed Medications Generic Name Dose Route Start Last Admin Trade Name Freq PRN Reason Stop Dose Admin Acetaminophen 650 mg 09/17/21 21:16 Acetaminophen 325 Mg Tablet PO Q6HR PRN Pain Apixaban 5 mg 09/17/21 21:30 09/17/21 22:53 Apixaban 5 Mg Tab PO 5 mg Q12HR DWAYNE Administration Aspirin 81 mg 09/18/21 09:00 Aspirin 81 Mg Tablet.Dr PO DAILY DWAYNE Carvedilol 25 mg 09/18/21 09:00 Carvedilol 12.5 Mg Tablet PO BID DWAYNE Dextrose 50 ml 09/17/21 20:48 Dextrose 50 % In Water 50 Ml Disp.Syrin IVP ONCE PRN Unconscious Hypoglycemia , Protocol Furosemide 40 mg 09/18/21 09:00 Furosemide 40 Mg Tablet PO DAILY DWAYNE Hydroxyzine Pamoate 25 mg 09/17/21 21:50 Hydroxyzine Pamoate 25 Mg Capsule PO 09/18/21 21:49 ONCE PRN Insomnia Sodium Chloride 1,000 mls @ 50 mls/hr 09/17/21 21:00 09/17/21 22:06 Sodium Chloride IV 50 mls/hr .Q20H DWAYNE Administration Insulin Glargine 25 unit 09/17/21 21:30 09/17/21 22:53 Insulin Glargine,Hum.Rec.Anlog 100 Units/Ml SUBCUT 25 unit BEDTIME DWAYNE Administration Insulin Human Regular 0 unit 09/17/21 21:00 Insulin Regular, Human 100 Unit/Ml (3ml) Vial SUBCUT PRN PRN Hyperglycemia Protocol Isosorbide Mononitrate 30 mg 09/18/21 09:00 Isosorbide Mononitrate 30 Mg Tab.Er.24h PO DAILY [facility] Losartan Potassium 50 mg 09/18/21 09:00 Losartan Potassium 25 Mg Tablet PO BID DWAYNE Nitroglycerin 0.4 mg 09/17/21 21:16 Nitroglycerin 0.4 Mg Tab.Subl SL Q5M PRN Chest Pain Discontinued Medications Generic Name Dose Route Start Last Admin Trade Name Freq PRN Reason Stop Dose Admin Acetaminophen 650 mg 09/17/21 18:45 09/17/21 18:59 Acetaminophen 325 Mg Tablet PO 09/17/21 18:46 650 mg ONCE STA Administration Clonidine 0.2 mg 09/17/21 18:45 09/17/21 18:59 Clonidine Hcl 0.1 Mg Tablet PO 09/17/21 18:46 0.2 mg ONCE ONE Administration Assessment (1) Hypertensive urgency: Status: Acute Code(s): I16.0 - Hypertensive urgency SNOMED Code(s): 317549716 (2) Personal history of noncompliance with medical treatment and regimen: Status: Acute Code(s): Z91.19 - Patient's noncompliance with other medical treatment and regimen SNOMED Code(s): 617947327 (3) Chronic progressive renal failure, stage 4 (severe): Status: Acute Code(s): N18.4 - Chronic kidney disease, stage 4 (severe) SNOMED Code(s): 742180893 Plan Plan: reinstitute bp meds with goal of approx 20-30 % reduction am labs discharge in am if stable in time to take copies of labs with her to her neprology appt at [place] at 1045 discussed need to be compliant with meds to reduce risk of eye , brain, cardiovascular , and renal effects BP met goal at 0100 check up with RN Report to Dr Barber at shift change
[2021-09-18 05:25] LABS: BASOPHILS # (AUTO) 0.1 K/uL (0-0.2); BASOPHILS % (AUTO) 0.9 % (0.0-3.0); EOSINOPHILS # (AUTO) 0.2 K/ul (0.0-0.7); EOSINOPHILS % (AUTO) 3.6 % (0.0-7.0); HEMATOCRIT 26.6 % (37.0-47.0); HEMOGLOBIN 8.4 g/dl (12.0-16.0); IMMATURE GRANULOCYTE % (AUTO) 0.2 % (0.0-5.0); LYMPHOCYTES # (AUTO) 1.8 K/uL (0.60-3.4); LYMPHOCYTES % (AUTO) 33.5 (10.0-50.0); MEAN CORPUSCULAR HEMOGLOBIN 28.7 pg (27.0-31.0); MEAN CORPUSCULAR HGB CONC 31.6 (31.8-35.4); MEAN CORPUSCULAR VOLUME 90.8 fl (81.0-99.0); MONOCYTES # (AUTO) 0.5 K/uL (0.4-2.0); MONOCYTES % (AUTO) 9.9 (0-10); NEUTROPHILS # (AUTO) 2.8 K/ul (2.0-6.9); NEUTROPHILS % (AUTO) 51.9 % (42.2-75.2); PLATELET COUNT 301 10^3/uL (140-440); RDW COEFFICIENT OF VARIATION 14.8 % (11.6-14.8); RED BLOOD COUNT 2.93 10^6/ul (4.20-5.40); WHITE BLOOD COUNT 5.35 K/ul (4.6-10.2)
[2021-09-18 05:38] LABS: ALBUMIN 3.19 g/dL (3.5-5.0); ALKALINE PHOSPHATASE 61.3 U/L (53-141); ASPARTATE AMINO TRANSFERASE 18.2 U/L (14-36); BILIRUBIN,TOTAL 0.35 mg/dL (0.2-1.3); BLOOD UREA NITROGEN 46.6 mg/dL (7-17); CALCIUM 8.49 mg/dL (8.4-10.2); CARBON DIOXIDE 24.3 mmol/L (22-30.0); CHLORIDE 111.7 mmol/L (98-107); CREATININE 2.77 mg/dL (0.60-1.30); GLUCOSE 172.1 mg/dL (74-106); POTASSIUM 4.2 mmol/L (3.5-5.1); SODIUM 139.9 mmol/L (134.5-145); TOTAL PROTEIN 6.47 g/dL (6.3-8.2)
[2021-09-18 05:50] LABS: TROPONIN I 0.024 ng/ml (0.0000-0.120)
[2021-09-18] MEDS ORDERED: ASPIRIN EC PO SCH (09:00)
[2021-09-18] MEDS ORDERED: LASIX TAB PO SCH (09:00)
[2021-09-18] MEDS ORDERED: COREG PO SCH (09:00)
[2021-09-18] MEDS: IMDUR PO SCH (09:13)
[2021-09-18] MEDS: COZAAR PO SCH ×2 (09:14→20:16)
[2021-09-18] MEDS: HUMULIN R SUBCUT PRN ×2 (09:14→20:17)
[2021-09-18] MEDS: ELIQUIS PO SCH ×2 (09:14→20:16)
[2021-09-18] MEDS ORDERED: SODIUM CHLORIDE 1,000 ML IV SCH (14:17)
[2021-09-18] MEDS: COREG PO SCH (17:21)
--- NOTE | 2021-09-18 18:46 | PCM.PROG ---
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
[2021-09-18] MEDS: LANTUS SUBCUT SCH (20:17)
[2021-09-18] MEDS ORDERED: TRANDATE IVP STA (21:28)
[2021-09-18] MEDS ORDERED: ATIVAN IVP ONE (21:28)
[2021-09-18] MEDS ORDERED: VASOTEC IV IVP ONE (21:28)
[2021-09-19] MEDS ORDERED: VASOTEC IV IVP PRN (03:00)
[2021-09-19 05:07] LABS: BASOPHILS % (AUTO) 0.7 % (0.0-3.0); EOSINOPHILS # (AUTO) 0.2 K/ul (0.0-0.7); EOSINOPHILS % (AUTO) 2.7 % (0.0-7.0); HEMATOCRIT 27.1 % (37.0-47.0); HEMOGLOBIN 8.6 g/dl (12.0-16.0); IMMATURE GRANULOCYTE % (AUTO) 0.2 % (0.0-5.0); LYMPHOCYTES # (AUTO) 1.9 K/uL (0.60-3.4); LYMPHOCYTES % (AUTO) 34.6 (10.0-50.0); MEAN CORPUSCULAR HEMOGLOBIN 28.8 pg (27.0-31.0); MEAN CORPUSCULAR HGB CONC 31.7 (31.8-35.4); MEAN CORPUSCULAR VOLUME 90.6 fl (81.0-99.0); MONOCYTES # (AUTO) 0.6 K/uL (0.4-2.0); MONOCYTES % (AUTO) 9.9 (0-10); NEUTROPHILS # (AUTO) 2.9 K/ul (2.0-6.9); NEUTROPHILS % (AUTO) 51.9 % (42.2-75.2); PLATELET COUNT 334 10^3/uL (140-440); RDW COEFFICIENT OF VARIATION 14.8 % (11.6-14.8); RED BLOOD COUNT 2.99 10^6/ul (4.20-5.40); WHITE BLOOD COUNT 5.58 K/ul (4.6-10.2)
[2021-09-19 05:18] LABS: ALANINE AMINOTRANSFERASE 8.4 U/L (0-35); ALBUMIN 3.17 g/dL (3.5-5.0); ALKALINE PHOSPHATASE 61.8 U/L (53-141); ASPARTATE AMINO TRANSFERASE 17.3 U/L (14-36); BILIRUBIN,TOTAL 0.3 mg/dL (0.2-1.3); BLOOD UREA NITROGEN 42.4 mg/dL (7-17); CALCIUM 8.58 mg/dL (8.4-10.2); CARBON DIOXIDE 22.4 mmol/L (22-30.0); CHLORIDE 112.7 mmol/L (98-107); CREATININE 2.7 mg/dL (0.60-1.30); GLUCOSE 74.9 mg/dL (74-106); POTASSIUM 3.98 mmol/L (3.5-5.1); SODIUM 142.6 mmol/L (134.5-145); TOTAL PROTEIN 6.5 g/dL (6.3-8.2)
[2021-09-19 06:21] VITALS: TEMP 97.1
[2021-09-19] MEDS ORDERED: LASIX TAB PO SCH ×3 (06:30)
[2021-09-19] MEDS ORDERED: ASPIRIN EC PO SCH (08:30)
[2021-09-19] MEDS: COZAAR PO SCH (08:56)
[2021-09-19] MEDS: COREG PO SCH (08:56)
[2021-09-19] MEDS: IMDUR PO SCH (08:57)
[2021-09-19] MEDS: ELIQUIS PO SCH (08:57)
--- NOTE | 2021-09-19 11:12 | PCM.DC ---
Final Diagnosis: Hypertensive crisis - resolved. Date of admit - September 17, 2021 Date of discharge - September 19, 2021 Physical Exam Appearance: Well-appearing Ill-appearing: None Pain Distress: None Eyes: CHOCO ENT: Oropharynx normal Neck: Supple Respiratory: Airway patent and Breath sounds clear Cardiovascular: RRR GI/: Soft and Nontender Musculoskeletal: Normal strength and ROM intact Skin: Warm and Dry Neurological: Sensation intact, Motor intact and Alert Psychiatric: Affect appropriate and Mood appropriate (1) Hypertensive urgency: Status: Acute Code(s): I16.0 - Hypertensive urgency SNOMED Code(s): 979504657 (2) Personal history of noncompliance with medical treatment and regimen: Status: Acute Code(s): Z91.19 - Patient's noncompliance with other medical treatment and regimen SNOMED Code(s): 438646726 (3) Chronic progressive renal failure, stage 4 (severe): Status: Acute Code(s): N18.4 - Chronic kidney disease, stage 4 (severe) SNOMED Code(s): 396127038 (4) Insulin dependent type 2 diabetes mellitus: Status: Acute Code(s): E11.9 - Type 2 diabetes mellitus without complications; Z79.4 - snf (current) use of insulin SNOMED Code(s): 355031500 Reason for Hospitalization: Presented to ER with BP over 200 systolic, had been off med. Admitted for BP control. Prognosis/Condition at Discharge: Stable, good condition. Medications at Discharge: Ambulatory Orders Medication Instructions Recorded insulin lispro 100 unit/mL 5 - 8 unit SUBCUT TIDWM 12/21/14 subcutaneous solution (Humalog U-100 Insulin) aspirin 81 mg tablet,delayed 81 mg PO DAILY 09/08/18 release cholecalciferol (vitamin D3) 25 25 mcg PO DAILY 01/28/19 mcg (1,000 unit) tablet (Vitamin D3) insulin glargine 100 unit/mL (3 25 unit SUBCUT BEDTIME 12/26/20 mL) subcutaneous pen (Lantus Solostar U-100 Insulin) apixaban 2.5 mg tablet (Eliquis) 5 mg PO Q12HR 05/31/21 nitroglycerin 0.4 mg sublingual 0.4 mg SUBLINGUAL Q5M PRN 05/31/21 tablet acetaminophen 325 mg tablet 650 mg PO Q6HR PRN 06/01/21 carvedilol 25 mg tablet 25 mg PO BID 09/17/21 furosemide 40 mg tablet 40 mg PO DAILY 09/17/21 isosorbide mononitrate 30 mg 30 mg PO DAILY 09/17/21 tablet,extended release 24 hr losartan 50 mg tablet 50 mg PO BID 09/17/21 Lab/Diagnostics: Laboratory Tests 09/17/21 09/17/21 09/17/21 19:02 19:02 19:02 WBC 7.31 RBC 3.24 L Hgb 9.4 L Hct 29.3 L MCV 90.4 MCH 29.0 MCHC 32.1 RDW Coeff of [place] 14.9 H Plt Count 369 Immature Gran % (Auto) 0.4 Neut % (Auto) 60.0 Lymph % (Auto) 27.5 [place] % (Auto) 8.9 Eos % (Auto) 2.5 Baso % (Auto) 0.7 Neut # (Auto) 4.4 Lymph # (Auto) 2.0 [place] # (Auto) 0.7 Eos # (Auto) 0.2 Baso # (Auto) 0.1 Immature Gran # (Auto) 0.0 ESR 72 H PT 9.9 INR 0.95 Sodium 139.6 Potassium 4.10 Chloride 109.6 H Carbon Dioxide 19.4 L Anion Gap 14.70 BUN 52.0 H Creatinine 3.05 H Estimated GFR (MDRD) 19.00 BUN/Creatinine Ratio 17.04 Glucose 223.1 H Hemoglobin A1c Calcium 8.85 Phosphorus Magnesium Total Bilirubin 0.20 AST 21.9 ALT 10.6 Alkaline Phosphatase 82.1 Troponin I 0.023 NT-Pro-B Natriuret Pep Total Protein 7.64 Albumin 3.89 Globulin 3.75 Albumin/Globulin Ratio 1.03 Urine Color Urine Clarity Urine pH Ur Specific [place] Urine Protein Urine Glucose (UA) Urine Ketones Urine Blood Urine Nitrite Urine Bilirubin Urine Urobilinogen Ur Leukocyte Esterase Urine Microscopic RBC Urine Microscopic WBC Ur Squamous Epith Cells Urine Mucus Urine Opiates Screen Ur Oxycodone Screen Urine Methadone Screen Ur Propoxyphene Screen Ur Barbiturates Screen U Tricyclic Antidepress Ur Phencyclidine Scrn Ur Amphetamine Screen U Methamphetamines Scrn U Benzodiazepines Scrn Urine Cocaine Screen U Cannabinoids Screen SARS CoV-2 RNA Rapid ALICJA 09/17/21 09/17/21 09/17/21 19:02 19:02 20:30 WBC RBC Hgb Hct MCV MCH MCHC RDW Coeff of [place] Plt Count Immature Gran % (Auto) Neut % (Auto) Lymph % (Auto) [place] % (Auto) Eos % (Auto) Baso % (Auto) Neut # (Auto) Lymph # (Auto) [place] # (Auto) Eos # (Auto) Baso # (Auto) Immature Gran # (Auto) ESR PT INR Sodium Potassium Chloride Carbon Dioxide Anion Gap BUN Creatinine Estimated GFR (MDRD) BUN/Creatinine Ratio Glucose Hemoglobin A1c 9.10 H D Calcium Phosphorus 4.50 Magnesium 2.22 Total Bilirubin AST ALT Alkaline Phosphatase Troponin I NT-Pro-B Natriuret Pep Total Protein Albumin Globulin Albumin/Globulin Ratio Urine Color Urine Clarity Urine pH Ur Specific [place] Urine Protein Urine Glucose (UA) Urine Ketones Urine Blood Urine Nitrite Urine Bilirubin Urine Urobilinogen Ur Leukocyte Esterase Urine Microscopic RBC Urine Microscopic WBC Ur Squamous Epith Cells Urine Mucus Urine Opiates Screen Ur Oxycodone Screen Urine Methadone Screen Ur Propoxyphene Screen Ur Barbiturates Screen U Tricyclic Antidepress Ur Phencyclidine Scrn Ur Amphetamine Screen U Methamphetamines Scrn U Benzodiazepines Scrn Urine Cocaine Screen U Cannabinoids Screen SARS CoV-2 RNA Rapid ALICJA Negative 09/17/21 09/17/21 09/18/21 22:06 22:06 05:19 WBC 5.35 RBC 2.93 L Hgb 8.4 L Hct 26.6 L MCV 90.8 MCH 28.7 MCHC 31.6 L RDW Coeff of [place] 14.8 Plt Count 301 Immature Gran % (Auto) 0.2 Neut % (Auto) 51.9 Lymph % (Auto) 33.5 [place] % (Auto) 9.9 Eos % (Auto) 3.6 Baso % (Auto) 0.9 Neut # (Auto) 2.8 Lymph # (Auto) 1.8 [place] # (Auto) 0.5 Eos # (Auto) 0.2 Baso # (Auto) 0.1 Immature Gran # (Auto) 0.0 ESR PT INR Sodium Potassium Chloride Carbon Dioxide Anion Gap BUN Creatinine Estimated GFR (MDRD) BUN/Creatinine Ratio Glucose Hemoglobin A1c Calcium Phosphorus Magnesium Total Bilirubin AST ALT Alkaline Phosphatase Troponin I NT-Pro-B Natriuret Pep Total Protein Albumin Globulin Albumin/Globulin Ratio Urine Color Yellow Urine Clarity Clear Urine pH 5.0 Ur Specific [place] 1.020 Urine Protein 2+ H Urine Glucose (UA) Trace H Urine Ketones Negative Urine Blood Negative Urine Nitrite Negative Urine Bilirubin Negative Urine Urobilinogen 0.2 Ur Leukocyte Esterase Negative Urine Microscopic RBC 0-2 Urine Microscopic WBC 20-30 Ur Squamous Epith Cells 2-5 Urine Mucus 2+ Urine Opiates Screen Negative Ur Oxycodone Screen Negative Urine Methadone Screen Negative Ur Propoxyphene Screen Negative Ur Barbiturates Screen Negative U Tricyclic Antidepress Negative Ur Phencyclidine Scrn Negative Ur Amphetamine Screen Negative U Methamphetamines Scrn Negative U Benzodiazepines Scrn Negative Urine Cocaine Screen Negative U Cannabinoids Screen Negative SARS CoV-2 RNA Rapid ALICJA 09/18/21 09/19/21 09/19/21 05:19 04:55 04:55 WBC 5.58 RBC 2.99 L Hgb 8.6 L Hct 27.1 L MCV 90.6 MCH 28.8 MCHC 31.7 L RDW Coeff of [place] 14.8 Plt Count 334 Immature Gran % (Auto) 0.2 Neut % (Auto) 51.9 Lymph % (Auto) 34.6 [place] % (Auto) 9.9 Eos % (Auto) 2.7 Baso % (Auto) 0.7 Neut # (Auto) 2.9 Lymph # (Auto) 1.9 [place] # (Auto) 0.6 Eos # (Auto) 0.2 Baso # (Auto) 0.0 Immature Gran # (Auto) 0.0 ESR PT INR Sodium 139.9 142.6 Potassium 4.20 3.98 Chloride 111.7 H 112.7 H Carbon Dioxide 24.3 22.4 Anion Gap 8.10 11.48 BUN 46.6 H 42.4 H Creatinine 2.77 H 2.70 H Estimated GFR (MDRD) 21.00 22.00 BUN/Creatinine Ratio 16.82 15.70 Glucose 172.1 H D 74.9 D Hemoglobin A1c Calcium 8.49 8.58 Phosphorus Magnesium Total Bilirubin 0.35 0.30 AST 18.2 17.3 ALT 10.0 8.4 Alkaline Phosphatase 61.3 61.8 Troponin I 0.024 NT-Pro-B Natriuret Pep 3340.000 H Total Protein 6.47 6.50 Albumin 3.19 L 3.17 L Globulin 3.28 3.33 Albumin/Globulin Ratio 0.97 0.95 Urine Color Urine Clarity Urine pH Ur Specific [place] Urine Protein Urine Glucose (UA) Urine Ketones Urine Blood Urine Nitrite Urine Bilirubin Urine Urobilinogen Ur Leukocyte Esterase Urine Microscopic RBC Urine Microscopic WBC Ur Squamous Epith Cells Urine Mucus Urine Opiates Screen Ur Oxycodone Screen Urine Methadone Screen Ur Propoxyphene Screen Ur Barbiturates Screen U Tricyclic Antidepress Ur Phencyclidine Scrn Ur Amphetamine Screen U Methamphetamines Scrn U Benzodiazepines Scrn Urine Cocaine Screen U Cannabinoids Screen SARS CoV-2 RNA Rapid ALICJA Education Provided to Patient and Family: Per nursing staff Follow-ups: Follow-ups : Director Of Informatics, ROSI Shen. PCP, Dr. Linder, for routine care. Discharge Disposition: Home Hospital Course: Admitted with a hypertensive crisis. No sign of [place]. Increased stress and some med noncompliance issues prompted the issue. BP controlled with oral and IV med. Details in the chart. CKD and chronic anemia remained at what appears to be baseline levels. 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 Plan: Discharge home. Resume home med. Recheck with her auto body mechanic apprentice and PCP soon. This discharge done as a [id number] exam with review entailing 40 minutes.
[2021-09-19 12:44] VITALS: BP 142/72
== END 2021-09-19 12:45 | disposition home or self-care (01) ==
LOC: MEDSURG A 18:20 → ED 18:20 → MEDSURG A 21:58
PROVIDERS: ADMIT Emergency Medicine; ATTEND Internal Medicine Geriatric Medicine
DX: Z86.16 Personal history of COVID-19; Z79.01 Long term (current) use of anticoagulants; Z63.4 Disappearance and death of family member; E11.9 Type 2 diabetes mellitus without complications; I16.0 Hypertensive urgency; Z51.81 Encounter for therapeutic drug level monitoring; Z91.19 Patient's noncompliance with other medical treatment and regimen; N18.4 Chronic kidney disease, stage 4 (severe); Z79.899 Other long term (current) drug therapy; Z20.822 Contact with and (suspected) exposure to COVID-19; Z79.4 Long term (current) use of insulin; Z72.0 Tobacco use

== ENCOUNTER 2021-11-20 01:50 | Inpatient (IN) ==
[2021-11-20 02:12] LABS: BASOPHILS # (AUTO) 0.1 K/uL (0-0.2); BASOPHILS % (AUTO) 0.6 % (0.0-3.0); EOSINOPHILS # (AUTO) 0.3 K/ul (0.0-0.7); EOSINOPHILS % (AUTO) 2.7 % (0.0-7.0); HEMATOCRIT 30.5 % (37.0-47.0); HEMOGLOBIN 9.6 g/dl (12.0-16.0); IMMATURE GRANULOCYTE # (AUTO) 0.1 (0.0-1.0); IMMATURE GRANULOCYTE % (AUTO) 0.7 % (0.0-5.0); LYMPHOCYTES % (AUTO) 20.7 (10.0-50.0); MEAN CORPUSCULAR HEMOGLOBIN 29.5 pg (27.0-31.0); MEAN CORPUSCULAR HGB CONC 31.5 (31.8-35.4); MEAN CORPUSCULAR VOLUME 93.8 fl (81.0-99.0); MONOCYTES # (AUTO) 0.7 K/uL (0.4-2.0); MONOCYTES % (AUTO) 7.8 (0-10); NEUTROPHILS # (AUTO) 6.4 K/ul (2.0-6.9); NEUTROPHILS % (AUTO) 67.5 % (42.2-75.2); PLATELET COUNT 350 10^3/uL (140-440); RDW COEFFICIENT OF VARIATION 14.9 % (11.6-14.8); RED BLOOD COUNT 3.25 10^6/ul (4.20-5.40)
[2021-11-20 02:20] VITALS: BMI 31.6
--- NOTE | 2021-11-20 02:23 | DI ---
EXAM: AP chest. HISTORY: Shortness of breath. FINDINGS: The bones are unremarkable. The cardiac silhouette is enlarged. There are bilateral infil trates. Impression: Bilateral infiltrates consistent with edema versus infection. Cardiomegaly.
[2021-11-20 02:24] LABS: BLOOD UREA NITROGEN 41.7 mg/dL (7-17); CALCIUM 8.72 mg/dL (8.4-10.2); CARBON DIOXIDE 27.6 mmol/L (22-30.0); CREATININE 2.86 mg/dL (0.60-1.30); GLUCOSE 325.1 mg/dL (74-106); MAGNESIUM 2.03 mg/dL (1.6-2.3); POTASSIUM 3.95 mmol/L (3.5-5.1); SODIUM 137.9 mmol/L (134.5-145)
[2021-11-20] MEDS ORDERED: LASIX IVP ONE (02:29)
[2021-11-20] MEDS ORDERED: CATAPRES PO STA ×2 (03:43→04:40)
[2021-11-20] MEDS ORDERED: LASIX IVP STA (05:57)
--- NOTE | 2021-11-20 05:58 | ED.PDOC ---
General ED Provider: Dr. SANIA TO MD Chief Complaint: Shortness of Air Stated Complaint: Patient presents with progressive dyspnea for one week. She has a history of CHF and renal insufficiency. Her son one week ago and she has not been compliant with dietary restrictions. Patient denies fever, chills, chest pain, palpitations, syncope, PND, cough. She has had orthopnea and peripheral edema. Time Seen by Provider: 11/20/21 03:04 Mode of Arrival: Ambulance Information Source: Patient and EMT Primary Care Provider: KENNY STARR Nursing and Triage Documentation Reviewed and Agree: Yes Does patient meet sepsis criteria?: No System Inflammatory Response Syndrome: Not Applicable Sepsis Protocol: For patient's 13 years and over: Temp is 96.8 and below OR 101 and greater Pulse >90 BPM Resp >20/minute Acutely Altered Mental Status Are patient's symptoms suggestive of a new infection, such as: -Pneumonia -Skin, Soft Tissue -Endocarditis -UTI -Bone, Joint Infection -Implantable Device -Acute Abdominal Infection -Wound Infection -Meningitis -Blood Stream Catheter Infection -Unknown Respiratory Complaint Exam Shortness of Air Complaint/Exam Onset/Duration: one week progressive dyspnea Symptoms Are: Still present Timing: Constant Initial Severity: Mild Current Severity: Severe Character: Reports Dyspnea at rest and Orthopnea Aggravating: Reports Recumbent position Alleviating: Reports Upright position Associated Signs and Symptoms: Reports Edema and Rapid breathing Related History: Reports Similar episode History of Healthcare-Acquired Pneumonia: No Pulmonary Embolism Risk Factors: Reports None Cardiac Risk Factors: Reports Diabetes, Hypertension and CHF Pseudomonas Risk Factors: Reports None Tuberculosis Risk Factors: Reports None Home Oxygen Use: No Recent Stress Test: No Recent Echo/LV Function: No Respiratory Distress: Moderate Stridor Present: No Tracheal Deviation: No Subcutaneous Emphysema: No Accessory Muscle Use: No Retractions: Not Present Diminished Breath Sounds: No Prolonged Expiratory Phase: No Unable to Speak Full Sentences: No Fatigue: Yes Leg Swelling: Yes Jean Paul's Sign Present: No Grunting Respirations: No Kussmaul Respirations: No Review of Systems Review Of Systems Constitutional: Reports Weakness Eyes: Reports No symptoms Ears, Nose, Mouth, Throat: Reports No symptoms Respiratory: Reports Orthopnea, Short of air and Other (tachypnea) Cardiac: Reports Edema GI: Reports No symptoms : Reports No symptoms Musculoskeletal: Reports No symptoms Skin: Reports No symptoms Neurological: Reports No symptoms Endocrine: Reports No symptoms Hematologic/Lymphatic: Reports No symptoms All Other Systems: Reviewed and Negative [facility] Medical History Chronic renal failure, stage 4 (severe) Diabetes mellitus Family History Mother Type 1 diabetes mellitus, Onset Age: 50 Social History Smoking and tobacco status: Current every day smoker Surgical History History of section Status post hysterectomy Female Reproductive History Menstrual Hx Hysterectomy: Yes Hx Tubal Ligation: No Physical Exam Physical Exam Appearance: Reports Ill-appearing, No pain distress, Obese and Other (Pleasant elderly female who is tachypneic. ) Ill-appearing: Moderate Pain Distress: None Eyes: Reports CHOCO and EOMI ENT: Reports Nose normal and Oropharynx normal Neck: Supple Respiratory: Reports Airway patent, Breath sounds equal and Crackles Cardiovascular: Reports RRR, No rub, No murmur and Other (moderate peripheral edema) GI/: Reports Soft, Nontender, No masses and Bowel sounds normal Musculoskeletal: Reports Normal strength and ROM intact Skin: Reports Warm, Dry and Normal color Neurological: Reports Sensation intact, Motor intact, Alert and Oriented Psychiatric: Reports Affect appropriate and Mood appropriate Interpretation Radiology Interpretation Radiology Interpretation By: Radiologist Exam Interpreted: CXR (cardiomegaly, bilateral pulmonary edema) Critical Care Note Critical Care Note Total Critical Care Time (mins): 60 Course Course Hematology/Chemistry: 11/20/21 02:10 11/20/21 02:10 Orders, Labs, Meds: Lab Review 11/20/21 11/20/21 11/20/21 02:10 02:10 02:15 WBC 9.50 RBC 3.25 L Hgb 9.6 L Hct 30.5 L MCV 93.8 MCH 29.5 MCHC 31.5 L RDW Coeff of [place] 14.9 H Plt Count 350 Immature Gran % (Auto) 0.7 Neut % (Auto) 67.5 Lymph % (Auto) 20.7 [place] % (Auto) 7.8 Eos % (Auto) 2.7 Baso % (Auto) 0.6 Neut # (Auto) 6.4 Lymph # (Auto) 2.0 [place] # (Auto) 0.7 Eos # (Auto) 0.3 Baso # (Auto) 0.1 Immature Gran # (Auto) 0.1 Sodium 137.9 Potassium 3.95 Chloride 103.0 Carbon Dioxide 27.6 Anion Gap 11.25 BUN 41.7 H Creatinine 2.86 H Estimated GFR (MDRD) 20.00 BUN/Creatinine Ratio 14.58 Glucose 325.1 H Calcium 8.72 Magnesium 2.03 NT-Pro-B Natriuret Pep 4780.000 H SARS CoV-2 RNA Rapid ALICJA Negative Orders Category Date Time Status EKG-(ED ONLY) Stat CARDIO 11/20/21 05:57 Ordered EKG-(ED ONLY) Stat CARDIO 11/20/21 06:02 Stop Req BLOOD GLUCOSE MONITORING (MED/SURG) 0630,1100,1700,2100 CARE 11/20/21 06:04 Active BASIC METABOLIC PANEL Stat LAB 11/20/21 02:10 Completed CBC W/ AUTO DIFF Stat LAB 11/20/21 02:10 Completed MAGNESIUM Stat LAB 11/20/21 02:10 Completed NT-PROBNP Stat LAB 11/20/21 02:10 Completed SARS COV-2 RNA RAPID ALICJA Stat LAB 11/20/21 02:15 Completed TROPONIN I Stat LAB 11/20/21 02:10 Received Clonidine HCl [Catapres] MEDS 11/20/21 03:43 Discontinued 0.1 mg PO ONCE STA Clonidine HCl [Catapres] MEDS 11/20/21 04:40 Discontinued 0.1 mg PO ONCE STA Furosemide [Lasix] MEDS 11/20/21 02:29 Discontinued 40 mg IVP ONCE ONE Furosemide [Lasix] MEDS 11/20/21 05:57 Discontinued 40 mg IVP ONCE STA Insulin Regular, Human [Humulin R] MEDS 11/20/21 06:03 Discontinued 10 unit IVP ONCE STA CHEST, 1V AP ONLY Stat RADS 11/20/21 01:55 Completed Medications Discontinued Medications Generic Name Dose Route Start Last Admin Trade Name Freq PRN Reason Stop Dose Admin Clonidine 0.1 mg 11/20/21 03:43 11/20/21 03:51 Clonidine Hcl 0.1 Mg Tablet PO 11/20/21 03:44 0.1 mg ONCE STA Administration Clonidine 0.1 mg 11/20/21 04:40 11/20/21 04:45 Clonidine Hcl 0.1 Mg Tablet PO 11/20/21 04:41 0.1 mg ONCE STA Administration Furosemide 40 mg 11/20/21 02:29 11/20/21 02:35 Furosemide Inj 40 Mg/4 Ml Vial IVP 11/20/21 02:30 40 mg ONCE ONE Administration Furosemide 40 mg 11/20/21 05:57 11/20/21 06:10 Furosemide Inj 40 Mg/4 Ml Vial IVP 11/20/21 05:58 40 mg ONCE STA Administration Insulin Human Regular 10 unit 11/20/21 06:03 11/20/21 06:10 Insulin Regular, Human 100 Unit/Ml (3ml) Vial IVP 11/20/21 06:04 10 unit ONCE STA Administration Vital Signs: Temp Pulse Resp BP Pulse Ox 11/20/21 01:50 98.9 F 98 30 H 223/121 H 96 Discharge Plan Discharge Patient Disposition: ADMITTED INPATIENT Discharge Problem: Acute exacerbation of CHF (congestive heart failure), Hypertensive urgency, Insulin dependent type 2 diabetes mellitus, Chronic progressive renal failure, stage 4 (severe) 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
[2021-11-20] MEDS ORDERED: HUMULIN R IVP STA (06:03)
[2021-11-20] MEDS ORDERED: TYLENOL PO PRN ×2 (06:24→09:21)
--- NOTE | 2021-11-20 06:40 | PCM ---
Chief Complaint Chief Complaint: dyspnea History of Present Illness History of Present Illness: Patient has a history of CHF and chronic renal failure. She presents now with a one week history of progressive dyspnea, orthopnea and generalized edema. Patient denies fever, chills, cough, chest pain, palpitations, syncope. Review of Systems Constitutional: Reports Weakness Eyes: Reports No symptoms Ears: Reports No symptoms Nose: Reports No symptoms Throat: Reports No symptoms Mouth: Reports No symptoms Respiratory: Reports Shortness of air Cardiovascular: Reports Orthopnea and Edema Gastrointestinal: Reports No symptoms Genitourinary: Reports No symptoms Neurological: Reports No symptoms Musculoskeletal: Reports No symptoms Skin: Reports No symptoms Immunology: Reports No symptoms Hematology: Reports No symptoms Endocrine: Reports No symptoms Psychiatric: Reports No symptoms Habits: Reports Tobacco use Allergies Allergies Allergy/AdvReac Type Severity Reaction Status Date / Time Penicillins AdvReac Unknown Verified 11/20/21 01:52 sulfamethoxazole AdvReac Dizziness Verified 11/20/21 01:52 [From Bactrim] trimethoprim [From Bactrim] AdvReac Dizziness Verified 11/20/21 01:52 [facility] Medical History Chronic renal failure, stage 4 (severe) Diabetes mellitus Surgical History History of section Status post hysterectomy Family History Mother Type 1 diabetes mellitus, Onset Age: 50 Social History Smoking and tobacco status: Current every day smoker Body Composition Height: 5 ft 3 in Weight: 81 kg Body Mass Index (BMI): 31.6 Vital Signs Temperature: 98.9 F Pulse Rate: 70 Respiratory Rate: 22 Blood Pressure: 148/89 O2 Sat by Pulse Oximetry: 72 Physical Examination Appearance: Reports Ill-appearing, No pain distress, Obese and Other (Elderly female who is tachypneic. ) Ill-appearing: Moderate Pain Distress: None Eyes: Reports CHOCO, EOMI and Conjunctiva clear ENT: Reports Nose normal and Oropharynx normal Neck: Supple Respiratory: Reports Airway patent, Breath sounds equal and Crackles Cardiovascular: Reports RRR, No rub, No murmur and Other (peripheral edema) GI/: Reports Soft, Nontender, No masses and Bowel sounds normal Musculoskeletal: Reports Normal strength and ROM intact Skin: Reports Warm, Dry and Normal color Neurological: Reports Sensation intact, Motor intact, Alert and Oriented Psychiatric: Reports Affect appropriate and Mood appropriate Lab/Tests/Diagnostic Imaging Lab/Tests/Diagnostic Imaging: Lab Review 11/20/21 11/20/21 11/20/21 02:10 02:10 02:10 WBC 9.50 RBC 3.25 L Hgb 9.6 L Hct 30.5 L MCV 93.8 MCH 29.5 MCHC 31.5 L RDW Coeff of [place] 14.9 H Plt Count 350 Immature Gran % (Auto) 0.7 Neut % (Auto) 67.5 Lymph % (Auto) 20.7 [place] % (Auto) 7.8 Eos % (Auto) 2.7 Baso % (Auto) 0.6 Neut # (Auto) 6.4 Lymph # (Auto) 2.0 [place] # (Auto) 0.7 Eos # (Auto) 0.3 Baso # (Auto) 0.1 Immature Gran # (Auto) 0.1 Sodium 137.9 Potassium 3.95 Chloride 103.0 Carbon Dioxide 27.6 Anion Gap 11.25 BUN 41.7 H Creatinine 2.86 H Estimated GFR (MDRD) 20.00 BUN/Creatinine Ratio 14.58 Glucose 325.1 H Calcium 8.72 Magnesium 2.03 Troponin I 0.034 NT-Pro-B Natriuret Pep 4780.000 H SARS CoV-2 RNA Rapid ALICJA 11/20/21 02:15 WBC RBC Hgb Hct MCV MCH MCHC RDW Coeff of [place] Plt Count Immature Gran % (Auto) Neut % (Auto) Lymph % (Auto) [place] % (Auto) Eos % (Auto) Baso % (Auto) Neut # (Auto) Lymph # (Auto) [place] # (Auto) Eos # (Auto) Baso # (Auto) Immature Gran # (Auto) Sodium Potassium Chloride Carbon Dioxide Anion Gap BUN Creatinine Estimated GFR (MDRD) BUN/Creatinine Ratio Glucose Calcium Magnesium Troponin I NT-Pro-B Natriuret Pep SARS CoV-2 RNA Rapid ALICJA Negative Orders Category Date Time Status ADMIT PATIENT INPATIENT .TO [facility] (MONITORED BED) ADMISSION 11/20/21 06:24 Ordered EKG-(ED ONLY) Stat CARDIO 11/20/21 05:57 Ordered EKG-(ED ONLY) Stat CARDIO 11/20/21 06:02 Stop Req ACTIVITY .Up With Assistance CARE 11/20/21 06:24 Ordered BLOOD GLUCOSE MONITORING (MED/SURG) 0630,1100,1700,2100 CARE 11/20/21 06:04 Active GIVE HS SNACK 2100 CARE 11/20/21 06:26 Ordered INTAKE & OUTPUT Q8HR CARE 11/20/21 06:24 Ordered IP: INSERT SALINE LOCK ONCE CARE 11/20/21 06:24 Ordered TELEMETRY MONITORING TELE CARE 11/20/21 06:24 Ordered VITAL SIGNS Q8HR CARE 11/20/21 06:24 Ordered ADA 1800 LOWELL. DIET DIETARY 11/20/21 Breakfast Ordered HS SNACK DIETARY 11/20/21 Dinner Ordered BASIC METABOLIC PANEL Stat LAB 11/20/21 02:10 Completed BNP [NT-PROBNP] Timed LAB 11/21/21 06:00 Ordered CBC W/ AUTO DIFF DAILY@0600 LAB 11/21/21 06:00 Ordered CBC W/ AUTO DIFF DAILY@0600 LAB 11/22/21 06:00 Ordered CBC W/ AUTO DIFF Stat LAB 11/20/21 02:10 Completed COMPREHENSIVE METABOLIC PANEL DAILY@0600 LAB 11/21/21 06:00 Ordered COMPREHENSIVE METABOLIC PANEL DAILY@0600 LAB 11/22/21 06:00 Ordered MAGNESIUM Stat LAB 11/20/21 02:10 Completed NT-PROBNP Stat LAB 11/20/21 02:10 Completed SARS COV-2 RNA RAPID ALICJA Stat LAB 11/20/21 02:15 Completed TROPONIN I Stat LAB 11/20/21 02:10 Received Acetaminophen [Tylenol] MEDS 11/20/21 06:24 Ordered 650 mg PO Q4H PRN Clonidine HCl [Catapres] MEDS 11/20/21 03:43 Discontinued 0.1 mg PO ONCE STA Clonidine HCl [Catapres] MEDS 11/20/21 04:40 Discontinued 0.1 mg PO ONCE STA Furosemide [Lasix] MEDS 11/20/21 06:30 Ordered 40 mg IVP BIDAC Furosemide [Lasix] MEDS 11/20/21 02:29 Discontinued 40 mg IVP ONCE ONE Furosemide [Lasix] MEDS 11/20/21 05:57 Discontinued 40 mg IVP ONCE STA Insulin Regular, Human [Humulin R] MEDS 11/20/21 06:03 Discontinued 10 unit IVP ONCE STA RESUSCITATION STATUS Routine OTHERS 11/20/21 06:24 Ordered CHEST, 1V AP ONLY Stat RADS 11/20/21 01:55 Completed CXR [CHEST, 1V AP ONLY] Timed RADS 11/21/21 06:29 Ordered Medications Discontinued Medications Generic Name Dose Route Start Last Admin Trade Name Maame PRN Reason Stop Dose Admin Clonidine 0.1 mg 11/20/21 03:43 11/20/21 03:51 Clonidine Hcl 0.1 Mg Tablet PO 11/20/21 03:44 0.1 mg ONCE STA Administration Clonidine 0.1 mg 11/20/21 04:40 11/20/21 04:45 Clonidine Hcl 0.1 Mg Tablet PO 11/20/21 04:41 0.1 mg ONCE STA Administration Furosemide 40 mg 11/20/21 02:29 11/20/21 02:35 Furosemide Inj 40 Mg/4 Ml Vial IVP 11/20/21 02:30 40 mg ONCE ONE Administration Furosemide 40 mg 11/20/21 05:57 11/20/21 06:10 Furosemide Inj 40 Mg/4 Ml Vial IVP 11/20/21 05:58 40 mg ONCE STA Administration Insulin Human Regular 10 unit 11/20/21 06:03 11/20/21 06:10 Insulin Regular, Human 100 Unit/Ml (3ml) Vial IVP 11/20/21 06:04 10 unit ONCE STA Administration Assessment (1) Acute exacerbation of CHF (congestive heart failure): Status: Acute Code(s): I50.9 - Heart failure, unspecified SNOMED Code(s): 360893625 (2) Hypertensive urgency: Status: Acute Code(s): I16.0 - Hypertensive urgency SNOMED Code(s): 647315891 (3) Chronic progressive renal failure, stage 4 (severe): Status: Acute Code(s): N18.4 - Chronic kidney disease, stage 4 (severe) SNOMED Code(s): 160545193 (4) Insulin dependent type 2 diabetes mellitus: Status: Acute Code(s): E11.9 - Type 2 diabetes mellitus without complications; Z79.4 - residential (current) use of insulin SNOMED Code(s): 113746977 Plan Plan: Patient to be admitted for diuresis and control of her BP and diabetes.
[2021-11-20] MEDS: LASIX IVP SCH ×2 (07:31→18:06)
[2021-11-20] MEDS ORDERED: COZAAR PO SCH (09:30)
[2021-11-20] MEDS: ELIQUIS PO SCH ×2 (09:53→20:27)
[2021-11-20] MEDS: COREG PO SCH ×2 (09:54→17:36)
[2021-11-20] MEDS: COZAAR PO SCH (09:55)
[2021-11-20] MEDS: ASPIRIN EC PO SCH (09:56)
[2021-11-20] MEDS: VITAMIN D PO SCH (09:56)
[2021-11-20] MEDS: HUMULIN R SUBCUT PRN (20:29)
[2021-11-20] MEDS ORDERED: LANTUS SUBCUT SCH (21:00)
--- NOTE | 2021-11-20 22:28 | PCM.PROG ---
Date Seen by Provider: 11/20/21 Time Seen by Provider: 12:00 Subjective: Chief complaint - shortness of breath. Feeling better after IV lasix. Less dyspnea, BP better. She would like to know why she sometimes has a panic attack after she has a BM. Objective: Vitals: T=97.8 F, P=70, R=18, UJ=383/84, SPO2=98 HEENT: [wnl] Neck: [supple] Lungs: [clear] CVS: [RRR] Abdomen: [soft] Extremities: [intact without sig. edema] Neurological: [intact] Skin: wnl] Lab/Tests/Diagnostic Imaging: [see report] (1) Acute exacerbation of CHF (congestive heart failure): Status: Acute Code(s): I50.9 - Heart failure, unspecified SNOMED Code(s): 737398994 Assessment: CHF clinically improved with diuretics. (2) Hypertensive urgency: Status: Acute Code(s): I16.0 - Hypertensive urgency SNOMED Code(s): 839381932 Assessment: BP normalized. (3) Chronic progressive renal failure, stage 4 (severe): Status: Acute Code(s): N18.4 - Chronic kidney disease, stage 4 (severe) SNOMED Code(s): 632114797 Assessment: Will need monitored, anticipate worsening with diuresis. 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 Her usual med plus sliding scale. Plan: Continue med. Check labs in a.m. She is thinking she will go home tomorrow, but would like referred for counseling services to help her with panic attacks.
[2021-11-21 05:06] LABS: BASOPHILS % (AUTO) 0.5 % (0.0-3.0); EOSINOPHILS # (AUTO) 0.3 K/ul (0.0-0.7); EOSINOPHILS % (AUTO) 3.8 % (0.0-7.0); HEMATOCRIT 28.6 % (37.0-47.0); HEMOGLOBIN 8.9 g/dl (12.0-16.0); IMMATURE GRANULOCYTE % (AUTO) 0.3 % (0.0-5.0); LYMPHOCYTES # (AUTO) 2.3 K/uL (0.60-3.4); LYMPHOCYTES % (AUTO) 34.4 (10.0-50.0); MEAN CORPUSCULAR HEMOGLOBIN 29.1 pg (27.0-31.0); MEAN CORPUSCULAR HGB CONC 31.1 (31.8-35.4); MEAN CORPUSCULAR VOLUME 93.5 fl (81.0-99.0); MONOCYTES # (AUTO) 0.7 K/uL (0.4-2.0); MONOCYTES % (AUTO) 11.2 (0-10); NEUTROPHILS # (AUTO) 3.3 K/ul (2.0-6.9); NEUTROPHILS % (AUTO) 49.8 % (42.2-75.2); PLATELET COUNT 312 10^3/uL (140-440); RDW COEFFICIENT OF VARIATION 14.9 % (11.6-14.8); RED BLOOD COUNT 3.06 10^6/ul (4.20-5.40); WHITE BLOOD COUNT 6.54 K/ul (4.6-10.2)
[2021-11-21 05:17] LABS: ALANINE AMINOTRANSFERASE 11.3 U/L (0-35); ALBUMIN 3.3 g/dL (3.5-5.0); ALKALINE PHOSPHATASE 75.4 U/L (53-141); ASPARTATE AMINO TRANSFERASE 23.5 U/L (14-36); BILIRUBIN,TOTAL 0.52 mg/dL (0.2-1.3); BLOOD UREA NITROGEN 48.1 mg/dL (7-17); CALCIUM 8.76 mg/dL (8.4-10.2); CARBON DIOXIDE 32.3 mmol/L (22-30.0); CHLORIDE 103.6 mmol/L (98-107); CREATININE 3.11 mg/dL (0.60-1.30); GLUCOSE 104.9 mg/dL (74-106); MAGNESIUM 2.15 mg/dL (1.6-2.3); POTASSIUM 3.93 mmol/L (3.5-5.1); TOTAL PROTEIN 6.67 g/dL (6.3-8.2)
[2021-11-21 05:29] VITALS: BP 117/67; TEMP 98.1
[2021-11-21] MEDS: LASIX IVP SCH (05:40)
--- NOTE | 2021-11-21 08:48 | PCM.PROG ---
Date Seen by Provider: 11/21/21 Time Seen by Provider: 08:44 Subjective: Patient breathing much easier and feeling better. BP and blood sugar both much better controlled. Patient oxygen sat 88-89% on RA. Objective: Vitals: T=98.1 F, P=60, R=16, XO=072/67, ZLM7=078 Patient in better spirits. Breathing without any distress. HEENT: [] Neck: [] Lungs: [] Chest clear. BS equal. Better air exchange. CVS: [] RRR. Less peripheral edema. Abdomen: [] Soft, nontender. Extremities: [] Neurological: [] Skin: [] Lab/Tests/Diagnostic Imaging: [] (1) Acute exacerbation of CHF (congestive heart failure): Status: Acute Code(s): I50.9 - Heart failure, unspecified SNOMED Code(s): 356637560 Assessment: Much improved. (2) Hypertensive urgency: Status: Acute Code(s): I16.0 - Hypertensive urgency SNOMED Code(s): 494065492 Assessment: BP well controlled. 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 Plan: Patient will be discharged home today. Follow up with Dr Linder within one week. Continue lasix 40mg QD. Otherwise continue meds as before admission.
--- NOTE | 2021-11-21 09:09 | PCM.DC ---
Final Diagnosis: acute exacerbation of CHF hypertensive urgency poorly controlled diabetes mellitus hypoxemia chronic renal failure Physical Exam Appearance: Well-appearing, No pain distress, Obese and Other (Patient appears much stronger and is in better spirits. Breathing easier.) Ill-appearing: Mild Pain Distress: None Eyes: CHOCO, EOMI and Conjunctiva clear ENT: Nose normal and Oropharynx normal Neck: Supple Respiratory: Airway patent, Breath sounds clear and Breath sounds equal Cardiovascular: RRR, No rub, No murmur and Other (No peripheral edema) GI/: Soft, Nontender and Bowel sounds normal Musculoskeletal: ROM intact and No edema Skin: Warm, Dry and Normal color Neurological: Sensation intact, Motor intact, Alert and Oriented Psychiatric: Affect appropriate and Mood appropriate (1) Acute exacerbation of CHF (congestive heart failure): Status: Acute Code(s): I50.9 - Heart failure, unspecified SNOMED Code(s): 087055183 (2) Hypertensive urgency: Status: Acute Code(s): I16.0 - Hypertensive urgency SNOMED Code(s): 779799237 (3) Chronic progressive renal failure, stage 4 (severe): Status: Acute Code(s): N18.4 - Chronic kidney disease, stage 4 (severe) SNOMED Code(s): 453825372 (4) Insulin dependent type 2 diabetes mellitus: Status: Acute Code(s): E11.9 - Type 2 diabetes mellitus without complications; 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 Her BP and DM were also poorly controlled. Prognosis/Condition at Discharge: Condition at discharge was stable. Education Provided to Patient and Family: CHF, diet recommendations for CHF and DM Follow-ups: Follow up with Dr Linder within one week. Discharge Disposition: Home Hospital Course: Patient was admitted with acute exacerbation of CHF. She was diuresed and had improvement of her dyspnea. Patient did continue to have oxygen saturation of 88-89% on RA even after her CHF had improved. She does already have home oxygen available. Her BP and DM were much better controlled while hospitalized. Patient was instructed on dietary recommendations regarding sodium restriction and carbohydrate intake. Plan: Plan as above.
[2021-11-21] MEDS: COZAAR PO SCH (09:10)
[2021-11-21] MEDS: ASPIRIN EC PO SCH (09:10)
[2021-11-21] MEDS: ELIQUIS PO SCH (09:11)
[2021-11-21] MEDS: COREG PO SCH (09:11)
[2021-11-21] MEDS: VITAMIN D PO SCH (09:11)
[2021-11-21 09:23] LABS: BILIRUBIN,URINE Negative (NEGATIVE); CLARITY,URINE Clear (CLEAR); COLOR,URINE Yellow (YELLOW); GLUCOSE, URINE (UA) Negative (NEGATIVE); KETONES,URINE Negative (NEGATIVE); LEUKOCYTE ESTERASE ,URINE Negative (NEGATIVE); NITRITE,URINE Negative (NEGATIVE); PROTEIN,URINE 2+ (NEGATIVE); URINE, BLOOD Trace-intact (NEGATIVE); UROBILINOGEN,URINE 0.2 (0.2)
[2021-11-21] MEDS: HUMULIN R SUBCUT PRN (11:51)
--- NOTE | 2021-11-21 13:21 | DI ---
EXAM: AP portable upright chest HISTORY: Bilateral infiltrates COMPARISON: 11/20/2021 FINDINGS: There is improvement in the bilateral infiltrates compared to 11/20/2021. The cardiac neyda houette remains mildly enlarged. Vascular calcifications present in the aortic arch. IMPRESSION: Improvement in bilateral interstitial infiltrates compared to November 20 2021.
[2021-11-22] MEDS ORDERED: LASIX IVP SCH (06:30)
== END 2021-11-21 13:55 | disposition home or self-care (01) | DRG 292 ==
LOC: ED 01:50 → MEDSURG A 06:03
PROVIDERS: ADMIT Surgery; ATTEND Surgery
DX: R60.1 Generalized edema; I50.9 Heart failure, unspecified; Z79.899 Other long term (current) drug therapy; Z63.4 Disappearance and death of family member; R00.0 Tachycardia, unspecified; R06.02 Shortness of breath; R09.02 Hypoxemia; E11.65 Type 2 diabetes mellitus with hyperglycemia; I16.0 Hypertensive urgency; Z79.4 Long term (current) use of insulin; R06.09 Other forms of dyspnea; Z79.01 Long term (current) use of anticoagulants; N18.4 Chronic kidney disease, stage 4 (severe); Z51.81 Encounter for therapeutic drug level monitoring; N18.9 Chronic kidney disease, unspecified; Z20.822 Contact with and (suspected) exposure to COVID-19